=== PATIENT | female | born 1975 | race Caucasian/White ===

== ENCOUNTER 2020-11-06 07:59 | Outpatient (REF) | payer OTHER, SELFPAY ==
[2020-11-06 11:24] LABS: MANUAL DIFF FLAG NO
[2020-11-06 11:37] LABS: Basophils Absolute Auto 0.1 X10*3/uL (0.0-0.2); Basophils Percent Auto 0.7 % (0-2); Eosinophils Absolute Auto 0.4 X10*3/uL (0.0-0.4); Eosinophils Percent Auto 4.8 % (0-4); Hematocrit 39.3 % (37-47); Imm Gran Abs Auto 0.03 X10*3/uL (0.00-0.03); Imm Gran Pct Auto 0.4 % (0.0-0.4); Lymphocytes Absolute Auto 1.8 X10*3/uL (1.2-4.9); Lymphocytes Percent Auto 24.4 % (20-40); Mean Corpuscular HGB Conc 33.1 g/dl (31.0-35.0); Mean Corpuscular Hemoglobin 29.7 pg (27.0-33.0); Mean Corpuscular Volume 89.9 fL (80-98); Mean Platelet Volume 10.2 fL (9.4-12.3); Monocytes Absolute Auto 0.6 X10*3/uL (0.1-1.2); Monocytes Percent Auto 7.6 % (2-11); Neutrophils Absolute Auto 4.7 X10*3/uL (2.0-8.3); Neutrophils Percent Auto 62.1 % (45-73); Platelet Count 315 X10*3/uL (160-400); Red Blood Count 4.37 X10*6/uL (4.20-5.50); Red Cell Distribution Width 12.4 % (11.0-16.0); White Blood Count 7.5 X10*3/uL (4.8-10.8)
[2020-11-06 12:25] LABS: Alanine Aminotransferase 17 U/L (0-31); Anion Gap 11 (12-20); Aspartate Amino Transferase 16 U/L (5-31); Blood Urea Nitrogen 13 mg/dL (9-16); Calcium 9.2 mg/dL (8.4-10.2); Carbon Dioxide 29 mmol/L (22-29); Chloride 103 mmol/L (96-108); Cholesterol 235 mg/dL; Estimated Glomerular Filt Rate > 60; Glucose Fasting 87 mg/dL (60-99); HDL Cholesterol 57 mg/dL; LDL Cholesterol Calculated 144 mg/dl; Potassium 3.9 mmol/L (3.3-5.1); Sodium 139 mmol/L (135-145); Triglycerides 172 mg/dL
[2020-11-06 12:48] LABS: Vitamin D 25-OH Total 15.4 ng/mL (>30)
== END 2020-11-06 08:00 | disposition home or self-care (01) ==
LOC: HO.HMGCLDS 07:59
PROVIDERS: PCP Internal Medicine; Visit Provider Internal Medicine
DX: K58.9 Irritable bowel syndrome, unspecified (principal); L30.9 Dermatitis, unspecified; I10 Essential (primary) hypertension; Z80.41 Family history of malignant neoplasm of ovary
CPT/HCPCS: 36415; 80048; 80061; 82306; 84443; 84450; 84460; 85025

== ENCOUNTER 2020-11-25 08:02 | Outpatient (REF) | payer OTHER, SELFPAY ==
[2020-11-28 04:27] LABS: HPV mRNA E6/E7 rflx Not Detected (Not Detected)
== END 2020-11-25 08:03 | disposition home or self-care (01) ==
LOC: HO.LAB 08:02
PROVIDERS: PCP Internal Medicine; Visit Provider Obstetrics & Gynecology
DX: Z01.419 Encounter for gynecological examination (general) (routine) without abnormal findings (principal); Z11.51 Encounter for screening for human papillomavirus (HPV); Z80.41 Family history of malignant neoplasm of ovary
CPT/HCPCS: 87624; 88142

== ENCOUNTER 2020-12-08 13:58 | Outpatient (REF) | payer OTHER, SELFPAY ==
--- NOTE | ~2020-12-08 | US_ITS ---
EXAMINATION: PELVIC ULTRASOUND CLINICAL INFORMATION: Family history of malignant neoplasms of ovary. COMPARISON: None TECHNIQUE: Both transabdominal and endovaginal scanning was performed. FINDINGS: An anteverted anteflexed uterus measuring 8.2 x 3.5 x 5.0 cm is present. The endometrium appears normal at 1 cm. Right ovary measures 4.5 x 4.0 x 3.3 cm for a volume of 31 mL which includes a 3.5 x 1.8 x 2.6 cm cyst along with a 1.8 x 1.8 x 1.8 cm cyst. The left ovary measures 2.1 x 1.1 x 2.0 cm for a volume of 2.4 mL and appears normal. No free fluid is present in the cul-de-sac. Incidental note made of nabothian cysts. US/US pelvic and transvaginal IMPRESSION: Right-sided ovarian cysts present, the largest 3.5 cm. In most cases, such cysts do not require follow-up.
== END 2020-12-08 13:59 | disposition home or self-care (01) ==
LOC: HO.US 13:58
PROVIDERS: Visit Provider Obstetrics & Gynecology
DX: Z80.41 Family history of malignant neoplasm of ovary (principal)
CPT/HCPCS: 76830; 76856

== ENCOUNTER 2020-12-18 13:03 | Outpatient (REF) | payer OTHER, SELFPAY ==
[2020-12-24 16:08] LABS: Transglutaminase Ab IgG 5 U/mL; Transglutaminase IgA 1 U/mL
== END 2020-12-18 13:04 | disposition home or self-care (01) ==
LOC: HO.LAB 13:03
PROVIDERS: PCP Internal Medicine; Referring Provider Internal Medicine; Visit Provider Nurse Practitioner Family
DX: R10.11 Right upper quadrant pain (principal); R14.0 Abdominal distension (gaseous); K21.9 Gastro-esophageal reflux disease without esophagitis; K58.9 Irritable bowel syndrome, unspecified; R10.9 Unspecified abdominal pain; K59.00 Constipation, unspecified
CPT/HCPCS: 36415; 83516

== ENCOUNTER → 2020-12-22 11:37 | Outpatient (BNVA) | payer OTHER, SELFPAY | PROVIDERS: PCP Internal Medicine; Visit Provider Obstetrics & Gynecology ==

== ENCOUNTER 2020-12-29 17:56 | Outpatient (REF) | payer OTHER, SELFPAY | END 2020-12-29 17:57 | disposition home or self-care (01) | LOC: HO.LNP 17:56 | PROVIDERS: Visit Provider Nurse Practitioner Family | DX: K21.9 Gastro-esophageal reflux disease without esophagitis (principal) | CPT/HCPCS: 87338 ==

== ENCOUNTER 2021-02-16 08:04 | Day surgery (SDC) | payer OTHER, SELFPAY ==
[2021-02-11 09:53] VITALS: BMI 31.1
--- NOTE | 2021-02-16 08:08 | P.CONAN_ITS ---
[facility] Active Problems Active Problems: All Active Problems (Updated 11/24/20 @ 09:36 by Jesica ya MD) IBS (irritable bowel syndrome) (Acute) Acute eczema (Acute) Cellulitis of buttock, right (Acute) History of repair of anterior cruciate ligament of right knee (Acute) Depression (Acute) Chronic GERD (Acute) Family history of ovarian cancer (Acute) Past Medical History Medical History Chronic GERD Depression Family history of ovarian cancer Gastric ulcer Functional capacity: independent ambulation Patient : No Family History Family History Mother Ovarian cancer Father Bladder cancer Alzheimer disease HTN (hypertension) Maternal Aunt Endometrium cancer Diabetes HTN (hypertension) Family/Other Breast cancer Paternal Uncle Heart attack Paternal Uncle Lung cancer Paternal Grandfather Stroke Maternal Grandfather Parkinsons disease Paternal Grandmother Diabetes Family history of problems with anesthesia: No Surgical History Surgical History History of esophagogastroduodenoscopy (EGD) History of repair of anterior cruciate ligament of right knee History of Problems with Anesthesia: No Social History Social History Are you a primary career services manager to a significant other at home: No Alcohol intake: current Alcohol intake frequency: 0-2 drinks per day Alcohol type: wine Patient Tobacco Use Status: Never used Tobacco Use of substances other than those prescribed or required for medical reasons: No Are you DNR?: No Advance Directives: No Advance Directives Information Provided: No Advance Directives on File: No Patient : No FDLMP: 01/08/2021 Gender identity: Female Meds Allergies Allergy/AdvReac Type Severity Reaction Status Date / Time No Known Allergies Allergy Verified 02/11/21 09:52 Active Medications: Current Medications Generic Name Dose Route Start Last Admin Trade Name Freq PRN Reason Stop Dose Admin Lactated Ringer's 1,000 mls @ 50 mls/hr 02/16/21 08:15 Lr IVCONT .Q20H ESTELLA Home Medications Medication Instructions Recorded Confirmed Last Taken Type cetirizine 10 mg tablet (Zyrtec) 10 mg PO DAILY 11/03/20 02/11/21 Unknown History triamcinolone acetonide 0.025 % appl TOPICAL BID 11/24/20 12/18/20 Unknown History topical cream triamcinolone acetonide 0.1 % 1 applic TOPICAL BID-TID 11/24/20 12/18/20 Unknown History topical cream esomeprazole magnesium 20 mg 20 mg PO DAILY 12/18/20 02/11/21 Unknown History capsule,delayed release pimecrolimus 1 % topical cream appl TOPICAL BEDTIME 12/18/20 12/18/20 Unknown History Exam Exam Date and Time: February 16, 2021 0808 Height,Weight and Vital Signs: Height 5 ft 8 in Weight 92.986 kg Airway Mallampati Class: II TM Dist: >3cm Neck ROM: Full Heart: RRR Lungs: TA Assessment and Plan Final Anesthetic Review Family History of Problems with Anesthesia: No History of Problems with Anesthesia: No
--- NOTE | 2021-02-16 08:10 | MHC.SHP ---
Pre-Procedural Eval Section A Date of Service: 02/16/21 The patient is an INPATIENT: No The History & Physical has been completed within 30 days and I have reviewed it.: No Section B Chief Complaint: GERD Details of Present Illness: GERD, abdominal bloating Relevant Family History (Specify if Yes): Yes Relevant Social History: None Present Medications: see Short Stay Collaborative assessment Medical History: Significant History (Chronic GERD Depression Family history of ovarian cancer Gastric ulcer) History of Previous Operations: Relevant previous surgery/procedure and date(s) (History of repair of anterior cruciate ligament of right knee) Allergies: Allergies Allergy/AdvReac Type Severity Reaction Status Date / Time No Known Allergies Allergy Verified 02/11/21 09:52 Review of Systems Sugical H&P ROS: Negative: Constitution, Cardiovascular and Respiratory and Yes, Specify: Gastrointestinal (gas and bloating) Exam Surgical H&P Exam: Normal: Heart, Normal: Lungs, Normal: Extremities and Normal: Abdomen Plan Diagnosis/Plan: Unchanged I have reviewed the history and physical and performed a pertinent physical examination on my patient. No changes have occurred unless specified.
[2021-02-16 08:25] LABS: UPreg QC Valid YES; Urine Pregnancy NEGATIVE (NEGATIVE)
[2021-02-16] MEDS: Lactated Ringers 1,000 ML 50 ML IVCONT (08:30)
[2021-02-16 08:34] VITALS: BP 118/72; PULSE 75; RESP 16; TEMP 36.4; O2SAT 97
--- NOTE | 2021-02-16 09:08 | P.BOP_ITS ---
Brief Operative Note Date of Service: 02/16/21 Pre-op diagnosis: GERD, gas and bloating Post-op diagnosis: other (GERD, hiatal hernia, gastric ulcer, gastritis, gastric polyps, gastric nodule) Procedure: FLEXIBLE TRANSORAL UPPER GASTROINTESTINAL ENDOSCOPY WITH BIOPSIES Consent: Indications for the procedure and potential complications of bleeding, perforation, reaction to medications and missed diagnosis were discussed with the patient and informed consent was obtained. Instrument: Olympus GIF H 190 mid size upper endoscope Monitoring: Vital signs and clinical assessment, continuous EKG monitoring, Pulse oximetry, Carbon Dioxide monitoring and blood pressure monitoring were done throughout the procedure. Procedure: The patient was placed in the left lateral decubitis position and pre-procedure medications were administered and a bite block was placed. The endoscope was inserted into the mouth and advanced under direct vision to the third part of duodenum. A careful inspection was made as the upper endoscope was withdrawn including a retroflexed examination of the proximal stomach; Findings and interventions are described below. Findings: Larynx: Normal Esophagus: GE junction at 35 cms, hiatal hernia 35 to 39 cms. No esophagitis or Mccormick Stomach: A few 5 to 10 mm benign appearing gastric polyps in the body of the stomach - biopsied. A 7-8 mm chronic appearing ulcer in the pre-pyloric area - biopsied. A 12-15 mm benign appearing nodule in the gastric antrum - biopsied. Antral biopsies were obtained to check for H pylori. Grade 3 flap valve on retroflexed examination of the cardia. Duodenum: Normal bulb and descending duodenum. Biopsies were obtained from 3rd part of the duodenum to check for celiac sprue. Intervention: Biopsies as noted above Impression and Post Procedure Diagnosis: Endoscopy Findings: ESOPHAGUS: medium sized hiatal hernia STOMACH: Small gastric ulcer - likely due to NSAIDS, gastric polyps, antral no dule DUODENUM: Normal - biopsied to check for celiac sprue Plan: Await pathology results Patient has an appointment on 03/02/21 in the GI Clinic with Luiza Leonardo NP . Above findings were reviewed with the patient and GERD, hiatal hernia, PUD and Gastric polyps handouts were given in the discharge area Surgeon: Xochilt Schneider MD Anesthesia: MAC (Dr Roman) Was an Log Pond Worker used for this Procedure?: Yes Log Pond Worker: Casey Go Estimated blood loss (mL): 0 Pathology: other (A- SMALL BOWEL BXS R/O CELIAC B- GASTRIC ANTRUM BXS R/O H. PYLORI C- GASTRIC ULCER BXS D- GASTRIC ANTRAL NODULE E- GASTRIC POLYP) Condition: stable Disposition: PACU
--- NOTE | 2021-02-16 09:10 | W.PM.OPN ---
Operative Note Operative Note Date of Service: 02/16/21 Narrative: Pre-op diagnosis:?GERD, gas and bloating Post-op diagnosis:?other (GERD, hiatal hernia, gastric ulcer, gastritis, gastric polyps, gastric nodule) Procedure:? FLEXIBLE TRANSORAL UPPER GASTROINTESTINAL ENDOSCOPY WITH BIOPSIES Consent:?Indications for the procedure and potential complications of bleeding, perforation, reaction to medications and missed diagnosis were discussed with the patient and informed consent was obtained. Instrument:?Olympus GIF H 190 mid size upper endoscope Monitoring: Vital signs and clinical assessment, continuous EKG monitoring, Pulse oximetry, Carbon Dioxide monitoring and blood pressure monitoring were done throughout the procedure. Procedure:?The patient was placed in the left lateral decubitis position and pre-procedure medications were administered and a bite block was placed. The endoscope was inserted into the mouth and advanced under direct vision to the third part of duodenum. A careful inspection was made as the upper endoscope was withdrawn including a retroflexed examination of the proximal stomach; Findings and interventions are described below. Findings: Larynx:??Normal Esophagus:?GE junction at 35 cms, hiatal hernia 35 to 39 cms.? No esophagitis or Mccormick Stomach:?A few 5 to 10 mm benign appearing gastric polyps in the body of the stomach - biopsied.? A 7-8 mm chronic appearing ulcer in the pre-pyloric area - biopsied. A 12-15 mm benign appearing nodule in the gastric antrum - biopsied.? Antral biopsies were obtained to check for H pylori. Grade 3 flap valve on retroflexed examination of the cardia. Duodenum:?Normal bulb and descending duodenum.? Biopsies were obtained from 3rd part of the duodenum to check for celiac sprue. Intervention:?Biopsies as noted above Impression and Post Procedure Diagnosis: Endoscopy Findings: ESOPHAGUS: medium sized hiatal hernia STOMACH: Small gastric ulcer - likely due to NSAIDS, gastric polyps, antral nodule DUODENUM: Normal - biopsied to check for celiac sprue Plan: Await pathology results Patient has an appointment on 03/02/21 in the GI Clinic with Luiza Leonardo NP . Above findings were reviewed with the patient and GERD, hiatal hernia, PUD and Gastric polyps handouts were given in the discharge area Surgeon:?Xochilt Schneider MD Anesthesia:?MAC (Dr Roman) Was an Mutuel Department Manager used for this Procedure?:?Yes Mutuel Department Manager:?Casey Abbi Estimated blood loss (mL):?0 Pathology:?other (A- SMALL BOWEL BXS? R/O CELIAC? B- GASTRIC ANTRUM BXS? R/O H. PYLORI? C- GASTRIC ULCER BXS? D- GASTRIC ANTRAL NODULE? E- GASTRIC POLYP) Condition:?stable Disposition:?PACU
[2021-02-16 09:42] VITALS: BP 107/72; PULSE 78; RESP 16; TEMP 36.3; O2SAT 97
[2021-02-16 09:57] VITALS: BP 109/74; PULSE 73; RESP 16; O2SAT 97
--- NOTE | 2021-02-16 13:18 | HO.POSTANES ---
Post Anesthesia Evaluation Post Anesthesia Evaluation Vital Signs: Vital Signs Temp Pulse Resp BP Pulse Ox 02/16/21 09:57 73 16 109/74 97 02/16/21 09:42 97.4 F 78 16 107/72 97 02/16/21 08:34 97.6 F 75 16 118/72 97 Anesthesia: Monitored Mental Status: Awake Pain Control: Satisfactory Nausea/Vomiting: None Hydration: Adequate Anesthesia-Related Issues: No Anes. Related Issues Comments: aziza
== END 2021-02-16 10:55 | disposition home or self-care (01) ==
PROVIDERS: Anesthesiology; PCP Internal Medicine; Visit Provider Internal Medicine Gastroenterology
PROC: 0DJ08ZZ Inspection of Upper Intestinal Tract, Via Natural or Artificial Opening Endoscopic (ICD-10-PCS; CPT 43235; principal; 2021-02-16 09:10)
DX: K21.9 Gastro-esophageal reflux disease without esophagitis (principal); K29.70 Gastritis, unspecified, without bleeding; K31.7 Polyp of stomach and duodenum; K25.9 Gastric ulcer, unspecified as acute or chronic, without hemorrhage or perforation; K31.89 Other diseases of stomach and duodenum; K44.9 Diaphragmatic hernia without obstruction or gangrene
CPT/HCPCS: 43239; 81025; 88305; 88342

== ENCOUNTER → 2021-03-03 08:34 | Outpatient (BNVA) | payer OTHER, SELFPAY | PROVIDERS: PCP Internal Medicine; Visit Provider Nurse Practitioner Family ==

== ENCOUNTER → 2021-04-12 08:11 | Outpatient (BNVA) | payer OTHER, SELFPAY | PROVIDERS: PCP Internal Medicine; Visit Provider Nurse Practitioner Family ==

== ENCOUNTER 2021-05-10 08:11 | Outpatient (REF) | payer OTHER, SELFPAY ==
--- NOTE | ~2021-05-10 | MM_ITS ---
EXAMINATION: MM SCREENING DIGITAL BREAST TOMOSYNTHESIS, BILATERAL CLINICAL INFORMATION: Screening. Asymptomatic. Prior [id number] mammography currently unavailable. Family history premenopausal breast cancer, mother age 43 The lifetime risk of breast cancer based on the Tyrer-Cuzick Model is 15%. COMPARISON: None. TECHNIQUE: Digital breast tomosynthesis is performed in both the craniocaudal and mediolateral oblique views along with computer-aided detection (CAD). Synthesized 2D images are generated from the tomosynthesis. Additional bilateral exaggerated CC views are provided. FINDINGS: The breasts are heterogeneously dense, which may obscure small masses (ACR BI-RADS breast composition Category c). There is fine fibronodular parenchymal pattern. No significant mass or architectural abnormality or abnormal calcifications are demonstrated. The axilla and skin contours are unremarkable. Radiology staff will attempt to retrieve prior [id number]-[id number] mammography to allow for comparison in an addendum report. MM/MM tomosynthesis screening BI IMPRESSION: No mammographic evidence of malignancy. ASSESSMENT: BI-RADS 2: Benign RECOMMENDATION: 1. Routine annual mammography screening. 2. Radiology department staff will attempt to retrieve prior hni-cq-[id number] mammography to allow for comparison in an addendum report. This patient's information was entered into a reminder system with a target due date for their next mammogram.
== END 2021-05-10 08:12 | disposition home or self-care (01) ==
LOC: HO.MAMMO 08:11
PROVIDERS: PCP Internal Medicine; Visit Provider Internal Medicine
DX: Z12.31 Encounter for screening mammogram for malignant neoplasm of breast (principal)
CPT/HCPCS: 77063; 77067

== ENCOUNTER → 2021-05-25 10:22 | Outpatient (BNVA) | payer OTHER, SELFPAY | PROVIDERS: PCP Internal Medicine; Referring Provider Internal Medicine; Visit Provider Nurse Practitioner Family ==

== ENCOUNTER 2021-12-24 07:52 | Outpatient (REF) | payer OTHER, SELFPAY ==
[2021-12-24 12:00] LABS: MANUAL DIFF FLAG NO
[2021-12-24 12:06] LABS: Basophils Absolute Auto 0.1 X10*3/uL (0.0-0.2); Basophils Percent Auto 0.7 % (0-2); Eosinophils Absolute Auto 0.3 X10*3/uL (0.0-0.4); Eosinophils Percent Auto 4.3 % (0-4); Hematocrit 38.9 % (37.0-47.0); Hemoglobin 12.7 g/dl (12.0-16.0); Imm Gran Abs Auto 0.02 X10*3/uL (0.00-0.03); Imm Gran Pct Auto 0.3 % (0.0-0.4); Lymphocytes Absolute Auto 1.9 X10*3/uL (1.2-4.9); Lymphocytes Percent Auto 28.7 % (20-40); Mean Corpuscular HGB Conc 32.6 g/dl (31.0-35.0); Mean Corpuscular Volume 88.8 fL (80.0-98.0); Mean Platelet Volume 10.3 fL (9.4-12.3); Monocytes Absolute Auto 0.5 X10*3/uL (0.1-1.2); Monocytes Percent Auto 7.2 % (2-11); Neutrophils Percent Auto 58.8 % (45-73); Platelet Count 296 X10*3/uL (160-400); Red Blood Count 4.38 X10*6/uL (4.20-5.50); Red Cell Distribution Width 12.3 % (11.0-16.0); White Blood Count 6.8 X10*3/uL (4.8-10.8)
[2021-12-24 12:44] LABS: TSH reflex Free T4 3.05 uIU/mL (0.32-4.0); Vitamin D 25-OH Total 20.8 ng/mL (>30)
[2021-12-24 12:46] LABS: Alanine Aminotransferase 18 U/L (0-31); Albumin Level 4.2 g/dL (3.5-5.0); Alkaline Phosphatase 58 U/L (39-117); Anion Gap 12 (12-20); Aspartate Amino Transferase 16 U/L (5-31); Blood Urea Nitrogen 17 mg/dL (9-16); Calcium 9.1 mg/dL (8.4-10.2); Carbon Dioxide 26 mmol/L (22-29); Chloride 106 mmol/L (96-108); Cholesterol 229 mg/dL; Estimated Glomerular Filt Rate > 60; Glucose Fasting 102 mg/dL (60-99); HDL Cholesterol 59 mg/dL; LDL Cholesterol Calculated 147 mg/dl; Potassium 4.3 mmol/L (3.3-5.1); Sodium 140 mmol/L (135-145); Total Protein 7.1 g/dL (6.5-8.0); Triglycerides 115 mg/dL
[2021-12-24 13:56] LABS: Bilirubin Total 0.3 mg/dL (0.0-1.0)
== END 2021-12-24 07:53 | disposition home or self-care (01) ==
LOC: HO.HMGCLDS 07:52
PROVIDERS: PCP Internal Medicine; Visit Provider Internal Medicine
DX: Z00.01 Encounter for general adult medical examination with abnormal findings (principal); E78.5 Hyperlipidemia, unspecified; L30.9 Dermatitis, unspecified; F32.9 Major depressive disorder, single episode, unspecified; E55.9 Vitamin D deficiency, unspecified; K21.9 Gastro-esophageal reflux disease without esophagitis
CPT/HCPCS: 36415; 80053; 80061; 82306; 84443; 85025

== ENCOUNTER 2022-01-28 08:30 | Outpatient (REF) | payer OTHER, SELFPAY ==
--- NOTE | ~2022-01-28 | US_ITS ---
EXAMINATION: US PELVIS CLINICAL INFORMATION: Family history of malignant neoplasm of ovary. COMPARISON: Ultrasound pelvis 12/08/2020 TECHNIQUE: Ultrasound of the pelvis was performed using both transabdominal and transvaginal transducers along with Doppler. Transvaginal imaging was performed due to inadequate visualization transabdominally. FINDINGS: UTERUS: The uterus is anteverted, anteflexed and measures 9.17 cm in length, 4.21 mL in AP and 5.4 cm in transverse dimensions. The double wall endometrial thickness is 0.72 cm. The uterus is smooth in contour and has normal myometrial echogenicity. No visible fibroid. There is a small nabothian cyst in the cervix. ADNEXA: Both ovaries are visualized. There is normal color flow to the adnexa. There is no ovarian torsion. There is no pelvic ascites or fluid collection. Right ovary measures 4.57 cm 2.40 x 3.95 cm and volume 22.68 mL. There is a corpus luteal cyst measuring 2.3 x 1.8 x 1.5 cm and a paraovarian cyst measuring 2.2 x 2.5 x 2.1 cm, previously it measured 1.8 x 1.8 x 1.8 cm. Left ovary is best visualized on transabdominal viewing and measures 2.77 x 1.35 x 2.23 cm and volume 4.3 cm. No focal lesion is seen. There is no free fluid in the cul-de-sac. US/US pelvic and transvaginal IMPRESSION: Small nabothian cyst in the cervix. The uterus is unremarkable. Right ovarian corpus luteal cyst and a paraovarian cyst.. Previously right ovary cyst was present largest measuring 3.5 cm. The cyst seen now is is likely different cyst.. Unremarkable left ovary.
== END 2022-01-28 08:31 | disposition home or self-care (01) ==
LOC: HO.HMGCX 08:30
PROVIDERS: PCP Internal Medicine; Visit Provider Advanced Practice Midwife
DX: R10.2 Pelvic and perineal pain (principal); Z80.41 Family history of malignant neoplasm of ovary
CPT/HCPCS: 76830; 76856

== ENCOUNTER 2022-05-20 15:23 | Outpatient (REF) | payer OTHER, SELFPAY ==
--- NOTE | ~2022-05-20 | MM_ITS ---
EXAMINATION: MM SCREENING DIGITAL BREAST TOMOSYNTHESIS, BILATERAL CLINICAL INFORMATION: Screening. Asymptomatic. The lifetime risk of breast cancer based on the Tyrer-Cuzick Model is 11%. COMPARISON: Mammography: 05/10/2021; outside 2D synthesized images 05/04/2020 ([place], [place]). TECHNIQUE: Digital breast tomosynthesis is performed in both the craniocaudal and mediolateral oblique views along with computer-aided detection (CAD). Synthesized 2D images are generated from the tomosynthesis. FINDINGS: The breasts are heterogeneously dense, which may obscure small masses (ACR BI-RADS breast composition Category c). Breast tissue composition borders on average fibroglandular. There is fine fibronodular parenchymal pattern similar to prior studies. No developing density or interval mass or architectural abnormality. No abnormal calcifications. The axilla and skin contours are unremarkable. No significant changes. MM/MM tomosynthesis screening BI IMPRESSION: No mammographic evidence of malignancy. ASSESSMENT: BI-RADS 2: Benign RECOMMENDATION: Routine annual mammography screening. This patient's information was entered into a reminder system with a target due date for their next mammogram.
== END 2022-05-20 15:24 | disposition home or self-care (01) ==
LOC: HO.MAMMO 15:23
PROVIDERS: Visit Provider Internal Medicine
DX: Z12.31 Encounter for screening mammogram for malignant neoplasm of breast (principal)
CPT/HCPCS: 77063; 77067

== ENCOUNTER 2023-02-06 08:23 | Outpatient (AMB) | payer OTHER, SELFPAY ==
--- NOTE | 2023-02-06 08:34 | A.OFFVIS_ITS ---
Intake Vital Signs 02/06/23 08:36 Height 5 ft 8.5 in Weight 212 lb 1.355 oz BMI 31.8 BP 106/61 Blood Pressure Location Lt brachial Position Sitting Pulse 88 Intake Visit Reasons: Colonoscopy Screening Intake Note: Etelvina presents in office as a est.patient for a colonoscopy screening PT CC: pt reports having GERD pt denies any other GI Issues Member Of Congress Required: No Accompanied by: Self / Same As Patient Allergies muscle relaxer Adverse Reaction (Mild, Uncoded 02/06/23 08:34) hives HPI Colonoscopy Screening HPI Details LAST VISIT 05/25/2021 IBS (irritable bowel syndrome) Patient reports that she has been moving her bowels normally. Does report to have occasional bloating. Continue FODMAP diet as recommended on previous visits. Patient reports that she has been using MiraLax and that is helping her with bowel movements. Chronic GERD Acid reflux and sucralfate at bedtime. I will send patient a refill for both. Discussed with patient avoiding dietary triggers and NSAIDs. Discussed with her avoiding late night snacking. I will see her in 6 months, sooner on as needed basis. Patient is agreeable to this plan and verbalizes understanding of instructions. She was given the opportunity to ask questions and all questions answered. Plan Medications Refilled pantoprazole take one tablet half an hour before breakfast 40 mg PO DAILY 90 tabs 3RF K21.9 sucralfate 1 g PO BEDTIME 90 tabs 3RF K21.9 TODAY'S VISIT: Patient is here to as she continues to have epigastric discomfort and dyspepsia postprandially. Patient denies dysphagia or odynophagia. Patient was seen last in May of 2021. Patient states that she was feeling better and she did not follow-up with us. Patient was on pantoprazole and was doing well. Medication was stopped and patient was taking famotidine twice a day. However few weeks a go patient states that she began to have increase in her his symptoms of epigastric pain and discomfort postprandially. Patient does report that she is trying to avoid dietary triggers as much as possible. She realizes that some of her symptoms could be related to the food that she eats. Patient started [id number] Prilosec about couple weeks ago. This past week patient states that she has been doing better. Using Tums only once in a while for epigastric discomfort. Patient had upper endoscopy in January of 2021 that showed gastric ulcer. Patient is also due to go for colonoscopy. No family history of colorectal cancer. No issues with anesthesia in the past. Not on any anticoagulation medications. Patient denies any cardiac or respiratory symptoms. No history of infectious diseases in the past or present. [facility] Medical History Chronic GERD Colon cancer screening Depression Dyslipidemia Family history of ovarian cancer Gastric ulcer Impaired fasting glucose Vitamin D deficiency Surgical History History of esophagogastroduodenoscopy (EGD) History of repair of anterior cruciate ligament of right knee Family History Mother Ovarian cancer Father Bladder cancer Alzheimer disease HTN (hypertension) Maternal Aunt Endometrium cancer Diabetes HTN (hypertension) Family/Other Breast cancer Paternal Uncle Heart attack Paternal Uncle Lung cancer Paternal Grandfather Stroke Maternal Grandfather Parkinsons disease Paternal Grandmother Diabetes Social History Housing: House Are you a primary care transition manager to a significant other at home: No Alcohol intake: current Alcohol intake frequency: 0-2 drinks per day Alcohol type: wine Patient Tobacco Use Status: Never used Tobacco e-Cigarette/Vaping Use: Never Used service: No Current occupational status: employed Gender identity: Female Cognitive needs: No Hearing needs: No Vision needs: No Female Reproductive History Menstrual Age of Menarche: 15 Review of Systems Const Denies weight gain and Denies weight loss ENT Reports no additional complaints, Denies dysphagia and Denies odynophagia Card Reports no additional complaints Resp Reports no additional complaints GI Denies abdominal pain, Denies belching, Denies melena, Denies bloating, Reports constipation, Denies dysphagia, Denies excessive flatus, Reports dyspepsia, Reports heartburn, Denies diarrhea, Denies loose stools, Denies nausea, Denies odynophagia and Denies vomiting Reports no additional complaints Musc Reports no additional complaints Neuro Reports no additional complaints Psych Reports no additional complaints Endo Reports no additional complaints Physical Exam Vital Signs: Last Vital Signs Pulse 88 02/06/23 08:36 BP 106/61 02/06/23 08:36 BMI result Body Mass Index 31.8 Const General: healthy appearing, no acute distress and well developed Nutritional Appearance: obese Orientation/consciousness: patient oriented x3 HEENT Head: Yes normal to inspection, Yes normocephalic and Yes atraumatic Face and sinus: Yes normal facial exam Mouth: Normal oral and palatal mucosa present Throat: Yes posterior oropharynx normal, Yes tonsils normal and Yes uvula midline Eyes General: appearance normal, both eyes and all related structures Neck Neck: Yes normal visual inspection, Yes full ROM and Yes trachea midline Thyroid: Thyroid normal Resp Effort & Inspection: normal respiratory effort, able to speak in complete sentences, no tracheal deviation and symmetric chest movement Auscultation: clear to auscultation bilaterally Cardio Rate: regular rate Heart sounds: S1 normal heart sound present and S2 normal heart sound present GI Inspection: Yes normal to inspection, No distended and Yes obesity Palpation (GI): Soft to palpation, not firm, nontender and No hepatosplenomegaly present Auscultation: normal bowel sounds General: Yes no CVA tenderness Back/Spine/Pelvis Back: no CVA tenderness Skin General skin exam: elasticity normal, turgor normal and dry skin Neuro General: patient oriented x3 Psych Appearance: grossly normal Mental Status: mental status grossly normal Speech and movement: Normal speech and movement present Assessment & Plan Assessment & Plan (1) Colon cancer screening: Code(s): Z12.11 - Encounter for screening for malignant neoplasm of colon Plan: Patient denies any cardiac or respiratory symptoms.? However patient does report occasional epigastric discomfort postprandially, occasional dyspepsia without dysphagia or odynophagia. Denies any issues with anesthesia in the past.? Denies any history of sleep apnea.? No history infectious diseases in the past or present.? Not on any anticoagulation therapy.? No family or personal history of colon cancer or polyps.? Patient denies melena, hematochezia, unintentional weight loss or ribbon like stools.? Discussed at length the pre-procedure,? prep, diet & medications as well as what to expect prior, during and after the procedure.?? Stressed the importance of good bowel prep. ?Recommended the use of Vaseline or Calmoseptine OTC & baby wipes with bowel movements to promote comfort.? ?Patient verbalizes understanding and agrees to plan of care.? She was given the opportunity to ask questions and all questions answered.? We will see her after the procedure.? (2) Chronic GERD: Code(s): K21.9 - Gastro-esophageal reflux disease without esophagitis Plan: Patient will start taking pantoprazole in the morning half an hour before breakfast. Avoid dietary triggers and late night snacking. Importance of staying upright for minimal 3 hours after meals discussed with patient. Patient will go for upper endoscopy to re-evaluate. Patient has a history of ulcers in the past Medications: New pantoprazole take one tablet half an hour before breakfast 40 mg PO DAILY 30 tabs 2RF K21.9 - Gastro-esophageal reflux disease without esophagitis polyethylene glycol 3350 (Miralax) As directed by gastroenterology department at [facility] 238 grams PO ONCE 238 grams 0RF Z12.11 - Encounter for screening for malignant neoplasm of colon Coding Level of Care Code Est Pt Level 4 (99791) Diagnoses Colon cancer screening Z12.11 Chronic GERD K21.9 Time Spent (min) 35 Comment 20 minutes spent with patient and additional 15 minutes spent reviewing her records
[2023-02-06 08:36] VITALS: BP 106/61; PULSE 88; BMI 31.8
== END 2023-02-06 09:30 | disposition home or self-care (01) ==
PROVIDERS: PCP Internal Medicine; Visit Provider Nurse Practitioner Family
DX: Z01.818 Encounter for other preprocedural examination (principal); Z12.11 Encounter for screening for malignant neoplasm of colon; K21.9 Gastro-esophageal reflux disease without esophagitis; K30 Functional dyspepsia
CPT/HCPCS: 99213

== ENCOUNTER → 2023-02-06 08:23 | Outpatient (BNVA) | payer OTHER, SELFPAY | PROVIDERS: PCP Internal Medicine; Visit Provider Nurse Practitioner Family ==

== ENCOUNTER 2023-04-04 08:03 | Outpatient (AMB) | payer OTHER, SELFPAY ==
--- NOTE | 2023-04-04 08:09 | MHC.OFFVIS ---
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 Reports of regular menses until February but has had VB everyday since. She admits to eating healthy and tries to stay active with exercise. Currently sexually active, female only partner. Denies vaginal itching and irritation. She denies any hot flashes, but feels hot overall. History of random pelvic pain, sharp, intense a few times over the last year. Denies family hx of breast, or colon cancer. Has colonoscopy planned. Last pap smear 2020. Negative pap history. [facility] Medical History Impaired fasting glucose Colon cancer screening Vitamin D deficiency Dyslipidemia Depression Chronic GERD Gastric ulcer Family history of ovarian cancer Surgical History History of esophagogastroduodenoscopy (EGD) History of repair of anterior cruciate ligament of right knee Family History Mother Ovarian cancer Father Bladder cancer Alzheimer disease HTN (hypertension) Maternal Aunt Endometrium cancer Diabetes HTN (hypertension) Family/Other Breast cancer Paternal Uncle Heart attack Paternal Uncle Lung cancer Paternal Grandfather Stroke Maternal Grandfather Parkinsons disease Paternal Grandmother Diabetes Social History (Updated 04/04/23 @ 09:04 by Saniya Snow CNM) Housing: House Are you a primary career development coordinator/teacher to a significant other at home: No Alcohol intake: current Alcohol intake frequency: 0-2 drinks per day Alcohol type: wine Patient Tobacco Use Status: Never used Tobacco e-Cigarette/Vaping Use: Never Used service: No Current occupational status: employed Sexual orientation: Lesbian/Granados/Homosexual Gender identity: Female Cognitive needs: No Hearing needs: No Vision needs: No Female Reproductive History Menstrual Age of Menarche: 15 Duration of menses: 3-5 days Date of last menstrual period: 03/10/23 Total pregnancies: 0 Date of last pap smear: 11/25/20 (neg pap and hpv) Date of Mammogram: 05/20/22 ([facility] 2) Physical Exam Vital Signs: Last Vital Signs BP 122/64 04/04/23 08:10 BMI result Body Mass Index 32.1 Const General: cooperative, healthy appearing, no acute distress, well developed and alert Orientation/consciousness: patient oriented x3 HEENT Head: Yes normal to inspection Eyes General: appearance normal, both eyes and all related structures Neck Neck: Yes normal visual inspection Thyroid: Thyroid normal Chest Chest palpation & inspection: normal inspection of the chest Breast/axilla inspection: normal inspection of the breasts (no puckering, dimpling, peau de orange, retraction, discharge, masses) Breast/axilla palpation: normal palpation of the breasts Resp Effort & Inspection: normal respiratory effort GI Inspection: Yes normal to inspection Palpation (GI): Soft to palpation (to palpation) Rectal Exam - Female: deferred Other: Abnormal appearance, Unable to see OS due to to the downward deflection of the cervix fixed to vaginal posterior floor. General: Yes bladder normal to inspection External Female Exam: normal external appearance and normal appearance of the urethra Speculum Exam - Vagina: normal appearance of the vagina, normal palpation and abnormal vaginal discharge (brown discharge) Speculum Exam - Cervix: normal palpation Bimanual exam- vagina & uterus: normal palpation and normal palpation Bimanual Exam- Adnexa, other: normal adnexae and no masses Skin General skin exam: no rashes or lesions noted Neuro General: patient oriented x3 Cognition (Neuro): normal cognition Extrem General: Yes normal to inspection Psych Attitude: cooperative Thought process: Normal thought process present Assessment & Plan Assessment & Plan (1) Encounter for well woman exam: Code(s): Z01.419 - Encounter for gynecological examination (general) (routine) without abnormal findings Plan: Discussed: Current recommendations for pap smears per ASCCP guidelines. Breast awareness and periodic self breast exams. Maintaining a healthy lifestyle including a well balanced diet and routine exercise. Encouraged patient to sign up for patient portal. All of her questions and concerns were addressed to the best of my ability. RTO in one year for AG. (2) Abnormal uterine bleeding (AUB): Code(s): N93.9 - Abnormal uterine and vaginal bleeding, unspecified Plan: Counseled re: perimenopause vs menopause changes. Monitor periods, report any unscheduled bleeding. Warnings: heavy prolonged bleeding-go to the ED for immediate evaluation. Discussed work up including pelvic US, labs and consider future EMB: purpose was explained to rule out atypia, hyperplasia and uterine cancer. (3) Pelvic pain: Comment: random acute episodes Code(s): R10.2 - Pelvic and perineal pain Orders: Orders Complete Blood Count no Diff Today N93.9 - Abnormal uterine and vaginal bleeding, unspecified Pap Smear Today N93.9 - Abnormal uterine and vaginal bleeding, unspecified MM tomosynthesis screening BI Today Z12.31 - Encounter for screening mammogram for malignant neoplasm of breast Thyroid Stimulating Hormone Today N92.1 - Excessive and frequent menstruation with irregular cycle, N93.9 - Abnormal uterine and vaginal bleeding, unspecified US pelvic and transvaginal Today N93.9 - Abnormal uterine and vaginal bleeding, unspecified, R10.2 - Pelvic and perineal pain Bacterial Vaginosis Panel Today N93.9 - Abnormal uterine and vaginal bleeding, unspecified CT NG by PCR Today N93.9 - Abnormal uterine and vaginal bleeding, unspecified Coding Level of Care Code Est Pt Prev Care 40-64y(92481) Diagnoses Encounter for well woman exam Z01.419 Abnormal uterine bleeding (AUB) N93.9 Pelvic pain R10.2
[2023-04-04 08:10] VITALS: BP 122/64; BMI 32.1
== END 2023-04-04 08:59 | disposition home or self-care (01) ==
PROVIDERS: PCP Internal Medicine; Visit Provider Advanced Practice Midwife
DX: Z01.419 Encounter for gynecological examination (general) (routine) without abnormal findings (principal); N93.9 Abnormal uterine and vaginal bleeding, unspecified; R10.2 Pelvic and perineal pain
CPT/HCPCS: 99396

== ENCOUNTER 2023-04-04 08:03 | Outpatient (REF) | payer OTHER, SELFPAY ==
[2023-04-06 04:18] LABS: HPV mRNA E6/E7 rflx Not Detected (Not Detected)
== END 2023-04-04 08:04 | disposition home or self-care (01) ==
LOC: HO.LNP 08:03
PROVIDERS: PCP Internal Medicine; Visit Provider Advanced Practice Midwife
DX: Z01.419 Encounter for gynecological examination (general) (routine) without abnormal findings (principal); Z11.51 Encounter for screening for human papillomavirus (HPV); N93.9 Abnormal uterine and vaginal bleeding, unspecified
CPT/HCPCS: 87624; 88142

== ENCOUNTER 2023-04-04 08:39 | Outpatient (REF) | payer OTHER, SELFPAY ==
[2023-04-04 13:38] LABS: CT PCR NOT DETECTED (Not Detect.); NG PCR NOT DETECTED (Not Detect.)
[2023-04-05 12:57] LABS: BV Int Neg Control Negative (Negative); BV Int Pos Control Positive (Positive)
== END 2023-04-04 08:40 | disposition home or self-care (01) ==
LOC: HO.LAB 08:39
PROVIDERS: Visit Provider Advanced Practice Midwife
DX: N93.9 Abnormal uterine and vaginal bleeding, unspecified (principal); Z20.2 Contact with and (suspected) exposure to infections with a predominantly sexual mode of transmission
CPT/HCPCS: 0353U; 87480; 87510; 87660

== ENCOUNTER 2023-04-21 12:49 | Outpatient (REF) | payer OTHER, SELFPAY ==
--- NOTE | ~2023-04-21 | US_ITS ---
EXAMINATION: US PELVIS CLINICAL INFORMATION: Vaginal bleeding COMPARISON: 12/08/2020 TECHNIQUE: Ultrasound of the pelvis is performed using both transabdominal and transvaginal transducers along with Doppler. Transvaginal imaging is performed due to inadequate visualization transabdominally. FINDINGS: LMP 04/05/2023 Uterus: The uterus is anteverted and measures 8.8 x 3.8 x 4.8 cm. The double wall endometrial thickness is 1.3 mm. The uterus is smooth in contour and has normal myometrial echogenicity. There is single 1.5 x 1.0 x 1.3 cm uterine fibroid in the right side of myometrium. Adnexa: Both ovaries are visualized. There is normal color flow to the adnexa. There is no ovarian torsion. There is no pelvic ascites or fluid collection. Right ovary measures 5.7 x 3.7 x 2.56 cm. With a volume of 27.6 mL. There is simple 3.0 x 2.8 x 2.5 cm cyst, complex 2.9 x 2.3 x 2.4 cm. There is normal vascular flow in right ovary. Left ovary measures 2.9 x 1.8 x 1.4 cm. With a volume of 3.7 cm There are nabothian cysts present there is prominent cervical canal US/US pelvic and transvaginal IMPRESSION: Cysts in the right ovary. Left ovary unremarkable. Single uterine fibroid.
[2023-04-21 14:44] LABS: Hematocrit 39.4 % (37.0-47.0); Hemoglobin 13.2 g/dl (12.0-16.0); Mean Corpuscular HGB Conc 33.5 g/dl (31.0-35.0); Mean Corpuscular Hemoglobin 29.2 pg (27.0-33.0); Mean Corpuscular Volume 87.2 fL (80.0-98.0); Platelet Count 296 X10*3/uL (160-400); Red Blood Count 4.52 X10*6/uL (4.20-5.50); Red Cell Distribution Width 12.3 % (11.0-16.0); White Blood Count 8.8 X10*3/uL (4.8-10.8)
== END 2023-04-21 12:50 | disposition home or self-care (01) ==
LOC: HO.US 12:49
PROVIDERS: PCP Internal Medicine; Visit Provider Advanced Practice Midwife
DX: R10.2 Pelvic and perineal pain (principal); N92.1 Excessive and frequent menstruation with irregular cycle; N93.9 Abnormal uterine and vaginal bleeding, unspecified
CPT/HCPCS: 36415; 76830; 76856; 84443; 85027

== ENCOUNTER 2023-05-05 09:23 | Day surgery (SDC) | payer OTHER, SELFPAY ==
--- NOTE | 2023-05-04 11:48 | P.CONAN_ITS ---
Documented by User: Radha Gaffney NP 05/04/23 11:48 HPI - Anesthesia Eval Consult details Narrative: 47yo F for Upper Endoscopy and Colonoscopy PMF Active Problems Active Problems: All Active Problems (Updated 04/04/23 @ 09:05 by Saniya Snow CNM) Impaired fasting glucose (Acute) Colon cancer screening (Acute) Encounter to discuss test results (Acute) Family history of malignant neoplasm of ovary in first degree relative (Acute) Cervical cancer screening (Acute) Well woman exam with routine gynecological exam (Acute) Pelvic pain (Acute) Vitamin D deficiency (Acute) Dyslipidemia (Acute) IBS (irritable bowel syndrome) (Acute) Acute eczema (Acute) History of repair of anterior cruciate ligament of right knee (Acute) Depression (Acute) Chronic GERD (Acute) Family history of ovarian cancer (Acute) Past Medical History Medical History (Updated 04/04/23 @ 09:05 by Saniya Snow CNM) BRCA negative Impaired fasting glucose Colon cancer screening Vitamin D deficiency Dyslipidemia Depression Chronic GERD Gastric ulcer Family history of ovarian cancer Family History Family History Mother Ovarian cancer Father Bladder cancer Alzheimer disease HTN (hypertension) Maternal Aunt Endometrium cancer Diabetes HTN (hypertension) Family/Other Breast cancer Paternal Uncle Heart attack Paternal Uncle Lung cancer Paternal Grandfather Stroke Maternal Grandfather Parkinsons disease Paternal Grandmother Diabetes Family history of problems with anesthesia: No Surgical History Surgical History History of esophagogastroduodenoscopy (EGD) History of repair of anterior cruciate ligament of right knee History of Problems with Anesthesia: No Social History Social History (Updated 04/04/23 @ 09:04 by Saniya Snow CNM) Housing: House Are you a primary healthcare customer service to a significant other at home: No Alcohol intake: current Alcohol intake frequency: 0-2 drinks per day Alcohol type: wine Patient Tobacco Use Status: Never used Tobacco e-Cigarette/Vaping Use: Never Used Use of substances other than those prescribed or required for medical reasons: No Are you DNR?: No Advance Directives: No Advance Directives Information Provided: Yes service: No Current occupational status: employed Sexual orientation: Lesbian/Granados/Homosexual Gender identity: Female Cognitive needs: No Hearing needs: No Vision needs: No Meds Allergies Allergy/AdvReac Type Severity Reaction Status Date / Time muscle relaxer AdvReac Mild hives Uncoded 04/04/23 08:10 Home Medications Medication Instructions Recorded Confirmed Last Taken Type cetirizine 10 mg tablet (Zyrtec) 10 mg PO DAILY 11/03/20 02/10/22 02/16/21 07:00 History Assessment and Plan Assessment Anesthesia Assessment: Chart Reviewed Final Anesthetic Review Family History of Problems with Anesthesia: No History of Problems with Anesthesia: No Documented by User: Carolyn West MD 05/05/23 12:00 [facility] Past Medical History Medical History (Updated 04/04/23 @ 09:05 by Saniya Snow CNM) BRCA negative Impaired fasting glucose Colon cancer screening Vitamin D deficiency Dyslipidemia Depression Chronic GERD Gastric ulcer Family history of ovarian cancer Family History Family History Mother Ovarian cancer Father Bladder cancer Alzheimer disease HTN (hypertension) Maternal Aunt Endometrium cancer Diabetes HTN (hypertension) Family/Other Breast cancer Paternal Uncle Heart attack Paternal Uncle Lung cancer Paternal Grandfather Stroke Maternal Grandfather Parkinsons disease Paternal Grandmother Diabetes Surgical History Surgical History History of esophagogastroduodenoscopy (EGD) History of repair of anterior cruciate ligament of right knee History of Problems with Anesthesia: No Social History Social History (Updated 04/04/23 @ 09:04 by Saniya Snow CNM) Housing: House Are you a primary healthcare customer service to a significant other at home: No Alcohol intake: current Alcohol intake frequency: 0-2 drinks per day Alcohol type: wine Patient Tobacco Use Status: Never used Tobacco e-Cigarette/Vaping Use: Never Used Use of substances other than those prescribed or required for medical reasons: No Are you DNR?: No Advance Directives: No Advance Directives Information Provided: Yes service: No Current occupational status: employed Sexual orientation: Lesbian/Granados/Homosexual Gender identity: Female Cognitive needs: No Hearing needs: No Vision needs: No Meds Allergies Allergy/AdvReac Type Severity Reaction Status Date / Time muscle relaxer AdvReac Mild hives Uncoded 04/04/23 08:10 Home Medications Medication Instructions Recorded Confirmed Last Taken Type cetirizine 10 mg tablet (Zyrtec) 10 mg PO DAILY 11/03/20 02/10/22 02/16/21 07:00 History Exam Airway Mallampati Class: II TM Dist: >3cm Neck ROM: Full Heart: rrr Lungs: cta Assessment and Plan Assessment Anesthesia Assessment: Anesthesia Plan Discussed Final Anesthetic Review History of Problems with Anesthesia: No NPO: Yes ASA Class: II Final Preanesthetic Review: No Changes in Pt Med Stat, Meds/Allgs Chart Reviewed, Consent Obtained/Reviewed and Anes Risks/Benef Reviewed Patient Risk: Low Procedure Risk: Low Anesthetic Plan Anesthetic Plan: MAC: Disposition: Standard PACU
--- NOTE | 2023-05-05 10:53 | MHC.SHP ---
Pre-Procedural Eval Section A Date of Service: 05/05/23 The patient is an INPATIENT: No The History & Physical has been completed within 30 days and I have reviewed it.: No Section B Chief Complaint: Colon cancer screening, dyspepsia, epigastric pain Relevant Family History (Specify if Yes): No Relevant Social History: None Present Medications: see Short Stay Collaborative assessment Medical History: Significant History (Chronic GERD Colon cancer screening Depression Dyslipidemia Family history of ovarian cancer Gastric ulcer Impaired fasting glucose Vitamin D deficiency) History of Previous Operations: Relevant previous surgery/procedure and date(s) (History of esophagogastroduodenoscopy (EGD) History of repair of anterior cruciate ligament of right knee) Allergies: Allergies Allergy/AdvReac Type Severity Reaction Status Date / Time muscle relaxer AdvReac Mild hives Uncoded 04/04/23 08:10 Review of Systems Sugical H&P ROS: Negative: Constitution, Cardiovascular, Respiratory and Gastrointestinal Exam Surgical H&P Exam: Normal: Heart, Normal: Lungs, Normal: Extremities and Normal: Abdomen Plan Diagnosis/Plan: Unchanged I have reviewed the history and physical and performed a pertinent physical examination on my patient. No changes have occurred unless specified. Time Spent With Patient Time: Total time managing care of this patient today ____ minutes.
[2023-05-05 11:13] LABS: UPreg QC Valid YES; Urine Pregnancy NEGATIVE (NEGATIVE)
[2023-05-05 11:21] VITALS: BP 119/75; PULSE 76; RESP 20; TEMP 36.4; O2SAT 99; BMI 31.5
[2023-05-05] MEDS: Lactated Ringers 1,000 ML 100 ML IVCONT (11:25)
--- NOTE | 2023-05-05 11:51 | P.OP_ITS ---
Operative Note Operative Note Date of Service: 05/05/23 Narrative: FLEXIBLE TRANSORAL UPPER GASTROINTESTINAL ENDOSCOPY WITH BIOPSIES AND COLONOSCOPY TILL CECUM WITH Pre-op diagnosis: screening, epigastric pain, dyspepsia Post-op diagnosis: Hiatal hernia, gastritis, gastric polyps, gastric antral nodule, Diverticulosis Endoscopist:? Xochilt Schneider MD Anesthesia:?MAC UPPER ENDOSCOPY Consent: Indications for the procedure and potential complications of bleeding, perforation, reaction to medications and missed diagnosis were discussed with the patient and informed consent was obtained. Instrument: Olympus GIF H 190 mid size upper endoscope Monitoring: Vital signs and clinical assessment, continuous EKG monitoring, Pulse oximetry, Carbon Dioxide monitoring and blood pressure monitoring were done throughout the procedure. Procedure: The patient was placed in the left lateral decubitis position and pre-procedure medications were administered and a bite block was placed. The endoscope was inserted into the mouth and advanced under direct vision to the third part of duodenum. A careful inspection was made as the upper endoscope was withdrawn including a retroflexed examination of the proximal stomach; Findings and interventions are described below. Findings: Larynx: Normal Esophagus: GE junction at 35 cms, small hiatal hernia 35 to 37 cms. No esophagitis or Mccormick's. Stomach: Two 3-4 mm benign appearing polyps in the gastric body - biopsied. A 10 mm benign appearing nodule in the pre-pyloric area - biopsied. Mild gastric erythema. Biopsies were obtained. Grade 2 flap valve on retroflexed examination of the cardia. Duodenum: Normal bulb and descending duodenum Intervention: Biopsies as noted above COLONOSCOPY PROCEDURE NOTE Consent: Indications for the procedure and potential complications of bleeding, perforation, reaction to medications and missed diagnosis were discussed with the patient and informed consent was obtained. Instrument: Olympus PCF H 190 L variable stiffness pediatric colonoscope Monitoring: Vital signs and clinical assessment, intermittent blood pressure monitoring, continuous EKG monitoring, Pulse oximetry and Carbon Dioxide monitoring were done throughout the procedure. Colon withdrawl time was 12 minutes. Procedure: The patient was placed in the left lateral decubitis position and pre-procedure medications were administered. After a digital rectal examination of the ano-rectum, the video colonoscope was inserted into the rectum and advanced through the colon to the cecum. The colonoscope was slowly withdrawn in a retrograde panoramic fashion and the colon mucosa was carefully examined including a retroflexed view of the rectum. Findings and interventions are described below. Procedure Difficulty: Colon was long and tortuous and there was some loop formation. Patient was placed in the supine position and LLQ pressure was applied to intubate the ascending colon/cecum Findings: Terminal Ileum: Not evaluated Cecum: Normal Ascending Colon: Normal Transverse Colon: Normal Descending Colon: Normal Sigmoid Colon: Moderate diverticulosis Rectum: Normal Ano-rectum: Normal Colon preparation: Good after some irrigation Impression and Post Procedure Diagnosis: Endoscopy Findings: ESOPHAGUS: Small hiatal hernia 35 to 37 cms. No esophagitis or Mccormick's. STOMACH: Two 3-4 mm benign appearing polyps in the gastric body - biopsied. A 10 mm benign appearing nodule in the pre-pyloric area - biopsied. Mild gastric erythema. Biopsies were obtained. Colonoscopy Findings: No polyps were detected Moderate diverticulosis seen in the sigmoid colon Plan: Patient has an appointment on 05/22/23 in the GI Clinic with Deborah Leonardo FNP- [facility]. Repeat Colonoscopy in 10 years (adult colonoscope for future colonoscopies). Above findings were reviewed with the patient and hiatal hernia, gastric polyps and diverticulosis handouts were given in the discharge area BIOPSIES SHOWED: A. Gastric antrum, biopsy: Gastric antral mucosa with reactive changes and minimal chronic gastritis with rare neutrophils; negative for H pylori, intestinal metaplasia and dysplasia. B. Gastric antrum, nodule, biopsy: Gastric antral mucosa with reactive changes and minimal chronic inactive gastritis; negative for H pylori, intestinal metaplasia and dysplasia. C. Gastric polyp, biopsy: Fundic gland polyp with ectatic vessels and minimal chronic inactive inflammation; negative for H pylori, intestinal metaplasia and dysplasia
[2023-05-05 12:44] VITALS: BP 110/70; PULSE 77; RESP 16; TEMP 36.7; O2SAT 100
[2023-05-05 13:11] VITALS: BP 120/72; PULSE 68; RESP 17; TEMP 36.7; O2SAT 100
== END 2023-05-05 13:40 | disposition home or self-care (01) ==
PROVIDERS: Nurse Practitioner; Visit Provider Internal Medicine Gastroenterology
PROC: (CPT 43239; principal; 2023-05-05 11:20)
DX: K31.7 Polyp of stomach and duodenum (principal); K29.70 Gastritis, unspecified, without bleeding; K31.89 Other diseases of stomach and duodenum; K44.9 Diaphragmatic hernia without obstruction or gangrene; K21.00 Gastro-esophageal reflux disease with esophagitis, without bleeding; Z12.11 Encounter for screening for malignant neoplasm of colon; K57.30 Diverticulosis of large intestine without perforation or abscess without bleeding; K56.2 Volvulus; R10.13 Epigastric pain; K58.9 Irritable bowel syndrome, unspecified; E78.5 Hyperlipidemia, unspecified; E55.9 Vitamin D deficiency, unspecified
CPT/HCPCS: 43239; 45378; 81025; 88305; 88342; J2250; J2704

== ENCOUNTER → 2023-05-05 09:23 | Outpatient (BNV) | payer OTHER, SELFPAY | PROVIDERS: Visit Provider Internal Medicine Gastroenterology | DX: Z12.11 Encounter for screening for malignant neoplasm of colon (principal); K57.90 Diverticulosis of intestine, part unspecified, without perforation or abscess without bleeding; K44.9 Diaphragmatic hernia without obstruction or gangrene; K22.81 Esophageal polyp | CPT/HCPCS: 43239; 45378 ==

== ENCOUNTER 2023-05-17 15:20 | Outpatient (AMB) | payer OTHER, SELFPAY ==
[2023-05-17 15:21] VITALS: BP 120/76; BMI 31.5
--- NOTE | 2023-05-17 15:21 | MHC.OFFVIS ---
Intake Vital Signs 05/17/23 15:21 Height 5 ft 8 in Weight 207 lb BMI 31.5 BP 120/76 Intake Visit Reasons: Ultrasound Results/?EMB Application Security Specialist: Application Security Specialist Present (Karen) Allergies muscle relaxer Adverse Reaction (Mild, Uncoded 05/17/23 15:21) hives Is last menstrual period known: Yes Last menstrual period: 05/02/23 HPI HPI Comments History of Present Illness Details Patient is here today for her test results of her US, due to AUB and EMB is planned. Patient reports being sick with an upper respiratory infection since . She reports tested negative for COVID. She plans to see urgent care tomorrow or her primary care for further evaluation. Hgb. 04/2022, 13.2. [facility] Medical History (Updated 05/17/23 @ 16:31 by Saniya Snow CNM) BRCA negative Impaired fasting glucose Colon cancer screening Vitamin D deficiency Dyslipidemia Depression Chronic GERD Gastric ulcer Family history of ovarian cancer Surgical History History of esophagogastroduodenoscopy (EGD) History of repair of anterior cruciate ligament of right knee Family History Mother Ovarian cancer Father Bladder cancer Alzheimer disease HTN (hypertension) Maternal Aunt Endometrium cancer Diabetes HTN (hypertension) Family/Other Breast cancer Paternal Uncle Heart attack Paternal Uncle Lung cancer Paternal Grandfather Stroke Maternal Grandfather Parkinsons disease Paternal Grandmother Diabetes Social History (Updated 04/04/23 @ 09:04 by Saniya Snow CNM) Housing: House Are you a primary senior care provider to a significant other at home: No Alcohol intake: current Alcohol intake frequency: 0-2 drinks per day Alcohol type: wine Patient Tobacco Use Status: Never used Tobacco e-Cigarette/Vaping Use: Never Used service: No Current occupational status: employed Sexual orientation: Lesbian/Granados/Homosexual Gender identity: Female Cognitive needs: No Hearing needs: No Vision needs: No Female Reproductive History Menstrual Age of Menarche: 15 Date of last menstrual period: 05/02/23 Review of Systems Const All systems reviewed & are unremarkable except as noted in HPI and below Physical Exam Vital Signs: Last Vital Signs BP 120/76 05/17/23 15:21 BMI result Body Mass Index 31.5 Const General: cooperative, healthy appearing and no acute distress Orientation/consciousness: patient oriented x3 GI Inspection: Yes normal to inspection Palpation (GI): Soft to palpation and Other GI palpation findings present (Nontender) Rectal Exam - Female: visual inspection normal Other: Narrow vaginal opening General: Yes bladder normal to palpation External Female Exam: normal appearance of the urethra Speculum Exam - Vagina: normal appearance of the vagina (narrow), normal palpation and normal vaginal discharge Speculum Exam - Cervix: normal appearance of the cervix and normal palpation Bimanual exam- vagina & uterus: normal bimanual exam, normal palpation, uterine size normal, bladder normal to palpation, normal palpation, uterine shape normal and non-tender Bimanual Exam- Adnexa, other: normal adnexae Neuro General: patient oriented x3 Office Procedures Endometrial Biopsy Details: The patient is here today for an endometrial biopsy for AUB to rule out any pathology including atypical, hyperplasia or cancer cells of the uterus. She was counseled regarding anticipatory guidance for the procedure including the risks for pain, infection, bleeding, perforation, potential injury to the tissues may include the cervix, uterus, tubes, bladder and bowels. These injuries may include further treatment and evaluation including surgery, blood transfusions, antibiotics, hospitalizations and anesthesia. Permanent injury and scarring can occur. She was consented for the procedure, and the consent forms were signed. She is agreeable to have the procedure today. All questions were answered. Endometrial Biopsy Procedure: The patient was placed in the dorsal lithotomy position and a sterile speculum inserted. Using aseptic technique for the procedure. The cervix was cleansed with Betadine x 3 swabs. A single toothed tenaculum was placed on the cervix for stabilization, the pipele did not pass into the os, limitations with cervical positioning, visualization and patient could no longer tolerate procedure. Minimal bleeding was observed. The patient tolerate the procedure well and was in good condition when leaving the department. [id number] Biopsy Results AMB Test Urine AMB Test Urine Negative Last Edit by NAHUN Joy on 05/17/23 15:43 Results Reviewed Results Reviewed: [address] [address] Ultrasound Report Signed Patient: Etelvina Terry MR#: [id number] : 1975 Acct:[id number] Age/Sex: 47 / F ADM Date: 04/21/23 Loc: HO.US Attending Dr: Saniya Snow CNM Ordering Physician: Saniya Snow CNM Date of Service: 04/21/23 Procedure(s): US pelvic and transvaginal Accession Number(s): [id number] cc: Maria Del Rosario Bray MD; Saniya Snow CNM~ EXAMINATION: US PELVIS CLINICAL INFORMATION: Vaginal bleeding COMPARISON: 12/08/2020 TECHNIQUE: Ultrasound of the pelvis is performed using both transabdominal and transvaginal transducers along with Doppler. Transvaginal imaging is performed due to inadequate visualization transabdominally. FINDINGS: LMP 04/05/2023 Uterus: The uterus is anteverted and measures 8.8 x 3.8 x 4.8 cm. The double wall endometrial thickness is 1.3 mm. The uterus is smooth in contour and has normal myometrial echogenicity. There is single 1.5 x 1.0 x 1.3 cm uterine fibroid in the right side of myometrium. Adnexa: Both ovaries are visualized. There is normal color flow to the adnexa. There is no ovarian torsion. There is no pelvic ascites or fluid collection. Right ovary measures 5.7 x 3.7 x 2.56 cm. With a volume of 27.6 mL. There is simple 3.0 x 2.8 x 2.5 cm cyst, complex 2.9 x 2.3 x 2.4 cm. There is normal vascular flow in right ovary. Left ovary measures 2.9 x 1.8 x 1.4 cm. With a volume of 3.7 cm There are nabothian cysts present there is prominent cervical canal US/US pelvic and transvaginal IMPRESSION: Cysts in the right ovary. Left ovary unremarkable. Single uterine fibroid. Dictated By: David Mckenzie MD Assessment & Plan Assessment & Plan (1) Encounter to discuss test results: Code(s): Z71.2 - Person consulting for explanation of examination or test findings Plan: Ultrasound results reviewed regarding findings of complex ovarian cyst and fibroid. All of her questions and concerns were addressed to the best of my ability and shared decision making. She is agreeable to the plan of care. (2) Complex ovarian cyst: Code(s): N83.299 - Other ovarian cyst, unspecified side Plan: Counseled regarding findings of: Complex ovarian cyst, which often is benign, and resolves on their own overtime. Some develop into premalignant or malignant tumors. Further monitoring and evaluation is recommended with US, or possible CT, or MRI study. If persists, or is indicated (Ca-125, Carbohydrate Antigen 19-9, & Carcinoembryonic Antigen) labs will be ordered and referral to [facility] or general gynecology for MD care if indicated for possible surgical consult. Follow up in person for test results. (3) Abnormal uterine bleeding (AUB): Code(s): N93.9 - Abnormal uterine and vaginal bleeding, unspecified Plan: Attempted a endometrial biopsy unable to be completed today. Refer for MD care for further evaluation and treatment plan. Endometrial Biopsy Post Procedure Care: Nothing in the vagina including: tampons, douching or intimacy until all the bleeding has subsided. There may be some post procedure bleeding for several days, this bleeding is usually light and may turn to a light brown or pink color. Mild cramps may occurs. Nothing in the vaginal including: tampons, douching, or intimacy until all the bleeding has subsided. You may take an over the counter mild analgesic such as Tylenol or Advil (if no allergies) per the manufactures recommendation on dosing, frequency, and follow the directions completely. Call the office if any: fever (over 100.4), flu like symptoms, abdominal pain (worse than cramping), foul smelling, infected appearing vaginal discharge, or heavy bleeding. You will be scheduled for a follow up visit for results, either in person or on the phone when the results are completed in a few weeks. (4) Fibroid: Code(s): D21.9 - Benign neoplasm of connective and other soft tissue, unspecified Plan: Counseled re: Leiomyoma: common pelvic neoplasm. Differential diagnosis-may include leiomyosarcoma which is a rare uterine sarcoma 3-7/100,000, difficult to distinguish from fibroids on ultrasound from uterine sarcoma's. Unlikely any single test will have a highly positive predictive value. Hysterectomy is not recommended for sole purpose of excluding malignant neoplasm. Report any PMB/AUB. Pelvic pressure, bloating, or pain. Consult for surgical exploration verses expectant management offered. Expectant management follow up in 6-12 months, then yearly for stability. Referral to MD if indicated for level of care. Orders: Orders US pelvic and transvaginal 6 Weeks D21.9 - Benign neoplasm of connective and other soft tissue, unspecified, N83.299 - Other ovarian cyst, unspecified side AMB HCG Urine Test Today Z32.02 - Encounter for test, result negative Coding Level of Care Code Est Pt Level 3 (66846) Diagnoses Encounter to discuss test results Z71.2 Complex ovarian cyst N83.299 Abnormal uterine bleeding (AUB) N93.9 Fibroid D21.9 CPT Codes Endometrial Biopsy - CPT: 67440-[id number] Biopsy ([id number]) Comment Failed EMB, bill LOS only
== END 2023-05-17 16:09 ==
LOC: HO.HWS 15:20
PROVIDERS: PCP Internal Medicine; Visit Provider Advanced Practice Midwife
DX: N83.291 Other ovarian cyst, right side (principal); N93.9 Abnormal uterine and vaginal bleeding, unspecified; D25.9 Leiomyoma of uterus, unspecified; Z32.02 Encounter for pregnancy test, result negative
CPT/HCPCS: 58100; 99213

== ENCOUNTER → 2023-05-17 15:20 | Outpatient (BNVA) | payer OTHER, SELFPAY | PROVIDERS: PCP Internal Medicine; Visit Provider Advanced Practice Midwife | DX: N83.299 Other ovarian cyst, unspecified side (principal); N93.9 Abnormal uterine and vaginal bleeding, unspecified; D21.9 Benign neoplasm of connective and other soft tissue, unspecified | CPT/HCPCS: 58100; 81025 ==

== ENCOUNTER 2023-05-22 09:04 | Outpatient (AMB) | payer OTHER, SELFPAY ==
--- NOTE | 2023-05-22 09:10 | MHC.OFFVIS ---
Intake Vital Signs 05/22/23 09:11 Height 5 ft 8 in Weight 209 lb BMI 31.8 BP 111/67 Blood Pressure Location Rt brachial Position Sitting Pulse 83 Intake Visit Reasons: S/P double; Dr Schneider Intake Note: Patient presents to in office visit today in post op follow up s/p EGD and colonoscopy. CC: Patient underwent EGD and colonoscopy on 05/05/[address] Schneider. She reports doing well and denies having any concerns today. Allergies muscle relaxer Adverse Reaction (Mild, Uncoded 05/17/23 15:21) hives HPI S/P double; Dr Schneider HPI Details LAST VISIT Colon cancer screening Patient denies any cardiac or respiratory symptoms.? However patient does report occasional epigastric discomfort postprandially, occasional dyspepsia without dysphagia or odynophagia. Denies any issues with anesthesia in the past.? Denies any history of sleep apnea.? No history infectious diseases in the past or present.? Not on any anticoagulation therapy.? No family or personal history of colon cancer or polyps.? Patient denies melena, hematochezia, unintentional weight loss or ribbon like stools.? Discussed at length the pre-procedure,? prep, diet & medications as well as what to expect prior, during and after the procedure.?? Stressed the importance of good bowel prep. ?Recommended the use of Vaseline or Calmoseptine OTC & baby wipes with bowel movements to promote comfort.? ?Patient verbalizes understanding and agrees to plan of care.? She was given the opportunity to ask questions and all questions answered.? We will see her after the procedure.? Chronic GERD Patient will start taking pantoprazole in the morning half an hour before breakfast. Avoid dietary triggers and late night snacking. Importance of staying upright for minimal 3 hours after meals discussed with patient. Patient will go for upper endoscopy to re-evaluate. Patient has a history of ulcers in the past Plan Medications New pantoprazole take one tablet half an hour before breakfast 40 mg PO DAILY 30 tabs 2RF K21.9 - Gastro-esophageal reflux disease without esophagitis polyethylene glycol 3350 (Miralax) As directed by gastroenterology department at [facility] 238 grams PO ONCE 238 grams 0RF Z12.11 - Encounter for screening for malignant neoplasm of colon UPPER ENDOSCOPY AND COLONOSCOPY: Findings: Larynx: Normal Esophagus: GE junction at 35 cms, small hiatal hernia 35 to 37 cms. No esophagitis or Mccormick's. Stomach: Two 3-4 mm benign appearing polyps in the gastric body - biopsied. A 10 mm benign appearing nodule in the pre-pyloric area - biopsied. Mild gastric erythema. Biopsies were obtained. Grade 2 flap valve on retroflexed examination of the cardia. Duodenum: Normal bulb and descending duodenum Intervention: Biopsies as noted above Findings: Terminal Ileum: Not evaluated Cecum: Normal Ascending Colon: Normal Transverse Colon: Normal Descending Colon: Normal Sigmoid Colon: Moderate diverticulosis Rectum: Normal Ano-rectum: Normal Colon preparation: Good after some irrigation Impression and Post Procedure Diagnosis: Endoscopy Findings: ESOPHAGUS: Small hiatal hernia 35 to 37 cms. No esophagitis or Mccormick's. STOMACH: Two 3-4 mm benign appearing polyps in the gastric body - biopsied. A 10 mm benign appearing nodule in the pre-pyloric area - biopsied. Mild gastric erythema. Biopsies were obtained. Colonoscopy Findings: No polyps were detected Moderate diverticulosis seen in the sigmoid colon Plan: Repeat Colonoscopy in 10 years (adult colonoscope for future colonoscopies). Above findings were reviewed with the patient and hiatal hernia, gastric polyps and diverticulosis handouts were given in the discharge area BIOPSIES SHOWED: A. Gastric antrum, biopsy: Gastric antral mucosa with reactive changes and minimal chronic gastritis with rare neutrophils; negative for H pylori, intestinal metaplasia and dysplasia. B. Gastric antrum, nodule, biopsy: Gastric antral mucosa with reactive changes and minimal chronic inactive gastritis; negative for H pylori, intestinal metaplasia and dysplasia. C. Gastric polyp, biopsy: Fundic gland polyp with ectatic vessels and minimal chronic inactive inflammation; negative for H pylori, intestinal metaplasia and dysplasia TODAY'S VISIT Patient is here today for follow-up she discuss upper endoscopy and colonoscopy results. Patient denies any ill effects from the prep, anesthesia or procedure itself. Patient denies any GI concerning symptoms currently. Patient was found to have no polyps, moderate diverticulosis in sigmoid colon. Gastric polyps and nodule, inactive gastritis, no H pylori, esophagitis, Mccormick's. Patient reports that pantoprazole works well for her. Patient reports that she is taking it every morning. Denies any dyspepsia, dysphagia or odynophagia [facility] Medical History (Updated 05/22/23 @ 09:47 by Deborah Leonardo [facility]) Diverticulosis BRCA negative Impaired fasting glucose Colon cancer screening Vitamin D deficiency Dyslipidemia Depression Chronic GERD Gastric ulcer Family history of ovarian cancer Surgical History H/O colonoscopy History of esophagogastroduodenoscopy (EGD) History of repair of anterior cruciate ligament of right knee Family History Mother Ovarian cancer Father Bladder cancer Alzheimer disease HTN (hypertension) Maternal Aunt Endometrium cancer Diabetes HTN (hypertension) Family/Other Breast cancer Paternal Uncle Heart attack Paternal Uncle Lung cancer Paternal Grandfather Stroke Maternal Grandfather Parkinsons disease Paternal Grandmother Diabetes Social History Housing: House Are you a primary health care / medical job titles to a significant other at home: No Alcohol intake: current Alcohol intake frequency: 0-2 drinks per day Alcohol type: wine Patient Tobacco Use Status: Never used Tobacco e-Cigarette/Vaping Use: Never Used service: No Current occupational status: employed Sexual orientation: Lesbian/Granados/Homosexual Gender identity: Female Cognitive needs: No Hearing needs: No Vision needs: No Female Reproductive History Menstrual Age of Menarche: 15 Review of Systems Const Denies weight gain and Denies weight loss ENT Reports no additional complaints, Denies dysphagia and Denies odynophagia Card Reports no additional complaints Resp Reports no additional complaints GI Denies abdominal pain, Denies belching, Denies melena, Denies bloating, Denies change in bowel habits, Denies dysphagia, Denies excessive flatus, Denies dyspepsia, Denies heartburn, Denies diarrhea, Denies loose stools, Denies nausea, Denies odynophagia and Denies vomiting Reports no additional complaints Musc Reports no additional complaints Neuro Reports no additional complaints Psych Reports no additional complaints Endo Reports no additional complaints Physical Exam Vital Signs: Last Vital Signs Pulse 83 05/22/23 09:11 BP 111/67 05/22/23 09:11 BMI result Body Mass Index 31.8 Const General: healthy appearing, no acute distress and well developed Nutritional Appearance: obese Orientation/consciousness: patient oriented x3 HEENT Head: Yes normal to inspection, Yes normocephalic and Yes atraumatic Face and sinus: Yes normal facial exam Mouth: Normal oral and palatal mucosa present Throat: Yes posterior oropharynx normal, Yes tonsils normal and Yes uvula midline Eyes General: appearance normal, both eyes and all related structures Neck Neck: Yes normal visual inspection, Yes full ROM and Yes trachea midline Thyroid: Thyroid normal Resp Effort & Inspection: normal respiratory effort, able to speak in complete sentences, no tracheal deviation and symmetric chest movement Auscultation: clear to auscultation bilaterally Cardio Rate: regular rate Heart sounds: S1 normal heart sound present and S2 normal heart sound present GI Inspection: Yes normal to inspection, No distended and Yes obesity Palpation (GI): Soft to palpation, not firm, nontender and No hepatosplenomegaly present Auscultation: normal bowel sounds General: Yes no CVA tenderness Back/Spine/Pelvis Back: no CVA tenderness Skin General skin exam: elasticity normal, turgor normal and dry skin Neuro General: patient oriented x3 Psych Appearance: grossly normal Mental Status: mental status grossly normal Affect: normal affect Assessment & Plan Assessment & Plan (1) IBS (irritable bowel syndrome): Code(s): K58.9 - Irritable bowel syndrome without diarrhea Qualifiers: Irritable bowel syndrome type: with constipation Qualified Code(s): K58.1 - Irritable bowel syndrome with constipation (2) Chronic GERD: Code(s): K21.9 - Gastro-esophageal reflux disease without esophagitis (3) Diverticulosis: Code(s): K57.90 - Diverticulosis of intestine, part unspecified, without perforation or abscess without bleeding Plan Continue pantoprazole every morning half an hour before breakfast. Patient was encouraged to avoid dietary triggers and late night snacking. Staying upright for minimum 3 hours after meals discussed with patient. Colonoscopy showed no polyps. Moderate diverticulosis in sigmoid colon. Discussed with patient high-fiber diet. List of food high in fiber given to patient. Patient will continue MiraLax. I will see patient in 1 year, sooner on as needed basis. Patient is agreeable to this plan and verbalizes understanding of instructions. She was given the opportunity to ask questions and all questions answered. Thank you for allowing me to participate in her care Coding Level of Care Code Est Pt Level 3 (28388) Diagnoses Irritable bowel syndrome with constipation K58.1 Irritable bowel syndrome type: with constipation Chronic GERD K21.9 Diverticulosis K57.90 Time Spent (min) 25 Comment 15 minutes spent with patient and additional 10 minutes spent reviewing her records
[2023-05-22 09:11] VITALS: BP 111/67; PULSE 83; BMI 31.8
== END 2023-05-22 10:04 | disposition home or self-care (01) ==
PROVIDERS: PCP Internal Medicine; Visit Provider Nurse Practitioner Family
DX: K58.1 Irritable bowel syndrome with constipation (principal); K21.9 Gastro-esophageal reflux disease without esophagitis; K57.90 Diverticulosis of intestine, part unspecified, without perforation or abscess without bleeding
CPT/HCPCS: 99213

== ENCOUNTER 2023-05-22 09:41 | Outpatient (REF) | payer OTHER, SELFPAY | END 2023-05-22 09:42 | disposition home or self-care (01) | LOC: HO.MAMMO 09:41 | PROVIDERS: PCP Internal Medicine; Visit Provider Advanced Practice Midwife | DX: Z12.31 Encounter for screening mammogram for malignant neoplasm of breast (principal) | CPT/HCPCS: 77063; 77067 ==

== ENCOUNTER → 2023-05-22 09:45 | Outpatient (BNV) | payer OTHER, SELFPAY | PROVIDERS: PCP Internal Medicine; Visit Provider Radiology Diagnostic Radiology | DX: Z12.31 Encounter for screening mammogram for malignant neoplasm of breast (principal) | CPT/HCPCS: 77063; 77067 ==

== ENCOUNTER 2023-06-28 13:01 | Outpatient (REF) | payer OTHER, SELFPAY ==
--- NOTE | ~2023-06-28 | US_ITS ---
EXAMINATION: US PELVIS CLINICAL INFORMATION: Other ovarian cysts, unspecified side LMP: One month ago COMPARISON: Pelvic ultrasound 04/21/2023, 01/28/2022 TECHNIQUE: Ultrasound of the pelvis is performed using both transabdominal and transvaginal transducers along with Doppler. Transvaginal imaging is performed due to inadequate visualization transabdominally. FINDINGS: Uterus: The uterus is anteverted and measures 9.7 x 3.7 x 3.9 cm. 1.2 x 1.0 x 1.1 cm fibroid is seen in the right side of the myometrium. The endometrial thickness is 1.2 cm. Echogenic areas seen within the endometrium, measures 0.9 x 0.5 x 1.1 cm,? Endometrial polyp. Adnexa: Right ovary measures 3.7 x 3.3 x 3.5 cm. Volume 22.4 mL. There is a complex 2.9 x 2.2 x 2.8 cm right ovarian cyst with multiple internal echoes, similar to the prior study of 04/24/2023. There is a 2.4 x 2.8 x 2.6 cm simple right paraovarian cyst, previously measured 3.0 x 2.8 x 2.5 cm. Difference in size is likely technical in origin. Left ovary is normal in appearance and measures 1.8 x 1.4 x 1.8 cm. Volume 2.4 mL. US/US pelvic and transvaginal IMPRESSION: 1. 1.2 cm fibroid in the right side of the myometrium. 2. Question of endometrial polyp. 3. 2.9 cm complex right ovarian cyst. 4. 2.8 cm simple right paraovarian cyst. 5. Normal left ovary.
== END 2023-06-28 13:02 | disposition home or self-care (01) ==
LOC: HO.US 13:01
PROVIDERS: PCP Internal Medicine; Visit Provider Advanced Practice Midwife
DX: N83.299 Other ovarian cyst, unspecified side (principal); D21.9 Benign neoplasm of connective and other soft tissue, unspecified
CPT/HCPCS: 76830; 76856

== ENCOUNTER 2023-07-10 13:59 | Outpatient (AMB) | payer OTHER, SELFPAY ==
[2023-07-10 14:03] VITALS: BP 122/70; BMI 31.8
--- NOTE | 2023-07-10 14:03 | MHC.OFFVIS ---
Intake Vital Signs 07/10/23 14:03 Height 5 ft 8 in Weight 209 lb BMI 31.8 BP 122/70 Intake Visit Reasons: EMB per Saniya Wallpaper Inspector And Shipper: Wallpaper Inspector And Shipper Present (Nikki) Allergies muscle relaxer Adverse Reaction (Mild, Uncoded 07/10/23 14:06) hives Is last menstrual period known: Yes Last menstrual period: 07/04/23 Post menopausal: No Patient : No Do you need a note to return to daycare/school/sports/work: Yes (for surgery on monday) HPI HPI Comments History of Present Illness Details Presenting for referred from Saniya Snow for ultrasound follow-up possible endometrial biopsy. Pelvic ultrasound showed the following: Uterus: The uterus is anteverted and measures 9.7 x 3.7 x 3.9 cm. 1.2 x 1.0 x 1.1 cm fibroid is seen in the right side of the myometrium. The endometrial thickness is 1.2 cm. Echogenic areas seen within the endometrium, measures 0.9 x 0.5 x 1.1 cm,? Endometrial polyp. Adnexa: Right ovary measures 3.7 x 3.3 x 3.5 cm. Volume 22.4 mL. There is a complex 2.9 x 2.2 x 2.8 cm right ovarian cyst with multiple internal echoes, similar to the prior study of 04/24/2023. There is a 2.4 x 2.8 x 2.6 cm simple right paraovarian cyst, previously measured 3.0 x 2.8 x 2.5 cm. Difference in size is likely technical in origin. Left ovary is normal in appearance and measures 1.8 x 1.4 x 1.8 cm. Volume 2.4 mL. [facility] Medical History Diverticulosis BRCA negative Impaired fasting glucose Colon cancer screening Vitamin D deficiency Dyslipidemia Depression Chronic GERD Gastric ulcer Family history of ovarian cancer Surgical History H/O colonoscopy History of esophagogastroduodenoscopy (EGD) History of repair of anterior cruciate ligament of right knee Family History Mother Ovarian cancer Father Bladder cancer Alzheimer disease HTN (hypertension) Maternal Aunt Endometrium cancer Diabetes HTN (hypertension) Family/Other Breast cancer Paternal Uncle Heart attack Paternal Uncle Lung cancer Paternal Grandfather Stroke Maternal Grandfather Parkinsons disease Paternal Grandmother Diabetes Social History Housing: House Are you a primary career professional to a significant other at home: No Alcohol intake: current Alcohol intake frequency: 0-2 drinks per day Alcohol type: wine Patient Tobacco Use Status: Never used Tobacco e-Cigarette/Vaping Use: Never Used service: No Current occupational status: employed Sexual orientation: Lesbian/Granados/Homosexual Gender identity: Female Cognitive needs: No Hearing needs: No Vision needs: No Female Reproductive History Menstrual Age of Menarche: 15 Date of last menstrual period: 07/04/23 Total pregnancies: 2 Full term: 2 Review of Systems Card Reports as per HPI and Reports no additional complaints Resp Reports as per HPI and Reports no additional complaints GI Reports as per HPI and Reports no additional complaints Reports as per HPI Physical Exam Vital Signs: Last Vital Signs BP 122/70 07/10/23 14:03 BMI result Body Mass Index 31.8 Const General: cooperative, healthy appearing and comfortable Resp Effort & Inspection: normal respiratory effort Auscultation: clear to auscultation bilaterally Percussion: percussion normal Cardio Palpation: normal PMI Rate: regular rate Rhythm: regular rhythm Heart sounds: no murmurs and no rubs Peripheral pulses: Peripheral pulses 2+ throughout GI Inspection: Yes normal to inspection Palpation (GI): Soft to palpation, nontender, no guarding, not rigid and No hepatosplenomegaly present Percussion: Yes normal to percussion Auscultation: normal bowel sounds Rectal Exam - Female: deferred Results AMB Test Urine AMB Test Urine Negative Last Edit by NAHUN Joy on 07/10/23 14:09 Results Reviewed Results Reviewed: Laboratory Last Values Tst Clinic Negative 07/10/23 14:09 Assessment & Plan Assessment & Plan (1) Abnormal uterine bleeding: Comment: Endometrial polyp on ultrasound Code(s): N93.9 - Abnormal uterine and vaginal bleeding, unspecified Plan: Discussed with the patient the results of ultrasound showing endometrial polyp, recommended hysteroscopy D&C possible polypectomy/myomectomy. Discussed with the patient the procedure , all benefits and risks including but not limited to inability to complete the procedure , insufficient endometrial tissue for a complete evaluation of the endometrial cavity , bleeding, infection, possible need for blood transfusion with all its risk ( HIV,syphilis, Hepatitis, anaphylaxis shock, others..), injury to bladder, rectum, possible need for laparoscopy/laparotomy or hysterectomy. The patient verbalized understanding and signed the consent. Instructions given the patient to schedule a 2 week postoperative appointment (2) Uterine myoma: Code(s): D25.9 - Leiomyoma of uterus, unspecified Plan: Discussed with the patient the findings on pelvic ultrasound & the risk of myosarcoma; discussed with the patient the options of treatment including expectant management versus hysterectomy; the pros and cons, risks benefits of each approach were discussed with the patient including the fact that in cases of myosarcoma, surgical treatment can lead to early diagnosis and positively affects the prognosis; after further discussion, the patient decided to proceed with expectant management. Will repeat pelvic ultrasound periodically. Instructions given to patient to call in case any of the following occurs: pressure symptoms, abnormal uterine bleeding, pelvic pain; and to schedule a future office follow-up appointment for reassessment and to order a repeat ultrasound . All questions answered, the patient verbalized understanding and agreed with the plan . (3) Complex ovarian cyst: Comment: Maternal history of ovarian cancer at 46 Code(s): N83.299 - Other ovarian cyst, unspecified side Plan: Discussed with the patient the complex ovarian cyst by ultrasound. Discussed with the patient the Ultrasound findings, the main limitation of transvaginal ultrasonography alone as a diagnostic tool to distinguish benign from malignant masses relates to its lack of specificity and low positive predictive value for cancer. The differential diagnosis discussed with the patient includes the following but not limited to: benign and malignant gynecological and non-gynecological causes. Laboratory evaluation include UPT and GC/CT , serum tumor marker CA 125, CEA and CA 19-9 . Will order pelvic MRI, and follow-up in 2 weeks for further management Orders: Orders AMB HCG Urine Test Today Z32.02 - Encounter for test, result negative Coding Level of Care Code Est Pt Level 3 (48866) Diagnoses Abnormal uterine bleeding N93.9 Uterine myoma D25.9 Complex ovarian cyst N83.299
== END 2023-07-10 14:56 | disposition home or self-care (01) ==
LOC: HO.HWS 13:59
PROVIDERS: PCP Internal Medicine; Visit Provider Obstetrics & Gynecology
DX: N93.9 Abnormal uterine and vaginal bleeding, unspecified (principal); D25.9 Leiomyoma of uterus, unspecified; N83.299 Other ovarian cyst, unspecified side; Z32.02 Encounter for pregnancy test, result negative
CPT/HCPCS: 99213

== ENCOUNTER → 2023-07-10 13:59 | Outpatient (BNVA) | payer OTHER, SELFPAY | PROVIDERS: PCP Internal Medicine; Visit Provider Obstetrics & Gynecology | DX: N93.9 Abnormal uterine and vaginal bleeding, unspecified (principal); D25.9 Leiomyoma of uterus, unspecified; N83.299 Other ovarian cyst, unspecified side | CPT/HCPCS: 81025 ==

== ENCOUNTER 2023-07-11 13:30 | Outpatient (REF) | payer OTHER, SELFPAY ==
[2023-07-11 15:24] LABS: Carcinoembryonic Antigen < 1.73 ng/mL
[2023-07-14 10:03] LABS: CA-125 19 U/mL (<35)
[2023-07-18 08:49] LABS: Carbohydrate Antigen 19-9 46 U/mL (<34)
== END 2023-07-11 13:31 | disposition home or self-care (01) ==
LOC: HO.LAB 13:30
PROVIDERS: PCP Internal Medicine; Visit Provider Obstetrics & Gynecology
DX: N83.299 Other ovarian cyst, unspecified side (principal)
CPT/HCPCS: 36415; 82378; 86301; 86304

== ENCOUNTER 2023-07-21 09:32 | Day surgery (SDC) | payer OTHER, SELFPAY ==
[2023-07-19 09:01] VITALS: BMI 31.8
--- NOTE | 2023-07-20 10:36 | HO.ANESPROP2 ---
Documented by User: Radha Gaffney NP 07/20/23 10:38 HPI - Anesthesia Eval Consult details Narrative: 47yo F for Dilation and Curettage Hysteroscopy possible myometomy/polypectomy s/p EGD and Dovray 04/2023 with TIVA PMFSH Active Problems Active Problems: All Active Problems (Updated 07/10/23 @ 14:47 by Rosalio Muñoz MD) Complex ovarian cyst (Acute) Uterine myoma (Acute) Abnormal uterine bleeding (Acute) Diverticulosis (Acute) Impaired fasting glucose (Acute) Colon cancer screening (Acute) Encounter to discuss test results (Acute) Family history of malignant neoplasm of ovary in first degree relative (Acute) Cervical cancer screening (Acute) Well woman exam with routine gynecological exam (Acute) Pelvic pain (Acute) Vitamin D deficiency (Acute) Dyslipidemia (Acute) IBS (irritable bowel syndrome) (Acute) Acute eczema (Acute) History of repair of anterior cruciate ligament of right knee (Acute) Depression (Acute) Chronic GERD (Acute) Family history of ovarian cancer (Acute) Past Medical History Medical History Diverticulosis BRCA negative Impaired fasting glucose Colon cancer screening Vitamin D deficiency Dyslipidemia Depression Chronic GERD Gastric ulcer Family history of ovarian cancer Family History Family History Mother Ovarian cancer Father Bladder cancer Alzheimer disease HTN (hypertension) Maternal Aunt Endometrium cancer Diabetes HTN (hypertension) Family/Other Breast cancer Paternal Uncle Heart attack Paternal Uncle Lung cancer Paternal Grandfather Stroke Maternal Grandfather Parkinsons disease Paternal Grandmother Diabetes Family history of problems with anesthesia: No Surgical History Surgical History H/O colonoscopy History of esophagogastroduodenoscopy (EGD) History of repair of anterior cruciate ligament of right knee History of Problems with Anesthesia: No Social History Social History Housing: House Are you a primary care management associate to a significant other at home: No Alcohol intake: current Alcohol intake frequency: holidays/special occasions only Alcohol type: wine Patient Tobacco Use Status: Never used Tobacco e-Cigarette/Vaping Use: Never Used Are you DNR?: No Advance Directives: No Advance Directives Information Provided: Yes Nutrition Risks: No Nutritional Risk service: No Current occupational status: employed Sexual orientation: Lesbian/Granados/Homosexual Gender identity: Female Cognitive needs: No Hearing needs: No Vision needs: No Meds Allergies Allergy/AdvReac Type Severity Reaction Status Date / Time muscle relaxer AdvReac Mild hives Uncoded 07/10/23 14:06 Home Medications Medication Instructions Recorded Confirmed Last Taken Type cetirizine 10 mg tablet (Zyrtec) 10 mg PO DAILY 11/03/20 02/10/22 02/16/21 07:00 History Exam Height,Weight and Vital Signs: Height 5 ft 8 in Weight 94.801 kg Assessment and Plan Assessment Anesthesia Assessment: Chart Reviewed Final Anesthetic Review Family History of Problems with Anesthesia: No History of Problems with Anesthesia: No Documented by User: Warner King MD 07/21/23 11:16 PMFSH Past Medical History Medical History Diverticulosis BRCA negative Impaired fasting glucose Colon cancer screening Vitamin D deficiency Dyslipidemia Depression Chronic GERD Gastric ulcer Family history of ovarian cancer Patient : No Family History Family History Mother Ovarian cancer Father Bladder cancer Alzheimer disease HTN (hypertension) Maternal Aunt Endometrium cancer Diabetes HTN (hypertension) Family/Other Breast cancer Paternal Uncle Heart attack Paternal Uncle Lung cancer Paternal Grandfather Stroke Maternal Grandfather Parkinsons disease Paternal Grandmother Diabetes Surgical History Surgical History H/O colonoscopy History of esophagogastroduodenoscopy (EGD) History of repair of anterior cruciate ligament of right knee Social History Social History Housing: House Are you a primary care management associate to a significant other at home: No Alcohol intake: current Alcohol intake frequency: holidays/special occasions only Alcohol type: wine Patient Tobacco Use Status: Never used Tobacco e-Cigarette/Vaping Use: Never Used Are you DNR?: No Advance Directives: No Advance Directives Information Provided: Yes Nutrition Risks: No Nutritional Risk service: No Current occupational status: employed Sexual orientation: Lesbian/Granados/Homosexual Gender identity: Female Cognitive needs: No Hearing needs: No Vision needs: No Meds Allergies Allergy/AdvReac Type Severity Reaction Status Date / Time muscle relaxer AdvReac Mild hives Uncoded 07/10/23 14:06 Home Medications Medication Instructions Recorded Confirmed Last Taken Type cetirizine 10 mg tablet (Zyrtec) 10 mg PO DAILY 11/03/20 02/10/22 02/16/21 07:00 History Exam Airway Mallampati Class: II TM Dist: <=3cm Neck ROM: Full Loose/Missing/Broken Teeth: No Heart: ok Lungs: ok Assessment and Plan Assessment Anesthesia Assessment: Anesthesia Plan Discussed Final Anesthetic Review NPO: Yes ASA Class: II Final Preanesthetic Review: No Changes in Pt Med Stat, Meds/Allgs Chart Reviewed, Consent Obtained/Reviewed and Anes Risks/Benef Reviewed Patient Risk: Low Procedure Risk: Low Anesthetic Plan Anesthetic Plan: GA and Agree w/ Assess. and Plan Disposition: Standard PACU
[2023-07-21 09:38] VITALS: BMI 32.1
[2023-07-21 09:52] VITALS: BP 129/69; PULSE 84; RESP 20; TEMP 36.4; O2SAT 98
[2023-07-21 09:54] LABS: UPreg QC Valid YES; Urine Pregnancy NEGATIVE (NEGATIVE)
[2023-07-21] MEDS: Lactated Ringers 1,000 ML 100 ML IVCONT (09:57)
--- NOTE | 2023-07-21 10:56 | MHC.SHP ---
Pre-Procedural Eval Section A - 24 Hr Update-Section A only Date of Service: 07/21/23 The patient is an INPATIENT: No Changes since office visit: No Cold of Flu in the past 2 weeks, No New Medical Problems, No Changes in Medication and No Patient answered all questions The patient has been examined within 24 hours of the surgical procedure. The History & Physical has been completed within 30 days and I have reviewed it.: Yes Section B - Complete if H&P > 30 days Chief Complaint: Abnormal uterine and vaginal bleeding, unspecified Allergies: Allergies Allergy/AdvReac Type Severity Reaction Status Date / Time muscle relaxer AdvReac Mild hives Uncoded 07/10/23 14:06 Plan Diagnosis/Plan: Unchanged I have reviewed the history and physical and performed a pertinent physical examination on my patient. No changes have occurred unless specified. Time Spent With Patient Time: Total time managing care of this patient today ____ minutes.
--- NOTE | 2023-07-21 12:09 | PM.OP ---
Brief Operative Note Date of Service: 07/21/23 Pre-op diagnosis: AUB, endometrial polyp Post-op diagnosis: same (Endometrial polyp) Procedure: Hysteroscopy D&C, Polypectomy Surgeon: Rosalio Muñoz MD Anesthesia: GLMA Was an [employer] Skills used for this Procedure?: No Estimated blood loss (mL): 0 Pathology: other (Endometrial Scrapping. Polyp) Condition: stable Disposition: PACU
--- NOTE | 2023-07-21 12:10 | P.OP_ITS ---
Operative Note Operative Note Date of Service: 07/21/23 Narrative: Preop Diagnosis: Abnormal uterine bleeding, Endometrial polyp by US Operation: Diagnostic Hysteroscopy, Dilataion & Curettage and polypectomy Post Op Diagnosis: Endometrial Polyp QBL: Minimal Anesthesia: GLMA Surgeon: Rosalio Muñoz MD District Plant Superintendent: None Complication: None Pathology: Endometrial Scrapings, Endometrial polyp Procedure: The patient was put in the dorsal lithotomy position, scrubbed, and draped in the usual manner. A sterile speculum was inserted in the patient's vagina. The anterior lip of the cervix was grasped with a single tooth tenaculum. The cervix was dilated up to 5 mm, then the scope was inserted in the patient's uterus. Inspection revealed endometrial polyp. The Myosure Reach device was used; it was introduced through the operative channel and polypectomy done with no complications. The scope was then taken out from the uterine cavity, sharp curettings was carried on with minimal to moderate amount of tissues retrieved. At the end of the procedure, all instruments were taken out of the patient uterine and vaginal cavity. The single tooth tenaculum was removed and homeostasis was assured using pressure,. The patient tolerated the procedure well and was transferred to the PACU in a stable condition.
[2023-07-21 12:15] VITALS: BP 123/87; PULSE 80; RESP 16; TEMP 36.3; O2SAT 96
[2023-07-21 12:20] VITALS: BP 115/68; PULSE 69; RESP 16; O2SAT 98
[2023-07-21 12:25] VITALS: BP 119/73; PULSE 64; RESP 16; O2SAT 98
[2023-07-21 12:30] VITALS: BP 123/73; PULSE 64; RESP 16; O2SAT 99
[2023-07-21] MEDS: Acetaminophen 325 MG TABLET 650 MG PO (12:34)
[2023-07-21 12:45] VITALS: BP 115/56; PULSE 63; RESP 18; TEMP 36.1; O2SAT 98
== END 2023-07-21 13:20 | disposition home or self-care (01) ==
PROVIDERS: Nurse Practitioner; PCP Internal Medicine; Visit Provider Obstetrics & Gynecology
PROC: 0UDB8ZZ Extraction of Endometrium, Via Natural or Artificial Opening Endoscopic (ICD-10-PCS; CPT 58558; principal; 2023-07-21 11:30)
DX: N93.9 Abnormal uterine and vaginal bleeding, unspecified (principal); N84.0 Polyp of corpus uteri; D25.9 Leiomyoma of uterus, unspecified; N83.291 Other ovarian cyst, right side; R73.01 Impaired fasting glucose; Z88.8 Allergy status to other drugs, medicaments and biological substances; Z80.41 Family history of malignant neoplasm of ovary; Z79.899 Other long term (current) drug therapy
CPT/HCPCS: 58558; 81025; 88305; J2704; J3010

== ENCOUNTER → 2023-07-21 09:32 | Outpatient (BNV) | payer OTHER, SELFPAY | PROVIDERS: PCP Internal Medicine; Visit Provider Obstetrics & Gynecology | DX: N84.0 Polyp of corpus uteri (principal); N93.9 Abnormal uterine and vaginal bleeding, unspecified | CPT/HCPCS: 58558 ==

== ENCOUNTER 2023-08-03 08:14 | Outpatient (AMB) | payer OTHER, SELFPAY ==
--- NOTE | 2023-08-03 08:16 | A.OFFVIS_ITS ---
Intake Vital Signs 08/03/23 08:18 Height 5 ft 8 in Weight 209 lb BMI 31.8 BP 120/72 Intake Visit Reasons: post op Allergies muscle relaxer Adverse Reaction (Mild, Uncoded 07/10/23 14:06) hives HPI HPI Comments History of Present Illness Details The patient is presenting post hysteroscopy D&C no complaints minimal vaginal bleeding no feverishness chills or abdominal pain. The pathology showed the following: A. Endometrium, curettage: Benign dyssynchronous endometrium with focal proliferative glands, focal stromal collapse, and fragments of benign endometrial polyp; no atypia or carci noma. B. Endometrial polyp, resection: Fragments of benign endometrial polyp, mixed benign endometrial/ endocervical polyp, and benign endocervical glandular polyp, and fragments of benign dyssynchronous secretory endometrium with focal stromal collapse; no atypia or carcinoma. The following workup was done.: H&H=13.2/39.4 TSH, GC and chlamydia were negative. Co testing was done was negative. Mammogram was BI-RADS 1 Pelvic ultrasound showed the following: Uterus: The uterus is anteverted and measures 9.7 x 3.7 x 3.9 cm. 1.2 x 1.0 x 1.1 cm fibroid is seen in the right side of the myometrium. The endometrial thickness is 1.2 cm. Echogenic areas seen within the endometrium, measures 0.9 x 0.5 x 1.1 cm,? Endometrial polyp. Adnexa: Right ovary measures 3.7 x 3.3 x 3.5 cm. Volume 22.4 mL. There is a complex 2.9 x 2.2 x 2.8 cm right ovarian cyst with multiple internal echoes, similar to the prior study of 04/24/2023. There is a 2.4 x 2.8 x 2.6 cm simple right paraovarian cyst, previously measured 3.0 x 2.8 x 2.5 cm. Difference in size is likely yoon hnical in origin. Left ovary is normal in appearance and measures 1.8 x 1.4 x 1.8 cm. Volume 2.4 mL. CA 19 -9 is elevated, CEA and CA 125 within normal [facility] Medical History Diverticulosis BRCA negative Impaired fasting glucose Colon cancer screening Vitamin D deficiency Dyslipidemia Depression Chronic GERD Gastric ulcer Family history of ovarian cancer Surgical History H/O colonoscopy History of esophagogastroduodenoscopy (EGD) History of repair of anterior cruciate ligament of right knee Family History Mother Ovarian cancer Father Bladder cancer Alzheimer disease HTN (hypertension) Maternal Aunt Endometrium cancer Diabetes HTN (hypertension) Family/Other Breast cancer Paternal Uncle Heart attack Paternal Uncle Lung cancer Paternal Grandfather Stroke Maternal Grandfather Parkinsons disease Paternal Grandmother Diabetes Social History Housing: House Are you a primary manager care management to a significant other at home: No Alcohol intake: current Alcohol intake frequency: holidays/special occasions only Alcohol type: wine Patient Tobacco Use Status: Never used Tobacco e-Cigarette/Vaping Use: Never Used service: No Current occupational status: employed Sexual orientation: Lesbian/Granados/Homosexual Gender identity: Female Cognitive needs: No Hearing needs: No Vision needs: No Female Reproductive History Menstrual Age of Menarche: 15 Review of Systems Const All systems reviewed & are unremarkable except as noted in HPI and below Reports as per HPI and Reports no additional complaints GI Reports no additional complaints Reports no additional complaints Physical Exam Vital Signs: Last Vital Signs BP 120/72 08/03/23 08:18 BMI result Body Mass Index 31.8 Assessment & Plan Assessment & Plan (1) Complex ovarian cyst: Comment: Maternal history of ovarian cancer at 46 elevated ca 19-9 Code(s): N83.299 - Other ovarian cyst, unspecified side Plan: Will Cancel pelvic MRI, will order LDH, inhibin, alpha fetoprotein and CT scan of abdomen/ pelvis with contrast and refer to metal furniture assembly supervisor Oncology, Dr. Saavedra (2) Abnormal uterine bleeding: Comment: Endometrial polyp status post polypectomy Code(s): N93.9 - Abnormal uterine and vaginal bleeding, unspecified Plan: Discussed with the patient the results of the work up done. All questions answered the patient verbalized understanding. Orders: Orders Inhibin B Today N83.299 - Other ovarian cyst, unspecified side CT abdomen pelvis w IV con Today N83.299 - Other ovarian cyst, unspecified side Lactate Dehydrogenase Today N83.299 - Other ovarian cyst, unspecified side Inhibin A Today N83.299 - Other ovarian cyst, unspecified side Alpha Fetoprotein Today N83.299 - Other ovarian cyst, unspecified side Referrals Gynecologic Oncology Referral N83.299 - Other ovarian cyst, unspecified side Coding Level of Care Code Est Pt Level 3 (78992) Diagnoses Complex ovarian cyst N83.299 Abnormal uterine bleeding N93.9
[2023-08-03 08:18] VITALS: BP 120/72; BMI 31.8
== END 2023-08-03 12:32 | disposition home or self-care (01) ==
LOC: HO.HWS 08:14
PROVIDERS: PCP Internal Medicine; Visit Provider Obstetrics & Gynecology
DX: N83.299 Other ovarian cyst, unspecified side (principal); N93.9 Abnormal uterine and vaginal bleeding, unspecified
CPT/HCPCS: 99213

== ENCOUNTER 2023-08-03 08:14 | Outpatient (REF) | payer OTHER, SELFPAY | END 2023-08-03 08:15 | disposition home or self-care (01) | LOC: HO.LNP 08:14 | PROVIDERS: PCP Internal Medicine; Visit Provider Obstetrics & Gynecology | DX: Z13.89 Encounter for screening for other disorder (principal) ==

== ENCOUNTER 2023-08-04 07:56 | Outpatient (REF) | payer OTHER, SELFPAY ==
[2023-08-04 09:26] LABS: Blood Urea Nitrogen 15 mg/dL (9-16); Estimated Glomerular Filt Rate > 60; Lactate Dehydrogenase 160 U/L (122-220)
[2023-08-09 16:53] LABS: Inhibin B 37 pg/mL
== END 2023-08-04 07:57 | disposition home or self-care (01) ==
LOC: HO.LAB 07:56
PROVIDERS: PCP Internal Medicine; Visit Provider Obstetrics & Gynecology
DX: N83.299 Other ovarian cyst, unspecified side (principal)
CPT/HCPCS: 36415; 82105; 82565; 83520; 83615; 84520; 86336

== ENCOUNTER 2023-08-08 11:42 | Outpatient (AMB) | payer OTHER, SELFPAY ==
--- NOTE | 2023-08-08 11:42 | MHC.OFFVIS ---
Intake Intake Visit Reasons: per Elementary Esl Teacher Required: No Information Interpreted: non-clinical & clinical Allergies muscle relaxer Adverse Reaction (Mild, Uncoded 07/10/23 14:06) hives HPI HPI Comments History of Present Illness Details The patient is scheduled tele health visit to discuss the results of her serology. Alpha fetoprotein and CA 19-9 were elevated. CA 125, LDH and CEA within normal, inhibin a and B are still pending. The patient was referred to chinese medicine practitioner Oncology is scheduled to see Dr. Saavedra on 08/23/2023 at 10:20, CT scan is scheduled for 08/10 [facility] Medical History Diverticulosis BRCA negative Impaired fasting glucose Colon cancer screening Vitamin D deficiency Dyslipidemia Depression Chronic GERD Gastric ulcer Family history of ovarian cancer Surgical History H/O colonoscopy History of esophagogastroduodenoscopy (EGD) History of repair of anterior cruciate ligament of right knee Family History Mother Ovarian cancer Father Bladder cancer Alzheimer disease HTN (hypertension) Maternal Aunt Endometrium cancer Diabetes HTN (hypertension) Family/Other Breast cancer Paternal Uncle Heart attack Paternal Uncle Lung cancer Paternal Grandfather Stroke Maternal Grandfather Parkinsons disease Paternal Grandmother Diabetes Social History Housing: House Are you a primary animal care technician to a significant other at home: No Alcohol intake: current Alcohol intake frequency: holidays/special occasions only Alcohol type: wine Patient Tobacco Use Status: Never used Tobacco e-Cigarette/Vaping Use: Never Used service: No Current occupational status: employed Sexual orientation: Lesbian/Granados/Homosexual Gender identity: Female Cognitive needs: No Hearing needs: No Vision needs: No Female Reproductive History Menstrual Age of Menarche: 15 Review of Systems Const All systems reviewed & are unremarkable except as noted in HPI and below Reports as per HPI and Reports no additional complaints GI Reports no additional complaints Reports no additional complaints Assessment & Plan Assessment & Plan (1) Complex ovarian cyst: Comment: Maternal history of ovarian cancer at 46 Elevated ca 19-9 and alpha-fetoprotein Code(s): N83.299 - Other ovarian cyst, unspecified side Plan: Discussed with the patient the elevated CA 19-9 and alpha fetoprotein, their sensitivity specificity, false-positive and false-negative rate in detecting ovarian tumors. The patient is aware of her appointment with Dr. Saavedra on 08/23/2023 at 10:20, CT scan with oral and IV contrast scheduled on 08/10. All questions answered, the patient verbalized understanding. I spent a total of 20 minutes reviewing the chart, talking to the patient via phone and documenting in the medical record. Telehealth Telehealth Location of provider rendering services: practice address Location of patient: address on file Patient Identification confirmed using: Name, : Yes Telehealth method: voice only Patient verbally consented to treatment: Yes Patient verbally consented to billing insurance company: Yes Patient informed of any privacy concerns related to visit: Yes Coding Level of Care Code Tele Est Pt Level 1 (67785) Diagnoses Complex ovarian cyst N83.299
== END 2023-08-08 13:56 | disposition home or self-care (01) ==
LOC: HO.HWS 11:42
PROVIDERS: PCP Internal Medicine; Visit Provider Obstetrics & Gynecology
DX: N83.299 Other ovarian cyst, unspecified side (principal)
CPT/HCPCS: 99211

== ENCOUNTER → 2023-08-08 11:42 | Outpatient (BNVA) | payer OTHER, SELFPAY | PROVIDERS: PCP Internal Medicine; Visit Provider Obstetrics & Gynecology ==

== ENCOUNTER 2023-08-10 09:30 | Outpatient (REF) | payer OTHER, SELFPAY ==
--- NOTE | ~2023-08-10 | CT_ITS ---
EXAMINATION: CT ABDOMEN AND PELVIS WITH CONTRAST CLINICAL INFORMATION: Cyst COMPARISON: Ultrasound pelvis from 06/28/2023 TECHNIQUE: Multidetector volumetric images were obtained from the superior aspect of the liver through the pubic symphysis following administration 85 mL of Omnipaque 350 intravenous contrast. Sagittal and coronal reformatted images were obtained on the technologist's workstation. Oral contrast: No This CT examination was performed using dose optimization techniques as appropriate, variously including the following: *Automated exposure control *Adjustment of mA and/or kV according to patient size (this includes techniques or standardized protocols for targeted exams where dose is matched to indication/reason for exam; i.e. extremities or head) *Use of iterative reconstruction technique DLP: 784 mGy-cm FINDINGS: LUNG BASES: Bibasilar atelectasis. No pneumothorax. No large pleural effusion. LIVER, GALLBLADDER, AND BILIARY TREE: The liver is normal in size, shape, and attenuation. No focal hepatic lesion or biliary ductal dilatation is present. Layering intraluminal gallbladder calculi without wall thickening or pericholecystic fluid. PANCREAS: Unremarkable. SPLEEN: Unremarkable. ADRENAL GLANDS: Unremarkable. KIDNEYS AND URETERS: The kidneys are normal in size, shape, and attenuation. No hydronephrosis, hydroureter, or calculi seen. No perinephric stranding. BLADDER: Unremarkable. GASTROINTESTINAL TRACT: Small hiatal hernia. A few mildly prominent though nonenlarged loops of small bowel in the left mid abdomen with questionable wall thickening, correlation for symptomatology of enteritis. The small and large bowel are unremarkable. The appendix is unremarkable. ABDOMINAL WALL: Small fat filled umbilical hernia. LYMPH NODES: No enlarged lymph nodes per size criteria. A few mildly prominent though nonenlarged lymph nodes are noted in the left mid abdomen nonspecific though may reflect an element of mesenteric adenitis in the appropriate clinical setting. VASCULAR: Abdominal aorta is nonaneurysmal. Pelvic phleboliths are noted. PELVIC VISCERA: Anteverted uterus with slightly lobular contour suggesting leiomyomatous configuration. Bilateral adnexal/ovarian hypodense foci the largest on the right side measuring 3.9 cm. Findings likely represent a probable benign cyst. Recommend follow-up ultrasonography in 3-6 months. OSSEOUS STRUCTURES: Unremarkable. CT/CT abdomen pelvis w IV con IMPRESSION: 1. A few mildly prominent though nonenlarged loops of small bowel in the left mid abdomen with questionable wall thickening, correlation for symptomatology of enteritis. 2. A few mildly prominent though nonenlarged lymph nodes are noted in the left mid abdomen nonspecific though may reflect an element of mesenteric adenitis in the appropriate clinical setting. 3. Anteverted uterus with slightly lobular contour suggesting leiomyomatous configuration. Bilateral adnexal/ovarian hypodense foci the largest on the right side measuring 3.9 cm. Findings likely represent a probable benign cyst. Recommend follow-up ultrasonography in 3-6 months. 4. Cholelithiasis without acute cholecystitis.
[2023-08-10] MEDS: Barium Sulfate Oral (Mocha) 450 ML ORAL.SUSP 900 ML PO (12:11)
[2023-08-10] MEDS: iohexoL 350 MG/ML 100 ML INFUS..BTL IV (12:12)
== END 2023-08-10 09:31 | disposition home or self-care (01) ==
LOC: HO.CT 09:30
PROVIDERS: PCP Internal Medicine; Visit Provider Obstetrics & Gynecology
DX: N83.299 Other ovarian cyst, unspecified side (principal)
CPT/HCPCS: 74177; Q9967

== ENCOUNTER 2023-10-11 08:26 | Outpatient (AMB) | payer OTHER, SELFPAY ==
[2023-10-11 08:32] VITALS: BP 110/64; PULSE 87; O2SAT 97; BMI 31.2
--- NOTE | 2023-10-11 08:32 | A.OFFPC_ITS ---
Vital Signs 10/11/23 08:32 Height 5 ft 8 in Weight 205 lb BMI 31.2 BP 110/64 Blood Pressure Location Lt brachial Position Sitting Pulse 87 Pulse Source Pulse Oximeter Pulse Oximetry (%) 97 Oxygen Delivery Method Room Air Intake Visit Reasons: Annual PE Intake Note: Pt is here today for her PE:C Is last menstrual period known: Yes Last menstrual period: 09/18/23 Allergies muscle relaxer Adverse Reaction (Mild, Uncoded 10/11/23 08:49) hives Medication List - Last Reconciled 10/11/23 by Maria Del Rosario Bray MD cetirizine (Zyrtec) 10 mg PO DAILY pantoprazole 40 mg PO QAM Tobacco use date assessed: 10/11/23 Dental Screening Dental Screen Date: 10/11/23 Did you have a dental visit in the last 12 months?: Yes Did you have a dental problem in the last 6 months where you did not have access to dental care?: No Was dental information given to patient?: Patient has dentist HPI Annual PE HPI Details 47-year-old lady with history gallstones currently asymptomatic, chronic GERD with small hiatal hernia, uterine leiomyoma and complex ovarian cyst, followed by Dr. Muñoz and at [facility] oncology, allergic rhinitis, impaired fasting glucose, here today for her physical exam. She is up-to-date with her screening mammogram and cervical cancer screening has had her COVID vaccinations and gets yearly flu shot, states that she had her a tetanus shot in [place] approximately 3 years ago. She had an upper endoscopy and screening colonoscopy done by Dr. Schneider 05/08/2023 with removal of a gastric polyp, negative for H pylori, presence of diverticulosis with no colonic polyp seen. [facility] Medical History (Updated 10/16/23 @ 00:10 by Maria Del Rosario Bray MD) History of depression Diverticulosis BRCA negative Impaired fasting glucose Colon cancer screening Vitamin D deficiency Dyslipidemia Chronic GERD Gastric ulcer Family history of ovarian cancer Surgical History H/O colonoscopy History of esophagogastroduodenoscopy (EGD) History of repair of anterior cruciate ligament of right knee Family History Mother Ovarian cancer Father Bladder cancer Alzheimer disease HTN (hypertension) Maternal Aunt Endometrium cancer Diabetes HTN (hypertension) Family/Other Breast cancer Paternal Uncle Heart attack Paternal Uncle Lung cancer Paternal Grandfather Stroke Maternal Grandfather Parkinsons disease Paternal Grandmother Diabetes Social History Housing: House Are you a primary home care aide to a significant other at home: No Alcohol intake: current Alcohol intake frequency: holidays/special occasions only Alcohol type: wine Patient Tobacco Use Status: Never used Tobacco e-Cigarette/Vaping Use: Never Used service: No Current occupational status: employed Sexual orientation: Lesbian/Granados/Homosexual Gender identity: Female Cognitive needs: No Hearing needs: No Vision needs: No Female Reproductive History Menstrual Age of Menarche: 15 Date of last menstrual period: 09/18/23 Questionnaire PHQ-9 Over the last 2 weeks, how often have you been bothered by any of the following problems? 1. Little interest or pleasure in doing things: not at all 2. Feeling down, depressed, or hopeless: not at all 3. Trouble falling or staying asleep, or sleeping too much: not at all 4. Feeling tired or having little energy: not at all 5. Poor appetite or overeating: not at all 6. Feeling bad about yourself - or that you are a failure or have let yourself or your family down: not at all 7. Trouble concentrating on things, such as reading the newspaper or watching television: not at all 8. Moving or speaking so slowly that other people could have noticed. Or the opposite - being so fidgety or restless that you have been moving around a lot more than usual: not at all 9. Thoughts that you would be better off or of hurting yourself in some way: not at all Total score: 0 Depression Screening Interpretation: Negative Depression Screening Done: Yes 86433 - PHQ-9 Billing: Yes Source: Developed by Drs. Abhinav Nunes, Amalia Yuan, Romel Gandhi and colleagues, with an educational keshav from [employer]. Thrive Questionnaire Date Thrive assessed: 10/11/23 I am a: Patient What is your living situation today?: I have a steady place to live Within the past 12 months, did the food you bought not last and you didn't have the money to get more?: Never true Within the past 12 months, did you worry whether your food would run out before you got money to buy more?: Never true Do you have trouble paying for medicines?: No Do you have trouble getting transportation to medical appointments?: No Do you have trouble paying your heating and electricity bill?: No Do you have trouble taking care of your child, family member or friend?: No Do you have trouble with day-to-day activities such as bathing, preparing meals, shopping, managing finances, etc.?: No Are you currently unemployed and looking for a job?: No Are you interested in more education?: No THRIVE Score: 0 AUDIT C Alcohol Use Questionnaire (AUDIT-C) 1. How often do you have a drink containing alcohol?: Monthly or less 2. How many drinks containing alcohol do you have on a typical day when you are drinking?: 1 or 2 3. How often do you have six or more drinks on one occasion?: Never Total Score: 1 LAUREN-7 AMB Questionnaire LAUREN-7 Date LAUREN - 7 assessed: 10/11/23 Feeling nervous, anxious, or on edge: 0 = Not at all Not being able to stop or control worryin = Not at all Worrying too much about different things: 0 = Not at all Trouble relaxin = Not at all Being so restless that it is hard to sit still: 0 = Not at all Becoming easily annoyed or irritable: 0 = Not at all Feeling afraid as if something awful might happen: 0 = Not at all Total LAUREN-7 score (0-4 normal; 5-9 mild; 10-14 moderate; 15-21 severe): 0 Source: Developed by Drs. Abhinav Nunes, Amalia Yuan, Romel Gandhi and colleagues, with an educational keshav from [employer]. LAUREN-7 Assessment Billing LAUREN-7 Assessment Tool: LAUREN-7 Assessment 08429 Review of Systems Const Details: Fatigue, intermittent Eyes Denies change in vision ENT Details: Gets dental prophylaxis every 6 months Skin/Breast Details: Goes to [facility] dermatology for her routine skin cancer screening Physical exam (Primary Care) Vital Signs: Last Vital Signs Pulse 87 10/11/23 08:32 BP 110/64 10/11/23 08:32 Pulse Ox 97 10/11/23 08:32 Oxygen Delivery Method Room Air 10/11/23 08:32 BMI result Body Mass Index 31.2 Tobacco/Smoking Status: Tobacco use Status Tobacco use date assessed 10/11/23 10/11/23 08:35 Patient Tobacco Use Status Never used Tobacco 10/11/23 08:35 e-Cigarette/Vaping Use Never Used 10/11/23 08:35 PHQ-9: PHQ-9 Score PHQ-9: Total score 0 10/11/23 08:49 Depression Screening Interpretation: Negative Thrive Assessment: Date of Thrive Assessment Date Thrive assessed 10/11/23 10/11/23 08:40 Const General: no acute distress and alert Orientation/consciousness: patient oriented x3 HENMT Ears: external ears normal, TM's normal bilaterally and EAC's normal General nose exam: Normal external nose present and No nasal discharge present Mouth: oropharynx normal and moist mucous membranes Eyes General: appearance normal, both eyes and all related structures Neck Other: Nonpalpable thyroid gland Neck: Yes full ROM, Yes no lymphadenopathy and Yes supple Chest Breast/axilla palpation: normal palpation of the breasts Resp Effort & Inspection: normal respiratory effort and able to speak in complete sentences Auscultation: clear to auscultation bilaterally Cardio Rate: regular rate Rhythm: regular rhythm Heart sounds: S1 normal heart sound present and S2 normal heart sound present GI Palpation (GI): Soft to palpation, nontender and no masses Auscultation: normal bowel sounds General: Yes no CVA tenderness and Yes deferred (Currently followed by Dr. Muñoz) Back/Spine/Pelvis Back: no CVA tenderness and No back tenderness Skin General skin exam: no rashes or lesions noted Neuro General: patient oriented x3, gait normal, tone normal, moves all extremities, Normal light touch and pain sensation and no focal motor deficits Cranial nerves: Yes CN's II-XII intact bilaterally Cognition (Neuro): normal cognition Extrem General: Yes full ROM, Yes no joint enlargement and Yes no clubbing, cyanosis or edema Psych Appearance: grossly normal and well kempt Mental Status: mental status grossly normal Speech and movement: Normal speech and movement present Affect: normal affect Attitude: cooperative Thought process: Normal thought process present Assessment and Plan Assessment & Plan (1) Annual visit for general adult medical examination with abnormal findings: Code(s): Z00.01 - Encounter for general adult medical examination with abnormal findings Plan: Will check appropriate labs. Recommended dental visit every 6 months and regular eye exams, at least every 2 years. Take adequate calcium in diet and vitamin-D 3 at 2000 IU per cap once a day, in addition to weight-bearing exercises to help maintain good muscle tone and weight control. Instructed to do self-breast exam, and continue yearly mammogram. Currently sees Dr. Muñoz for her routine Pap and pelvic exam. Up-to-date with her colonoscopy, last done April 2023 with presence of diverticulosis seen, repeat in 2032 (2) Impaired fasting glucose: Code(s): R73.01 - Impaired fasting glucose Plan: Your previous fasting blood sugars were elevated above 100 mg/dL. Impaired glucose metabolism O2 at risk for developing diabetes mellitus type 2, as well as heart attack and stroke later on. Lifestyle changes at just weight loss, healthy eating habits, and regular exercise are important, and can prevent the progression to diabetes (3) Uterine myoma: Code(s): D25.9 - Leiomyoma of uterus, unspecified Qualifiers: Uterine leiomyoma location: unspecified location Qualified Code(s): D25.9 - Leiomyoma of uterus, unspecified Plan: Followed by Dr. Muñoz in [facility] oncology (4) Complex ovarian cyst: Comment: Maternal history of ovarian cancer at 46 Elevated ca 19-9 and alpha-fetoprotein Code(s): N83.299 - Other ovarian cyst, unspecified side Plan: Currently sees Dr. Muñoz and [facility] oncology (5) Dyslipidemia: Code(s): E78.5 - Hyperlipidemia, unspecified Plan: Fasting lipid panel ordered Continue low-cholesterol diet and regular exercise, at least 30 minutes 3 to 4 times a week. Advised patient to make healthy food choices, eat more fruits, vegetables, whole grains, wild caught fish and low-fat dairy. Limit amount of meat and fried or fatty food products, as well as processed foods and fast foods. (6) Chronic GERD: Code(s): K21.9 - Gastro-esophageal reflux disease without esophagitis Plan: , up-to-date with her upper endoscopy done April 2023 which showed presence of gastritis in the gastric polyps as well as a small hiatal hernia. Continue pantoprazole Orders: Orders TSH reflex Free T4 10/11/23 R53.83 - Other fatigue Coding Level of Care Code Est Pt Prev Care 40-64y(65908) Diagnoses Annual visit for general adult medical examination with abnormal findings Z00.01 Impaired fasting glucose R73.01 Uterine leiomyoma, unspecified location D25.9 Uterine leiomyoma location: unspecified location Complex ovarian cyst N83.299 Dyslipidemia E78.5 Chronic GERD K21.9 Additional Codes LAUREN-7 Assessment Billing - LAUREN-7 Assessment Tool: LAUREN-7 Assessment [id number] ([id number])
== END 2023-10-11 09:15 | disposition home or self-care (01) ==
PROVIDERS: PCP Internal Medicine; Visit Provider Internal Medicine
DX: Z00.00 Encounter for general adult medical examination without abnormal findings (principal); R73.01 Impaired fasting glucose; D25.9 Leiomyoma of uterus, unspecified; N83.299 Other ovarian cyst, unspecified side; E78.5 Hyperlipidemia, unspecified; K21.9 Gastro-esophageal reflux disease without esophagitis
CPT/HCPCS: 99396

== ENCOUNTER 2023-11-21 08:12 | Outpatient (REF) | payer OTHER, SELFPAY ==
[2023-11-21 10:28] LABS: MANUAL DIFF FLAG NO
[2023-11-21 10:48] LABS: Basophils Absolute Auto 0.1 X10*3/uL (0.0-0.2); Basophils Percent Auto 0.9 % (0-2); Eosinophils Absolute Auto 0.2 X10*3/uL (0.0-0.4); Eosinophils Percent Auto 3.3 % (0-4); Hematocrit 38.7 % (37.0-47.0); Hemoglobin 12.9 g/dl (12.0-16.0); Imm Gran Abs Auto 0.02 X10*3/uL (0.00-0.03); Imm Gran Pct Auto 0.3 % (0.0-0.4); Lymphocytes Absolute Auto 1.6 X10*3/uL (1.2-4.9); Lymphocytes Percent Auto 24.5 % (20-40); Mean Corpuscular HGB Conc 33.3 g/dl (31.0-35.0); Mean Corpuscular Hemoglobin 29.8 pg (27.0-33.0); Mean Corpuscular Volume 89.4 fL (80.0-98.0); Mean Platelet Volume 10.6 fL (9.4-12.3); Monocytes Absolute Auto 0.4 X10*3/uL (0.1-1.2); Monocytes Percent Auto 6.3 % (2-11); Neutrophils Absolute Auto 4.3 x10*3/uL (2.0-8.3); Neutrophils Percent Auto 64.7 % (45-73); Platelet Count 288 X10*3/uL (160-400); Red Blood Count 4.33 X10*6/uL (4.20-5.50); Red Cell Distribution Width 12.6 % (11.0-16.0); White Blood Count 6.6 X10*3/uL (4.8-10.8)
[2023-11-21 11:14] LABS: Alanine Aminotransferase 11 U/L (0-31); Aspartate Amino Transferase 15 U/L (5-31); Cholesterol 231 mg/dL (<200); Glucose Fasting 100 mg/dL (60-99); HDL Cholesterol 57 mg/dL (>40); LDL Cholesterol Calculated 144 mg/dL (<100); Triglycerides 150 mg/dL (<150)
[2023-11-21 11:16] LABS: Estimated Average Glucose 114 mg/dL; Hemoglobin A1c % 5.6 % (<6.0)
[2023-11-21 11:33] LABS: Vitamin D 25-OH Total 21.4 ng/mL (>30)
== END 2023-11-21 08:13 | disposition home or self-care (01) ==
LOC: HO.HMGCLDS 08:12
PROVIDERS: PCP Internal Medicine; Visit Provider Internal Medicine
DX: Z00.01 Encounter for general adult medical examination with abnormal findings (principal); Z13.6 Encounter for screening for cardiovascular disorders; R73.01 Impaired fasting glucose; R53.83 Other fatigue
CPT/HCPCS: 36415; 80061; 82306; 82947; 83036; 84443; 84450; 84460; 85025

== ENCOUNTER 2024-01-05 10:23 | Outpatient (AMB) | payer OTHER, SELFPAY ==
--- NOTE | 2024-01-05 10:21 | MHC.PC.OV ---
Intake Visit Reasons: discuss depression med [phone] Allergies muscle relaxer Adverse Reaction (Mild, Uncoded 01/05/24 10:37) hives Medication List - Last Reconciled 01/05/24 by Maria Del Rosario Bray MD cetirizine (Zyrtec) 10 mg PO DAILY escitalopram oxalate 10 mg PO DAILY pantoprazole 40 mg PO QAM Tobacco use date assessed: 01/05/24 Dental Screening Dental Screen Date: 01/05/24 Did you have a dental visit in the last 12 months?: Yes Did you have a dental problem in the last 6 months where you did not have access to dental care?: No Was dental information given to patient?: Patient has dentist HPI discuss depression med [phone] HPI Details 48-year-old lady with history of depression, previously on escitalopram but weaned herself off it earlier this year as she was starting to feel better. However over the last several months she started having lot of stress at home and at work, and started taking escitalopram 10 mg once a day approximately 6 weeks ago, and has been feeling better on it, would like to continue, needs refills. At present she does not feel that she needs to see a therapist [facility] Medical History (Updated 01/06/24 @ 01:36 by Maria Del Rosario Bray MD) Depression History of depression Diverticulosis BRCA negative Impaired fasting glucose Colon cancer screening Vitamin D deficiency Dyslipidemia Chronic GERD Gastric ulcer Family history of ovarian cancer Surgical History H/O colonoscopy History of esophagogastroduodenoscopy (EGD) History of repair of anterior cruciate ligament of right knee Family History Mother Ovarian cancer Father Bladder cancer Alzheimer disease HTN (hypertension) Maternal Aunt Endometrium cancer Diabetes HTN (hypertension) Family/Other Breast cancer Paternal Uncle Heart attack Paternal Uncle Lung cancer Paternal Grandfather Stroke Maternal Grandfather Parkinsons disease Paternal Grandmother Diabetes Social History Housing: House Are you a primary career developer to a significant other at home: No Alcohol intake: current Alcohol intake frequency: holidays/special occasions only Alcohol type: wine Patient Tobacco Use Status: Never used Tobacco e-Cigarette/Vaping Use: Never Used service: No Current occupational status: employed Sexual orientation: Lesbian/Granados/Homosexual Gender identity: Female Cognitive needs: No Hearing needs: No Vision needs: No Female Reproductive History Menstrual Age of Menarche: 15 Questionnaire Thrive Questionnaire Date Thrive assessed: 10/11/23 LAUREN-7 AMB Questionnaire LAUREN-7 Date LAUREN - 7 assessed: 10/11/23 Source: Developed by Drs. Abhinav Nunes, Amalia Yuan, Romel Gandhi and colleagues, with an educational keshav from [employer]. Review of Systems Const Denies body aches, Denies chills, Denies difficulty sleeping, Reports fatigue, Denies headache(s), Denies lethargy, Denies malaise and Denies poor appetite ENT Denies headache(s) Card Denies chest pain, Denies irregular heart rhythm, Denies lightheadedness and Denies dyspnea Resp Denies cough and Denies dyspnea GI Denies abdominal pain, Denies change in bowel habits and Denies heartburn Reports no additional complaints Musc Reports no additional complaints Neuro Denies headache(s) Psych Reports as per HPI Endo Reports fatigue Physical exam (Primary Care) Tobacco/Smoking Status: Tobacco use Status Tobacco use date assessed 01/05/24 01/05/24 10:22 Patient Tobacco Use Status Never used Tobacco 01/05/24 10:22 e-Cigarette/Vaping Use Never Used 01/05/24 10:22 Thrive Assessment: Date of Thrive Assessment Date Thrive assessed 10/11/23 01/05/24 10:22 Telehealth Telehealth Telehealth Platform: [facility] Location of provider rendering services: practice address Location of patient: address on file Patient Identification confirmed using: Name, : Yes Telehealth method: video Patient verbally consented to treatment: Yes Patient verbally consented to billing insurance company: Yes Patient informed of any privacy concerns related to visit: Yes Minutes spent on Phone/Video with Pt.: 15 Assessment and Plan Assessment & Plan (1) Depression: Code(s): F32.A - Depression, unspecified Plan: She has restarted back on escitalopram 10 mg once a day and has started to feel better, but they are still days that she feels like depression still not completely controlled on current dose of escitalopram. Advised that she can try increasing to 20 mg after another 2 weeks, declines referral for therapist at present time. Will see her back for follow-up in 02/2024 Medications: New escitalopram oxalate 10 mg PO DAILY 90 tabs 3RF Coding Level of Care Code Tele Est Pt Level 4 (08981) Diagnoses Depression F32.A
== END 2024-01-05 11:18 | disposition home or self-care (01) ==
LOC: HO.HMGC 10:23
PROVIDERS: PCP Internal Medicine; Visit Provider Internal Medicine
DX: F32.A Depression, unspecified (principal)
CPT/HCPCS: 99214

== ENCOUNTER → 2024-02-22 14:17 | Outpatient (RCR) | payer OTHER, SELFPAY ==
[2020-11-24 08:16] VITALS: BP 116/71; PULSE 88; RESP 14; TEMP 36.6; O2SAT 95; BMI 31.7
--- NOTE | 2020-11-24 09:12 | PM.HEMONCCN ---
Subjective - Subjective Chief complaint: Consult for family history of ovarian carcinoma. Patient: new to practice Consult date: 11/24/20 Requesting Physician: Katarina. Primary Care Provider: Maria Del Rosario Bray MD Medical Summary: DIAGNOSIS: FAMILY HISTORY OF OVARIAN CANCER. HPI - Consult Narrative Reason for consult: Consult for family history of ovarian cancer. Narrative: Etelvina Crooks is a pleasant 45 year old lady here for genetic counseling and testing. Family history: She tells me her mom was diagnosed with advanced ovarian cancer at the age of 45. He had surgery chemotherapy and radiation. Subsequently she was on a clinical trial. Unfortunately she after 8 months, at the age of 46. Her maternal aunt was diagnosed with endometrial carcinoma in her 60s. She later on developed peritoneal carcinoma and from it. Maternal great aunt had breast cancer. Her father had bladder cancer. ROS: She denies easy fatigability. No fever nor chills. She enjoys a good appetite. She has gained weight over the years. She gained 55 lb in the last 4 years. She denies headaches. She gets vertigo off and on. She had seen ENT. She was prescribed meclizine but that did not really work. She has not had physical therapy for it. No chest pain or trouble breathing. She denies abdominal pain nausea vomiting heartburn indigestion. No diarrhea. She has IBS with constipation. She has managed it with her diet. She was on MiraLax for 19 years however now she takes it p.r.n.. No urinary complaints. 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 She still gets her periods regularly. She had felt hot all the time. She had thyroid testing done which was negative. She has a group director exam scheduled for tomorrow. She had a mammogram last April along with ultrasound because of dense breasts. Musculoskeletal: she has aches and pains. She was prescribed antidepressants in May. She recently developed eczema. It was all over her body. Now it is sporadic. Social history: She recently moved from [place]. 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 She is . She has no children. She denies smoking. She drinks socially. Review of Systems - Constitutional Reports system reviewed and no additional complaints, except as documented - Eyes Reports system reviewed and no additional complaints, except as documented - ENT Reports system reviewed and no additional complaints, except as documented - Cardiovascular Reports system reviewed and no additional complaints, except as documented - Respiratory Reports no additional respiratory complaints - Gastrointestinal Reports system reviewed and no additional complaints, except as documented, Reports constipation - Genitourinary Reports no additional female genitourinary complaints - Musculoskeletal Reports system reviewed and no additional complaints, except as documented, Reports joint pain - Integumentary/Breasts Skin/Breast: Reports no additional skin complaints - Neurologic Reports system reviewed and no additional complaints, except as documented - Psychiatric Reports system reviewed and no additional complaints, except as documented - Endocrine Reports no additional endocrine complaints - Hematologic/Lymphatic Reports system reviewed and no additional complaints, except as documented - Allergic/Immunologic Reports system reviewed and no additional complaints, except as documented Oncology Screenings - ECOG Performance Status ECOG Performance Status: 0 PMFSH Medical History: Medical History (Last Reviewed 11/25/20 @ 08:08 by NAHUN Bach) Chronic GERD Depression Family history of ovarian cancer Gastric ulcer Functional capacity: independent ambulation Patient : No Family History: Family History (Last Reviewed 11/25/20 @ 08:08 by NAHUN Bach) Mother Ovarian cancer Father Bladder cancer Alzheimer disease HTN (hypertension) Maternal Aunt Endometrium cancer Diabetes HTN (hypertension) Family/Other Breast cancer Paternal Uncle Heart attack Paternal Uncle Lung cancer Paternal Grandfather Stroke Maternal Grandfather Parkinsons disease Paternal Grandmother Diabetes Surgical History: Surgical History (Last Reviewed 11/25/20 @ 08:08 by NAHUN Bach) History of repair of anterior cruciate ligament of right knee Social History: Social History (Last Updated 11/25/20 @ 08:08 by NAHUN Bach) Living Situation History: Are you a primary field care advocate to a significant other at home: No Alcohol History: Alcohol intake: current Alcohol History Details: Alcohol intake frequency: 0-2 drinks per day Alcohol type: wine Tobacco History: Patient Tobacco Use Status: Never used Tobacco Substance Use History: Use of substances other than those prescribed or required for medical reasons: No Domestic Abuse History: Have you been hit, kicked, punched, or otherwise hurt by someone within the past year? If so, by whom?: No Do you feel safe in your current relationship?: Yes Healthcare Practices: Spiritual Healthcare Practices: n/a Oriental Orthodox Healthcare Practices: n/a Cultural Healthcare Practices: n/a Nutrition Assessment: Recently lost weight without trying: No Nutrition Risks: No Nutritional Risk Patient : No : No Poor oral hygiene: No Sex/Gender Assessment: Gender identity: female Home Medications and Allergies Home Medications Medication Instructions Recorded Confirmed Type cetirizine 10 mg tablet 10 mg PO DAILY 11/03/20 11/24/20 History triamcinolone acetonide 1 applic TOPICAL BID-TID 11/24/20 11/24/20 History triamcinolone acetonide appl TOPICAL BID 11/24/20 History Allergies Allergy/AdvReac Type Severity Reaction Status Date / Time No Known Allergies Allergy Verified 11/25/20 08:07 Physical Exam Vital signs: Vital Signs Temp 97.8 F 11/24/20 08:16 Pulse 88 11/24/20 08:16 Resp 14 11/24/20 08:16 BP 116/71 11/24/20 08:16 Pulse Ox 95 11/24/20 08:16 Intake & Output 11/23/20 11/24/20 11/24/20 18:59 06:59 18:59 Other: Weight 94.8 kg Weight in Grams 22474 Weight 94.8 kg Assessment and Plan (1) Family history of ovarian cancer Status: Acute This is a pleasant 45-year-old lady with a family history of ovarian carcinoma. Her mom had ovarian cancer at the age of 45. Maternal aunt had peritoneal carcinoma in her 60s. Maternal great aunt had breast cancer. Ovarian cancer the 5th most common cancer in women and the most common cause of gynecological cancer deaths. Approximately 1 in 70 women will develop ovarian cancer in her lifetime. The most common recognized risk factor associated with the disease is advancing age. Other factors contributing to an increased risk of the disease include infertility, endometriosis, and post menopausal hormone replacement therapy. Use of assisted reproductive technologies such is IVF may increase a woman's risk of developing ovarian cancer. Women with increased risk, (3 to 6 times greater than that of the general population): 1. A 1st degree relative, (mother, sister or daughter) with ovarian cancer. 2. A personal history of breast cancer prior to age 40. 3. A personal history of breast cancer diagnosed prior to 50 and 1 on more close relatives diagnosed breast or ovarian cancer at any age. 4. Two or more close relatives diagnosis breast cancer prior to age 50 or with ovarian cancer diagnosed at any age. 5. Ashkenazi Jehovah'S Witness heritage and a personal history of breast cancer prior to age 50. 6. Ashkenazi Jehovah'S Witness heritage and a 1st or second-degree relative diagnosed with breast cancer prior to age 50 or with ovarian cancer at any age. For individuals who meet the family history criteria but have tested negative for a genetic mutation known to increased susceptibility to the disease, the risk of developing ovarian cancer may be substantially lower. In general, the USPSTF does not recommend routine screening for ovarian cancer in asymptomatic women, using any method. Transvaginal ultrasound and serum CA 125 testing are available procedure that a commonly used to evaluate women with signs or symptoms of ovarian cancer. Women with mutations in ovarian cancer susceptibility genes should undergo ovarian cancer screening using a combination of transvaginal ultrasound and CA 125 testing. For women with mutations in BRCA 1 or mismatch repair genes: MLH1, MSH2 and MSH6, this screening should generally begin between ages of 30 and 35. For women with mutations in BRCA 2 ovarian cancer screening should be initiated between ages 35 and 40. Given the limitation of ovarian cancer screening, including the substantial risk of both false positive and false negative results, risk reducing salpingo-oophorectomy should be considered upon conclusion of childbearing by women with documented inherited predispositions. CBC: WBC 7.5, HGB 13, HCT 39.3, PLT 315. Lytes: WNL, BUN 13, BRAZER RESISTANCE 0.8, AAST/ALT: 16. I did employee counselor her about genetic testing. She had to get back to work today. PLAN: She will return next Monday for the actual testing. She will be following up with MEDICAL PHYSIOLOGIST tomorrow. Will make screening recommendations based upon her genetic testing results. She will return in 6 weeks for a follow-up visit. Thank you, CC: Dr. Bray. Dr. Briscoe.
--- NOTE | 2020-11-24 13:40 | MHC.HEMONCMA ---
Patient came in for a consult today for genetic testing. Clinical summary was reviewed and updated. Patient did not have labs, she will return on Monday for the genetic testing.
--- NOTE | 2020-12-01 08:22 | MHC.HEMONCMA ---
Patient came in for genetic testing. Patient watched the video, called and spoke with the genetic counselors. I obtained a copy of both her license and insurance cards, and had her sign both consents. Patient was brought to the lab so that she could give her blood sample, sticker with her name and placed on the tube, patient verified that her name and date of are correct. Patient understands that the will not run the sample if her insurance does not cover the testing. She will be contacted.
== END | disposition home or self-care (01) ==
LOC: HO.ONC 11-24 08:03
PROVIDERS: PCP Internal Medicine; Referring Provider Internal Medicine; Visit Provider Internal Medicine Medical Oncology
DX: Z80.41 Family history of malignant neoplasm of ovary (principal)
CPT/HCPCS: 99204

== ENCOUNTER 2024-03-15 11:48 | Outpatient (AMB) | payer OTHER, SELFPAY ==
--- NOTE | 2024-03-15 11:46 | A.OFFPC_ITS ---
Intake Visit Reasons[phone] Allergies muscle relaxer Adverse Reaction (Mild, Uncoded 03/15/24 12:16) hives Medication List - Last Reconciled 03/15/24 by Maria Del Rosario Bray MD cetirizine (Zyrtec) 10 mg PO DAILY escitalopram oxalate 10 mg PO DAILY pantoprazole 40 mg PO QAM Tobacco use date assessed: 03/15/24 Dental Screening Dental Screen Date: 03/15/24 Did you have a dental visit in the last 12 months?: Yes Did you have a dental problem in the last 6 months where you did not have access to dental care?: No Was dental information given to patient?: Patient has dentist [phone] HPI Details Telehealth visit made with 48-year-old lady with history of hyperlipidemia, here today for follow-up on her depression. She was started on escitalopram 10 mg daily 2 months ago , tolerating medication well, and states that mood swings her infrequent, denies any anxiety attacks, overall feels well on current dose. [facility] Medical History Depression History of depression Diverticulosis BRCA negative Impaired fasting glucose Colon cancer screening Vitamin D deficiency Dyslipidemia Chronic GERD Gastric ulcer Family history of ovarian cancer Surgical History H/O colonoscopy History of esophagogastroduodenoscopy (EGD) History of repair of anterior cruciate ligament of right knee Family History Mother Ovarian cancer Father Bladder cancer Alzheimer disease HTN (hypertension) Maternal Aunt Endometrium cancer Diabetes HTN (hypertension) Family/Other Breast cancer Paternal Uncle Heart attack Paternal Uncle Lung cancer Paternal Grandfather Stroke Maternal Grandfather Parkinsons disease Paternal Grandmother Diabetes Social History Housing: House Are you a primary director of career services to a significant other at home: No Alcohol intake: current Alcohol intake frequency: holidays/special occasions only Alcohol type: wine Patient Tobacco Use Status: Never used Tobacco e-Cigarette/Vaping Use: Never Used service: No Current occupational status: employed Sexual orientation: Lesbian/Granados/Homosexual Gender identity: Female Cognitive needs: No Hearing needs: No Vision needs: No Female Reproductive History Menstrual Age of Menarche: 15 Questionnaire PHQ-9 Over the last 2 weeks, how often have you been bothered by any of the following problems? 1. Little interest or pleasure in doing things: not at all 2. Feeling down, depressed, or hopeless: not at all 3. Trouble falling or staying asleep, or sleeping too much: several days (Frequently wakes up in the middle of the night but able to go back to sleep without any problem) 4. Feeling tired or having little energy: not at all 5. Poor appetite or overeating: not at all 6. Feeling bad about yourself - or that you are a failure or have let yourself or your family down: not at all 7. Trouble concentrating on things, such as reading the newspaper or watching television: not at all 8. Moving or speaking so slowly that other people could have noticed. Or the opposite - being so fidgety or restless that you have been moving around a lot more than usual: not at all 9. Thoughts that you would be better off or of hurting yourself in some way: not at all Total score: 1 Depression Screening Interpretation: Negative (Depression controlled on escitalopram 10 mg daily) Depression Screening Done: Yes 07696 - PHQ-9 Billing: Yes Source: Developed by Drs. Abhinav Nunes, Amalia Yuan, Romel Gandhi and colleagues, with an educational keshav from [employer]. Thrive Questionnaire Date Thrive assessed: 03/12/24 I am a: Patient What is your living situation today?: I have a steady place to live Within the past 12 months, did the food you bought not last and you didn't have the money to get more?: Never true Within the past 12 months, did you worry whether your food would run out before you got money to buy more?: Never true Do you have trouble paying for medicines?: No Do you have trouble getting transportation to medical appointments?: No Do you have trouble paying your heating and electricity bill?: No Do you have trouble taking care of your child, family member or friend?: No Do you have trouble with day-to-day activities such as bathing, preparing meals, shopping, managing finances, etc.?: No Are you interested in more education?: No Please select the resources that you would like help with: None Currently or been in a relationship where the following occur: No concerns reported THRIVE Score: 0 AUDIT C Alcohol Use Questionnaire (AUDIT-C) 1. How often do you have a drink containing alcohol?: 2-3 times a week 2. How many drinks containing alcohol do you have on a typical day when you are drinking?: 1 or 2 3. How often do you have six or more drinks on one occasion?: Never Total Score: 3 LAUREN-7 AMB Questionnaire LAUREN-7 Date LAUREN - 7 assessed: 10/11/23 Feeling nervous, anxious, or on edge: 0 = Not at all Not being able to stop or control worryin = Not at all Worrying too much about different things: 0 = Not at all Trouble relaxin = Not at all Being so restless that it is hard to sit still: 0 = Not at all Becoming easily annoyed or irritable: 0 = Not at all Feeling afraid as if something awful might happen: 0 = Not at all Total LAUREN-7 score (0-4 normal; 5-9 mild; 10-14 moderate; 15-21 severe): 0 Source: Developed by Drs. Abhinav Nunes, Amalia Yuan, Romel Gandhi and colleagues, with an educational keshav from [employer]. Review of Systems Const Denies body aches, Denies headache(s), Denies lethargy, Denies malaise and Denies poor appetite ENT Denies headache(s) Card Denies chest pain, Denies irregular heart rhythm, Denies lightheadedness and Denies dyspnea Resp Denies cough and Denies dyspnea GI Denies abdominal pain, Denies change in bowel habits and Denies heartburn Reports no additional complaints Musc Reports no additional complaints Neuro Denies headache(s) Psych Reports as per HPI Physical exam (Primary Care) Tobacco/Smoking Status: Tobacco use Status Tobacco use date assessed 03/15/24 03/15/24 11:47 Patient Tobacco Use Status Never used Tobacco 03/15/24 11:47 e-Cigarette/Vaping Use Never Used 03/15/24 11:47 Depression Screening Interpretation: Negative (Depression controlled on escitalopram 10 mg daily) Thrive Assessment: Date of Thrive Assessment Date Thrive assessed 03/12/24 03/15/24 11:47 Currently or been in a relationship where the following occur: No concerns reported Telehealth Telehealth Telehealth Platform: [employer] Location of provider rendering services: practice address Location of patient: address on file Patient Identification confirmed using: Name, : Yes Telehealth method: video Patient verbally consented to treatment: Yes Patient verbally consented to billing insurance company: Yes Patient informed of any privacy concerns related to visit: Yes Minutes spent on Phone/Video with Pt.: 15 Assessment and Plan Assessment & Plan (1) Depression: Code(s): F32.A - Depression, unspecified Qualifiers: Depression Type: major depressive disorder Active/Remission status: in full remission Major depression recurrence: unspecified whether recurrent Qualified Code(s): F32.5 - Major depressive disorder, single episode, in full remission Plan: Patient has depression controlled on escitalopram 10 mg once a day, will continue on current dose. Declines referral for any counseling, does not feel that she needs it Coding Level of Care Code Tele Est Pt Level 3 (49517) Diagnoses Major depressive disorder in full remission, unspecified whether recurrent F32.5 Depression Type: major depressive disorder Active/Remission status: in full remission Major depression recurrence: unspecified whether recurrent
== END 2024-03-15 14:04 | disposition home or self-care (01) ==
LOC: HO.HMCC 11:48
PROVIDERS: PCP Internal Medicine; Visit Provider Internal Medicine
DX: F32.5 Major depressive disorder, single episode, in full remission (principal)

== ENCOUNTER → 2024-03-15 11:48 | Outpatient (BNVA) | payer OTHER, SELFPAY | PROVIDERS: PCP Internal Medicine; Visit Provider Internal Medicine | DX: F32.5 Major depressive disorder, single episode, in full remission (principal); Z79.899 Other long term (current) drug therapy ==

== ENCOUNTER 2024-05-22 08:09 | Outpatient (AMB) | payer OTHER, SELFPAY ==
[2024-05-22 08:12] VITALS: BP 120/74; PULSE 76; O2SAT 96; BMI 30.4
--- NOTE | 2024-05-22 08:12 | MHC.OFFVIS ---
Vital Signs 05/22/24 08:12 Height 5 ft 8 in Weight 200 lb 2.876 oz BMI 30.4 BP 120/74 Blood Pressure Location Rt brachial Position Sitting Pulse 76 Pulse Source Pulse Oximeter Pulse Oximetry (%) 96 Oxygen Delivery Method Room Air Intake Visit Reasons: One year follow up Intake Note: Etelvina presents in office today for a scheduled 1 YR FUV. CC; Any changes or new sx since last visit? Pt denies any significant changes. Pt would like to discuss MRI (November 2023) that was for OBGYN but also had some GI implications. Pt has questions regarding this. 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 Patient was encouraged to avoid dietary triggers and late night snacking. Staying upright for minimum 3 hours after meals discussed with patient. Colonoscopy showed no polyps. Moderate diverticulosis in sigmoid colon. Discussed with patient high-fiber diet. List of food high in fiber given to patient. Patient will continue MiraLax. I will see patient in 1 year, sooner on as needed basis. Patient is agreeable to this plan and verbalizes understanding of instructions. She was given the opportunity to ask questions and all questions answered TODAY'S VISIT Patient had is here today for follow-up. Patient reports that for the most part she has not feeling well, takes pantoprazole in the morning and her are suppressed for the most part. Occasionally at night time patient will have acid reflux. Patient reports that she does not eat late at night. Patient wanted to review MRI, however when looking over her records she did not have MRI done in November. Dr. Muñoz ordered CT scan and it was done back in July. Patient denies any nausea or vomiting. Denies any melena, hematochezia, unintentional weight loss or ribbon like stools. Patient reports her left upper quadrant lipoma is getting larger and she is having hard time bending over. Unable to wear a bra [facility] Medical History Depression History of depression Diverticulosis BRCA negative Impaired fasting glucose Colon cancer screening Vitamin D deficiency Dyslipidemia Chronic GERD Gastric ulcer Family history of ovarian cancer Surgical History H/O colonoscopy History of esophagogastroduodenoscopy (EGD) History of repair of anterior cruciate ligament of right knee Family History Mother Ovarian cancer Father Bladder cancer Alzheimer disease HTN (hypertension) Maternal Aunt Endometrium cancer Diabetes HTN (hypertension) Family/Other Breast cancer Paternal Uncle Heart attack Paternal Uncle Lung cancer Paternal Grandfather Stroke Maternal Grandfather Parkinsons disease Paternal Grandmother Diabetes Social History Housing: House Are you a primary patient care associate to a significant other at home: No Alcohol intake: current Alcohol intake frequency: holidays/special occasions only Alcohol type: wine Patient Tobacco Use Status: Never used Tobacco e-Cigarette/Vaping Use: Never Used service: No Current occupational status: employed Sexual orientation: Lesbian/Granados/Homosexual Gender identity: Female Cognitive needs: No Hearing needs: No Vision needs: No Female Reproductive History Menstrual Age of Menarche: 15 Review of Systems Const Denies weight gain and Denies weight loss ENT Reports no additional complaints, Denies dysphagia and Denies odynophagia Card Reports no additional complaints Resp Reports no additional complaints GI Denies abdominal pain, Denies belching, Denies melena, Reports bloating, Denies change in bowel habits, Denies dysphagia, Denies excessive flatus, Denies dyspepsia, Reports heartburn, Denies diarrhea, Denies loose stools, Denies nausea, Denies odynophagia and Denies vomiting Reports no additional complaints Musc Reports no additional complaints Neuro Reports no additional complaints Psych Reports no additional complaints Endo Reports no additional complaints Physical Exam Vital Signs: Last Vital Signs Pulse 76 05/22/24 08:12 BP 120/74 05/22/24 08:12 Pulse Ox 96 05/22/24 08:12 Oxygen Delivery Method Room Air 05/22/24 08:12 BMI result Body Mass Index 30.4 Const General: healthy appearing, no acute distress and well developed Nutritional Appearance: well nourished Orientation/consciousness: patient oriented x3 Resp Effort & Inspection: normal respiratory effort, able to speak in complete sentences, no tracheal deviation and symmetric chest movement Auscultation: clear to auscultation bilaterally Cardio Rate: regular rate GI Other: Large lipoma in left upper quadrant Inspection: Yes normal to inspection and No distended Palpation (GI): Soft to palpation, not firm, nontender and No hepatosplenomegaly present Auscultation: normal bowel sounds General: Yes no CVA tenderness Back/Spine/Pelvis Back: no CVA tenderness Skin General skin exam: elasticity normal, turgor normal and dry skin Neuro General: patient oriented x3 Psych Appearance: grossly normal Mental Status: mental status grossly normal Assessment & Plan Assessment & Plan (1) IBS (irritable bowel syndrome): Code(s): K58.9 - Irritable bowel syndrome, unspecified Category: Medical Qualifiers: Irritable bowel syndrome type: with constipation Qualified Code(s): K58.1 - Irritable bowel syndrome with constipation (2) Chronic GERD: Code(s): K21.9 - Gastro-esophageal reflux disease without esophagitis Category: Medical (3) Lipoma of abdominal wall: Code(s): D17.1 - Benign lipomatous neoplasm of skin and subcutaneous tissue of trunk Plan Continue pantoprazole daily. Avoid dietary triggers and late night snacking. Staying upright for minimal 3 hours after meals discussed with patient. Patient famotidine at bedtime. Referral to General surgery for large lipoma of her left upper quadrant. Patient will follow-up in our office on as needed basis. She is agreeable to this plan and verbalizes understanding of instructions. She was given the opportunity to ask questions and all questions answered. Thank you for allowing me to participate in her care Orders: Referrals General Surgery Referral D17.1 - Benign lipomatous neoplasm of skin and subcutaneous tissue of trunk Medications: New famotidine (Pepcid) 20 mg PO BEDTIME 90 tabs 3RF K21.9 - Gastro-esophageal reflux disease without esophagitis Coding Level of Care Code Est Pt Level 3 (36443) Diagnoses Irritable bowel syndrome with constipation K58.1 Irritable bowel syndrome type: with constipation Chronic GERD K21.9 Lipoma of abdominal wall D17.1 Time Spent (min) 30 Comment 20 minutes spent with patient and additional 10 minutes spent reviewing her records
== END 2024-05-22 08:48 | disposition home or self-care (01) ==
PROVIDERS: PCP Internal Medicine; Visit Provider Nurse Practitioner Family
DX: K58.1 Irritable bowel syndrome with constipation (principal); K21.9 Gastro-esophageal reflux disease without esophagitis; D17.1 Benign lipomatous neoplasm of skin and subcutaneous tissue of trunk
CPT/HCPCS: 99213

== ENCOUNTER → 2024-05-22 08:09 | Outpatient (BNVA) | payer OTHER, SELFPAY | PROVIDERS: PCP Internal Medicine; Visit Provider Nurse Practitioner Family ==

== ENCOUNTER 2024-05-23 09:03 | Outpatient (REF) | payer OTHER, SELFPAY ==
--- NOTE | ~2024-05-23 | MM_ITS ---
EXAMINATION: MM SCREENING DIGITAL BREAST TOMOSYNTHESIS, BILATERAL CLINICAL INFORMATION: Screening. Asymptomatic. COMPARISON: Mammography: Comparison is made with available priors TECHNIQUE: Digital breast mammography with tomosynthesis is performed in both the craniocaudal and mediolateral oblique views along with computer-aided detection (CAD). FINDINGS: The breasts are heterogeneously dense, which may obscure small masses (ACR BI-RADS breast composition Category c). Bilateral circumscribed oval masses which wax and wane consistent with benign cysts and fibrocystic changes. There are no significant masses, abnormal calcifications, or other abnormalities. MM/MM tomosynthesis screening BI IMPRESSION: No mammographic evidence of malignancy. ASSESSMENT: BI-RADS BI-RADS 2 - Benign Findings RECOMMENDATION: Routine annual mammography screening. 1 year F/U This examination should not preclude the clinical evaluation of a suspicious palpable abnormality. This patient's information was entered into a reminder system with a target due date for their next mammogram. Electronically signed by: Karla Jenkins DO 05/29/2024 10:54 AM [facility]
== END 2024-05-23 09:04 | disposition home or self-care (01) ==
LOC: HO.MAMMO 09:03
PROVIDERS: PCP Internal Medicine; Visit Provider Internal Medicine
DX: Z12.31 Encounter for screening mammogram for malignant neoplasm of breast (principal)
CPT/HCPCS: 77063; 77067

== ENCOUNTER → 2024-05-23 09:15 | Outpatient (BNV) | payer OTHER, SELFPAY | PROVIDERS: PCP Internal Medicine; Visit Provider Internal Medicine | DX: Z12.31 Encounter for screening mammogram for malignant neoplasm of breast (principal) | CPT/HCPCS: 77063; 77067 ==

== ENCOUNTER 2024-06-05 09:59 | Outpatient (AMB) | payer OTHER, SELFPAY ==
--- NOTE | 2024-06-05 10:11 | A.OFFVIS_ITS ---
Vital Signs 06/05/24 10:20 Height 5 ft 8 in Weight 204 lb BMI 31.0 BP 117/60 Blood Pressure Location Rt brachial Position Sitting Pulse 84 Intake Visit Reasons: Lipoma Intake Note: This patient presents for lipoma assessment. 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 She had noticed this lump on her abdominal wall just below the chest for about 7 years now. She says that this has been increasing in size. She describes discomfort when she is wearing a bra. She denies any skin changes or discharge. She wants this mass removed. [facility] Medical History (Updated 06/05/24 @ 10:40 by Tawanda Wilkes MD) Lipoma of abdominal wall Depression History of depression Diverticulosis BRCA negative Impaired fasting glucose Colon cancer screening Vitamin D deficiency Dyslipidemia Chronic GERD Gastric ulcer Family history of ovarian cancer Surgical History H/O colonoscopy History of esophagogastroduodenoscopy (EGD) History of repair of anterior cruciate ligament of right knee Family History Mother Ovarian cancer Father Bladder cancer Alzheimer disease HTN (hypertension) Maternal Aunt Endometrium cancer Diabetes HTN (hypertension) Family/Other Breast cancer Paternal Uncle Heart attack Paternal Uncle Lung cancer Paternal Grandfather Stroke Maternal Grandfather Parkinsons disease Paternal Grandmother Diabetes Social History Housing: House Are you a primary resident care provider to a significant other at home: No Alcohol intake: current Alcohol intake frequency: holidays/special occasions o nly Alcohol type: wine Patient Tobacco Use Status: Never used Tobacco e-Cigarette/Vaping Use: Never Used service: No Current occupational status: employed Sexual orientation: Lesbian/Granados/Homosexual Gender identity: Female Cognitive needs: No Hearing needs: No Vision needs: No Female Reproductive History Menstrual Age of Menarche: 15 Review of Systems Const Denies chills and Denies fever(s) Card Denies chest pain, Denies dyspnea and Denies dyspnea on exertion Resp Denies cough, Denies dyspnea and Denies dyspnea on exertion GI Denies hematochezia and Denies change in bowel habits Denies hematuria Musc Denies back pain and Denies limited range of motion Neuro Denies focal weakness and Denies convulsions Psych Denies depression and Denies mood swings Physical Exam Vital Signs: Last Vital Signs Pulse 84 06/05/24 10:20 BP 117/60 06/05/24 10:20 BMI result Body Mass Index 31.0 GI Other: Large lipomatous mass, about 8 cm in diameter, on the upper abdominal wall to the left side near the chest as well, mobile, well-defined Assessment & Plan Assessment & Plan (1) Lipoma of abdominal wall: Code(s): D17.1 - Benign lipomatous neoplasm of skin and subcutaneous tissue of trunk Category: Medical Plan: She wants this removed. I explained the technique of excision which would be done under anesthesia in the OR in view of the large size of the lipoma. I reviewed the risks including but not limited to bleeding, infections, poor healing, postop pain, as well as the benefits alternatives. I also explained to her what to expect postoperatively. She understands and wants to proceed. Coding Level of Care Code New Pt Level 3 (48021) Diagnoses Lipoma of abdominal wall D17.1
[2024-06-05 10:20] VITALS: BP 117/60; PULSE 84; BMI 31.0
== END 2024-06-05 10:43 | disposition home or self-care (01) ==
PROVIDERS: PCP Internal Medicine; Referring Provider Nurse Practitioner Family; Visit Provider Surgery
DX: D17.1 Benign lipomatous neoplasm of skin and subcutaneous tissue of trunk (principal)
CPT/HCPCS: 99203

== ENCOUNTER → 2024-06-05 09:59 | Outpatient (BNVA) | payer OTHER, SELFPAY | PROVIDERS: PCP Internal Medicine; Referring Provider Nurse Practitioner Family; Visit Provider Surgery ==

== ENCOUNTER 2024-06-28 10:01 | Day surgery (SDC) | payer OTHER, SELFPAY ==
[2024-06-26 11:51] VITALS: BMI 31.0
--- NOTE | 2024-06-26 13:39 | HO.ANESPROP2 ---
Documented by User: Radha Gaffney NP 06/26/24 13:39 HPI - Anesthesia Eval Consult details Narrative: 48yo F for Excision Lipoma of Large Lipoma Abdominal Wall Under Anesthesia PMFSH Active Problems Active Problems: All Active Problems Complex ovarian cyst (Acute) Uterine myoma (Acute) Abnormal uterine bleeding (Acute) Encounter to discuss test results (Acute) Family history of malignant neoplasm of ovary in first degree relative (Acute) Cervical cancer screening (Acute) Well woman exam with routine gynecological exam (Acute) Pelvic pain (Acute) History of repair of anterior cruciate ligament of right knee (Acute) Acute eczema (Acute) IBS (irritable bowel syndrome) (Acute) Lipoma of abdominal wall (Acute) Depression (Acute) Diverticulosis (Acute) Impaired fasting glucose (Acute) Colon cancer screening (Acute) Vitamin D deficiency (Acute) Dyslipidemia (Acute) Chronic GERD (Acute) Family history of ovarian cancer (Acute) Past Medical History Medical History Lipoma of abdominal wall Depression History of depression Diverticulosis BRCA negative Impaired fasting glucose Colon cancer screening Vitamin D deficiency Dyslipidemia Chronic GERD Gastric ulcer Family history of ovarian cancer Family History Family History Mother Ovarian cancer Father Bladder cancer Alzheimer disease HTN (hypertension) Maternal Aunt Endometrium cancer Diabetes HTN (hypertension) Family/Other Breast cancer Paternal Uncle Heart attack Paternal Uncle Lung cancer Paternal Grandfather Stroke Maternal Grandfather Parkinsons disease Paternal Grandmother Diabetes Family history of problems with anesthesia: No Surgical History Surgical History Hx of dilation and curettage H/O colonoscopy History of esophagogastroduodenoscopy (EGD) History of repair of anterior cruciate ligament of right knee History of Problems with Anesthesia: No Social History Social History Housing: House Are you a primary critical care unit nurse to a significant other at home: No Do you presently have visiting nurse or other home services: No Alcohol intake: current Alcohol intake frequency: holidays/special occasions only Alcohol type: wine Patient Tobacco Use Status: Never used Tobacco e-Cigarette/Vaping Use: Never Used Have you been hit, kicked, punched, or otherwise hurt by someone within the past year? If so, by whom?: No Are you DNR?: No Advance Directives: No Advance Directives Information Provided: Yes Recently lost weight without trying: No Nutrition Risks: No Nutritional Risk FDLMP: 2 weeks ago service: No Current occupational status: employed Sexual orientation: Lesbian/Granados/Homosexual Gender identity: Female Cognitive needs: No Hearing needs: No Vision needs: No Meds Allergies Allergy/AdvReac Type Severity Reaction Status Date / Time muscle relaxer AdvReac Mild hives Uncoded 06/28/24 10:40 Home Medications ?Medication ?Instructions ?Recorded ?Confirmed ?Last Taken ?Type cetirizine 10 mg tablet (Zyrtec) 10 mg PO DAILY 11/03/20 06/26/24 02/16/21 07:00 History Exam Height,Weight and Vital Signs: Height 5 ft 8 in Weight 92.533 kg Assessment and Plan Assessment Anesthesia Assessment: Chart Reviewed Final Anesthetic Review Family History of Problems with Anesthesia: No History of Problems with Anesthesia: No Documented by User: Warner King MD 06/28/24 11:14 PMFSH Past Medical History Medical History Lipoma of abdominal wall Depression History of depression Diverticulosis BRCA negative Impaired fasting glucose Colon cancer screening Vitamin D deficiency Dyslipidemia Chronic GERD Gastric ulcer Family history of ovarian cancer Patient : No Family History Family History Mother Ovarian cancer Father Bladder cancer Alzheimer disease HTN (hypertension) Maternal Aunt Endometrium cancer Diabetes HTN (hypertension) Family/Other Breast cancer Paternal Uncle Heart attack Paternal Uncle Lung cancer Paternal Grandfather Stroke Maternal Grandfather Parkinsons disease Paternal Grandmother Diabetes Surgical History Surgical History Hx of dilation and curettage H/O colonoscopy History of esophagogastroduodenoscopy (EGD) History of repair of anterior cruciate ligament of right knee Social History Social History Housing: House Are you a primary critical care unit nurse to a significant other at home: No Do you presently have visiting nurse or other home services: No Alcohol intake: current Alcohol intake frequency: holidays/special occasions only Alcohol type: wine Patient Tobacco Use Status: Never used Tobacco e-Cigarette/Vaping Use: Never Used Have you been hit, kicked, punched, or otherwise hurt by someone within the past year? If so, by whom?: No Are you DNR?: No Advance Directives: No Advance Directives Information Provided: Yes Recently lost weight without trying: No Nutrition Risks: No Nutritional Risk FDLMP: 2 weeks ago service: No Current occupational status: employed Sexual orientation: Lesbian/Granados/Homosexual Gender identity: Female Cognitive needs: No Hearing needs: No Vision needs: No Meds Allergies Allergy/AdvReac Type Severity Reaction Status Date / Time muscle relaxer AdvReac Mild hives Uncoded 06/28/24 10:40 Home Medications ?Medication ?Instructions ?Recorded ?Confirmed ?Last Taken ?Type cetirizine 10 mg tablet (Zyrtec) 10 mg PO DAILY 11/03/20 06/26/24 02/16/21 07:00 History Exam Airway Mallampati Class: I TM Dist: <=3cm Neck ROM: Full Loose/Missing/Broken Teeth: No Heart: ok Lungs: ok Assessment and Plan Assessment Anesthesia Assessment: Anesthesia Plan Discussed Final Anesthetic Review NPO: Yes ASA Class: II Final Preanesthetic Review: No Changes in Pt Med Stat, Meds/Allgs Chart Reviewed, Consent Obtained/Reviewed and Anes Risks/Benef Reviewed Patient Risk: Low Procedure Risk: Low Anesthetic Plan Anesthetic Plan: GA and Agree w/ Assess. and Plan Disposition: Standard PACU
[2024-06-28 10:30] LABS: UPreg QC Valid YES; Urine Pregnancy NEGATIVE (NEGATIVE)
[2024-06-28] MEDS: Lactated Ringers 1,000 ML 100 ML IVCONT (10:32)
[2024-06-28 10:39] VITALS: BP 121/80; PULSE 81; RESP 18; TEMP 36.8; O2SAT 96
--- NOTE | 2024-06-28 11:14 | MHC.SHP ---
Pre-Procedural Eval Section A - 24 Hr Update-Section A only Date of Service: 06/28/24 The patient is an INPATIENT: No Changes since office visit: No Cold of Flu in the past 2 weeks, No New Medical Problems, No Changes in Medication and No Patient answered all questions The patient has been examined within 24 hours of the surgical procedure. The History & Physical has been completed within 30 days and I have reviewed it.: Yes Section B - Complete if H&P > 30 days Chief Complaint: Benign lipomatous neoplasm of skin and subcut Allergies: Allergies Allergy/AdvReac Type Severity Reaction Status Date / Time muscle relaxer AdvReac Mild hives Uncoded 06/28/24 10:40 Plan I have reviewed the history and physical and performed a pertinent physical examination on my patient. No changes have occurred unless specified. Time Spent With Patient Time: Total time managing care of this patient today ____ minutes.
--- NOTE | 2024-06-28 11:56 | P.OP_ITS ---
Operative Note Operative Note Date of Service: 06/28/24 Narrative: Preop diagnosis: Large lipoma, abdominal wall on the left upper quadrant Postop diagnosis: The same Procedure: Excision of a large lipoma from the abdominal wall under general anesthesia Surgeon: Tawanda Wilkes MD Global Sales Executive: Martin Herrmann MS 3 The patient is a 48-year-old female with a large lipoma on the abdominal wall in the left upper quadrant just below the ribcage. She understood the technique of excision under anesthesia. She was aware of the risks, benefits, and alternatives She was brought to the operating room. She was placed supine under general anesthesia via laryngeal mask airway. The left upper quadrant was prepped and draped in the usual sterile fashion. A surgical time-out was done. The patient received cefazolin 2 g IV preoperatively I infiltrated the planned line of incision with lidocaine 1%. I made a transverse incision on the skin overlying the lipoma with a blade 15. This was carried down with electrocautery through the full-thickness of the skin and subcutaneous fat until the lipomatous mass was visualized. I sharply dissected the lipoma off the rest of the subcutaneous layer and from the underlying fascia using Metzenbaum scissors. This was carried down circumferentially until the entire lipoma was completely . The lipoma measured 12 cm x 10 cm. This was sent as a specimen. I irrigated the area of the excision. I reapposed the deep subcutaneous layer with Polysorb 3-0 simple interrupted sutures. Skin closure was achieved with Polysorb 4-0 subcuticular running sutures. The area was infiltrated with Marcaine 0.5% for postop analgesia. Dressings were applied. The procedure was completed The patient tolerated the procedure well. There were no immediate complications. Initial and final counts of sponges and instruments were correct. Estimated blood loss was less than 25 cc The patient was extubated without difficulty and transferred to the recovery room with stable vital signs.
[2024-06-28 11:59] VITALS: BP 97/58; PULSE 58; RESP 16; TEMP 36.1; O2SAT 96
[2024-06-28 12:04] VITALS: BP 108/67; PULSE 54; RESP 16; O2SAT 96
[2024-06-28 12:10] VITALS: BP 104/74; PULSE 53; RESP 16; O2SAT 100
[2024-06-28 12:15] VITALS: BP 116/73; PULSE 50; RESP 16; O2SAT 99
[2024-06-28 12:30] VITALS: BP 106/45; BP 106/75; PULSE 51; PULSE 55; RESP 16; TEMP 36.2; O2SAT 98
== END 2024-06-28 13:49 | disposition home or self-care (01) ==
PROVIDERS: Nurse Practitioner; PCP Internal Medicine; Visit Provider Surgery
PROC: (CPT 22903; principal; 2024-06-28 11:50)
DX: D17.1 Benign lipomatous neoplasm of skin and subcutaneous tissue of trunk (principal); R73.01 Impaired fasting glucose; E55.9 Vitamin D deficiency, unspecified; E78.5 Hyperlipidemia, unspecified; K21.9 Gastro-esophageal reflux disease without esophagitis; K25.9 Gastric ulcer, unspecified as acute or chronic, without hemorrhage or perforation; K57.30 Diverticulosis of large intestine without perforation or abscess without bleeding; F32.A Depression, unspecified; Z80.41 Family history of malignant neoplasm of ovary; Z79.899 Other long term (current) drug therapy; Z88.8 Allergy status to other drugs, medicaments and biological substances; Z98.890 Other specified postprocedural states
CPT/HCPCS: 22903; 81025; 88304; J0690; J2003; J2704; J2795; J3010

== ENCOUNTER → 2024-06-28 10:01 | Outpatient (BNV) | payer OTHER, SELFPAY | PROVIDERS: PCP Internal Medicine; Visit Provider Surgery | DX: D17.1 Benign lipomatous neoplasm of skin and subcutaneous tissue of trunk (principal) | CPT/HCPCS: 22903 ==

== ENCOUNTER 2024-07-11 10:45 | Outpatient (AMB) | payer OTHER, SELFPAY ==
--- NOTE | 2024-07-11 10:58 | MHC.OFFVIS ---
Intake Visit Reasons: S/P exc. Lg lipoma abd. wall under anestheisa Intake Note: This patient presents for post-op assessment status post excision large lipoma abdominal wall. Pt c/o; no concerns. Surgery date: 06/28/24 Department Of Mathematics Chair Required: No Accompanied by: Self / Same As Patient Allergies muscle relaxer Adverse Reaction (Mild, Uncoded 07/11/24 10:59) hives HPI HPI S/P exc. Lg lipoma abd. wall under anestheisa: Details: She underwent excision of a large lipoma on the abdominal wall under anesthesia last 06/28/2024. She tolerated procedure well and currently denies significant complaints. [facility] Medical History Lipoma of abdominal wall Depression History of depression Diverticulosis BRCA negative Impaired fasting glucose Colon cancer screening Vitamin D deficiency Dyslipidemia Chronic GERD Gastric ulcer Family history of ovarian cancer Surgical History Hx of dilation and curettage H/O colonoscopy History of esophagogastroduodenoscopy (EGD) History of repair of anterior cruciate ligament of right knee Family History Mother Ovarian cancer Father Bladder cancer Alzheimer disease HTN (hypertension) Maternal Aunt Endometrium cancer Diabetes HTN (hypertension) Family/Other Breast cancer Paternal Uncle Heart attack Paternal Uncle Lung cancer Paternal Grandfather Stroke Maternal Grandfather Parkinsons disease Paternal Grandmother Diabetes Social History Housing: House Are you a primary med care manager to a significant other at home: No Do you presently have visiting nurse or other home services: No Alcohol intake: current Alcohol intake frequency: holidays/special occasions only Alcohol type: wine Patient Tobacco Use Status: Never used Tobacco e-Cigarette/Vaping Use: Never Used service: No Current occupational status: employed Sexual orientation: Lesbian/Granados/Homosexual Gender identity: Female Cognitive needs: No Hearing needs: No Vision needs: No Female Reproductive History Menstrual Age of Menarche: 15 Review of Systems Const Denies chills and Denies fever(s) Physical Exam Const General: comfortable and no acute distress Resp Effort & Inspection: normal respiratory effort GI Other: Incision on the upper abdominal wall is well healed, not infected Palpation (GI): Soft to palpation, not firm, nontender and no guarding Assessment & Plan Assessment & Plan (1) Lipoma of abdominal wall: Code(s): D17.1 - Benign lipomatous neoplasm of skin and subcutaneous tissue of trunk Category: Medical Plan: Status post excision. The incision is well healed. There was no evidence of any infection. Her path report confirms a lipoma. She can therefore follow up on a p.r.n. basis. Coding Level of Care Code Global (95914) Diagnoses Lipoma of abdominal wall D17.1
== END 2024-07-11 11:21 | disposition home or self-care (01) ==
PROVIDERS: PCP Internal Medicine; Visit Provider Surgery
DX: D17.1 Benign lipomatous neoplasm of skin and subcutaneous tissue of trunk (principal)
CPT/HCPCS: 99024

== ENCOUNTER → 2024-07-11 10:45 | Outpatient (BNVA) | payer OTHER, SELFPAY | PROVIDERS: PCP Internal Medicine; Visit Provider Surgery ==

== ENCOUNTER 2024-10-18 07:50 | Outpatient (REF) | payer OTHER, SELFPAY ==
[2024-10-18 10:12] LABS: Hematocrit 38.4 % (37.0-47.0); Hemoglobin 12.7 g/dl (12.0-16.0)
[2024-10-18 10:42] LABS: Alanine Aminotransferase 18 U/L (0-31); Aspartate Amino Transferase 27 U/L (5-31); Cholesterol 230 mg/dL (<200); Glucose Fasting 97 mg/dL (60-99); HDL Cholesterol 60 mg/dL (>40); LDL Cholesterol Calculated 144 mg/dL (<100); Triglycerides 132 mg/dL (<150)
[2024-10-18 10:50] LABS: Vitamin D 25-OH Total 33.7 ng/mL (>30)
== END 2024-10-18 07:51 | disposition home or self-care (01) ==
LOC: HO.HMGCLDS 07:50
PROVIDERS: PCP Internal Medicine; Visit Provider Internal Medicine
DX: D25.9 Leiomyoma of uterus, unspecified (principal); R73.01 Impaired fasting glucose; E78.5 Hyperlipidemia, unspecified; K21.9 Gastro-esophageal reflux disease without esophagitis; E55.9 Vitamin D deficiency, unspecified
CPT/HCPCS: 36415; 80061; 82306; 82947; 84450; 84460; 85014; 85018

== ENCOUNTER 2024-10-21 08:30 | Outpatient (AMB) | payer OTHER, SELFPAY ==
--- NOTE | 2024-10-21 08:42 | MHC.PC.OV ---
Vital Signs 10/21/24 08:50 Height 5 ft 8 in Weight 201 lb BMI 30.6 BP 100/68 Blood Pressure Location Rt brachial Position Sitting Respiration 16 Pulse 82 Pulse Source Pulse Oximeter Temp 98.0 F Temp Source Oral Pulse Oximetry (%) 96 Oxygen Delivery Method Room Air Intake Visit Reasons: Annual PE Intake Note: Pt is here today for her PE: Last mammogram 05/23/24, papsmear 04/04/23, colonoscopy 05/05/23 Allergies muscle relaxer Adverse Reaction (Mild, Uncoded 10/21/24 09:07) hives Medication List - Last Reconciled 10/21/24 by Maria Del Rosario Bray MD cetirizine (Zyrtec) 10 mg PO DAILY escitalopram oxalate 10 mg PO DAILY famotidine (Pepcid) 20 mg PO BEDTIME pantoprazole 40 mg PO QAM Tobacco use date assessed: 10/21/24 Dental Screening Dental Screen Date: 10/21/24 Did you have a dental visit in the last 12 months?: Yes Did you have a dental problem in the last 6 months where you did not have access to dental care?: Yes Was dental information given to patient?: Patient has dentist HPI Annual PE HPI Details 48-year-old lady with history dyslipidemia, abnormal uterine bleeding complex ovarian cyst, IBS, hiatal hernia, history of gastritis, chronic GERD , here today for physical exam. She is up-to-date with her screening mammogram, last done 05/23/2024 with benign findings, had her cervical cancer screening done 04/04/2023, sees Dr. Muñoz. She has positive family history for ovarian cancer had genetic testing done by rn shift mgr Oncology, came back negative. She had an upper endoscopy done by Dr. Schneider as well as a screening colonoscopy in 2022, which showed presence of via hernia, gastritis, and diverticulosis currently taking pantoprazole 12 40 mg in the morning and famotidine 20 mg at bedtime, which has been helping control her heartburn symptoms. Currently takes escitalopram 10 mg once a day which has been helping control her depression symptoms [facility] Medical History (Updated 10/21/24 @ 09:27 by Maria Del Rosario Bray MD) Lipoma of abdominal wall Depression History of depression Diverticulosis BRCA negative Impaired fasting glucose Colon cancer screening Vitamin D deficiency Dyslipidemia Chronic GERD Gastric ulcer Family history of ovarian cancer Surgical History Hx of dilation and curettage H/O colonoscopy History of esophagogastroduodenoscopy (EGD) History of repair of anterior cruciate ligament of right knee Family History Mother Ovarian cancer Father Bladder cancer Alzheimer disease HTN (hypertension) Maternal Aunt Endometrium cancer Diabetes HTN (hypertension) Family/Other Breast cancer Paternal Uncle Heart attack Paternal Uncle Lung cancer Paternal Grandfather Stroke Maternal Grandfather Parkinsons disease Paternal Grandmother Diabetes Social History Housing: House Are you a primary field care coordinator to a significant other at home: No Do you presently have visiting nurse or other home services: No Alcohol intake: current Alcohol intake frequency: holidays/special occasions only Alcohol type: wine Patient Tobacco Use Status: Never used Tobacco e-Cigarette/Vaping Use: Never Used service: No Current occupational status: employed Sexual orientation: Lesbian/Granados/Homosexual Gender identity: Female Cognitive needs: No Hearing needs: No Vision needs: No Female Reproductive History Menstrual Age of Menarche: 15 Questionnaire PHQ-9 Over the last 2 weeks, how often have you been bothered by any of the following problems? 1. Little interest or pleasure in doing things: not at all 2. Feeling down, depressed, or hopeless: not at all 3. Trouble falling or staying asleep, or sleeping too much: not at all 4. Feeling tired or having little energy: not at all 5. Poor appetite or overeating: not at all 6. Feeling bad about yourself - or that you are a failure or have let yourself or your family down: not at all 7. Trouble concentrating on things, such as reading the newspaper or watching television: not at all 8. Moving or speaking so slowly that other people could have noticed. Or the opposite - being so fidgety or restless that you have been moving around a lot more than usual: not at all 9. Thoughts that you would be better off or of hurting yourself in some way: not at all Total score: 0 Depression Screening Interpretation: Negative (Depression controlled with escitalopram 10 mg daily) Depression Screening Done: Yes 60357 - PHQ-9 Billing: Yes Source: Developed by Drs. Abhinav Nunes, Amalia Yuan, Romel Gandhi and colleagues, with an educational keshav from [employer]. Thrive Questionnaire Date Thrive assessed: 10/18/24 I am a: Patient What is your living situation today?: I have a steady place to live Within the past 12 months, did the food you bought not last and you didn't have the money to get more?: Never true Within the past 12 months, did you worry whether your food would run out before you got money to buy more?: Never true Do you have trouble paying for medicines?: No Do you have trouble getting transportation to medical appointments?: No Do you have trouble paying your heating and electricity bill?: No Do you have trouble taking care of your child, family member or friend?: No Do you have trouble with day-to-day activities such as bathing, preparing meals, shopping, managing finances, etc.?: No Are you currently unemployed and looking for a job?: No Are you interested in more education?: No Please select the resources that you would like help with: None Currently or been in a relationship where the following occur: No concerns reported THRIVE Score: 0 AUDIT C Alcohol Use Questionnaire (AUDIT-C) 1. How often do you have a drink containing alcohol?: 2-3 times a week 2. How many drinks containing alcohol do you have on a typical day when you are drinking?: 1 or 2 3. How often do you have six or more drinks on one occasion?: Never Total Score: 3 LAUREN-7 AMB Questionnaire LAUREN-7 Date LAUREN - 7 assessed: 10/21/24 Feeling nervous, anxious, or on edge: 0 = Not at all Not being able to stop or control worryin = Not at all Worrying too much about different things: 0 = Not at all Trouble relaxin = Not at all Being so restless that it is hard to sit still: 0 = Not at all Becoming easily annoyed or irritable: 0 = Not at all Feeling afraid as if something awful might happen: 0 = Not at all Total LAUREN-7 score (0-4 normal; 5-9 mild; 10-14 moderate; 15-21 severe): 0 Source: Developed by Drs. Abhinav Nunes, Amalia Yuan, Romel Gandhi and colleagues, with an educational keshav from [employer]. LAUREN-7 Assessment Billing LAUREN-7 Assessment Tool: LAUREN-7 Assessment 57342 Review of Systems Const Denies body aches, Denies headache(s), Denies lethargy, Denies malaise and Denies poor appetite ENT Denies headache(s) Card Denies chest pain, Denies irregular heart rhythm, Denies lightheadedness and Denies dyspnea Resp Denies cough and Denies dyspnea GI Denies abdominal pain, Denies change in bowel habits and Denies heartburn Reports no additional complaints Musc Reports no additional complaints Skin/Breast Denies breast swelling, Denies breast pain, Denies breast mass and Denies rash Neuro Denies headache(s) Psych Reports as per HPI Endo Reports no additional complaints Eriberto/Lymph Reports no additional complaints Aller/Immun Reports no additional complaints Physical exam (Primary Care) Vital Signs: Last Vital Signs Temp 98.0 F 10/21/24 08:50 Pulse 82 10/21/24 08:50 Resp 16 10/21/24 08:50 BP 100/68 10/21/24 08:50 Pulse Ox 96 10/21/24 08:50 Oxygen Delivery Method Room Air 10/21/24 08:50 BMI result Body Mass Index 30.6 Tobacco/Smoking Status: Tobacco use Status Tobacco use date assessed 10/21/24 10/21/24 08:53 Patient Tobacco Use Status Never used Tobacco 10/21/24 08:45 e-Cigarette/Vaping Use Never Used 10/21/24 08:45 PHQ-9: PHQ-9 Score PHQ-9: Total score 0 10/21/24 09:05 Depression Screening Interpretation: Negative (Depression controlled with escitalopram 10 mg daily) Thrive Assessment: Date of Thrive Assessment Date Thrive assessed 10/18/24 10/21/24 08:45 Currently or been in a relationship where the following occur: No concerns reported Advance Care Planning discussion: Completed/Scanned Date of discussion: 10/21/24 Who was present: Patient Forms completed: Health Care Proxy Time spent: 16-45 minutes Actual minutes spent: 2 Const General: no acute distress and alert Orientation/consciousness: patient oriented x3 HENMT Head: Yes normocephalic and Yes atraumatic Ears: external ears normal, TM's normal bilaterally and EAC's normal General nose exam: Normal external nose present and No nasal discharge present Face and sinus: Yes face symmetric Mouth: Normal oral and palatal mucosa present, lip normal, tongue normal, oropharynx normal and moist mucous membranes Eyes General: appearance normal, both eyes and all related structures Conjunctivae: conjunctivae normal Sclerae: sclerae normal Pupils: Equal, round and reactive pupils present EOM: EOMs intact bilaterally Neck Neck: Yes full ROM, Yes no lymphadenopathy and Yes supple Thyroid: Thyroid normal Chest Chest palpation & inspection: normal inspection of the chest and normal palpation of entire chest wall Breast/axilla palpation: normal palpation of the breasts Resp Effort & Inspection: normal respiratory effort and able to speak in complete sentences Auscultation: clear to auscultation bilaterally Cardio Rate: regular rate Rhythm: regular rhythm Heart sounds: S1 normal heart sound present and S2 normal heart sound present GI Palpation (GI): Soft to palpation, nontender, no guarding and no masses Auscultation: normal bowel sounds General: Yes no CVA tenderness Back/Spine/Pelvis Back: no CVA tenderness and No back tenderness Skin General skin exam: no rashes or lesions noted Neuro General: patient oriented x3, gait normal, moves all extremities, Normal light touch and pain sensation, no focal motor deficits and CN's II-XI intact bilaterally Cranial nerves: Yes Equal, round and reactive pupils present Cognition (Neuro): normal cognition Gait exam (Neuro): Normal gait present Motor exam (neuro): 5/5 motor strength present throughout Extrem General: Yes normal to inspection, Yes full ROM, Yes no joint enlargement, Yes no pedal edema and Yes normal gait Psych Appearance: grossly normal and well kempt Mental Status: mental status grossly normal Speech and movement: Normal speech and movement present Affect: normal affect Attitude: cooperative Thought process: Normal thought process present Thought content: Normal thought content present Results Reviewed Results Reviewed: Laboratory Tests 10/18/24 07:58 Hgb 12.7 Hct 38.4 Name: Etelvina Terry Age/Sex: 48/F : 1975 Unit#: [id number] Attend Dr: Maria Del Rosario Bray MD Re10/18/24 Status: DEP [facility] Disch: SPEC : [id number] JONNA: 10/18/24 STATUS: COMP REQ : [id number] RECD: 10/18/24-[address]: Maria Del Rosario Bray MD COMP: 10/18/24-1049 ENTERED: 10/18/[address]: ORDERED: Glu Fasting, AST, ALT, Lipid Panel, Vitamin D 25-OH Test Result Flag Reference FBS 97 60-99 mg/dL AST (GOT) 27 5-31 U/L ALT (GPT) 18 0-31 U/L Triglyceride 132 <150 mg/dL Desirable Triglyceride: less than 150 mg/dL Borderline High Triglyceride 150-199 mg/dL High Triglyceride: 200-499 mg/dL Very High Triglyceride: greater than or equal to 5OO mg/dL Cholesterol 230 H <200 mg/dL Desirable Cholesterol: less than 200 mg/dL Borderline High Cholesterol: 200-239 mg/dL High Cholesterol: greater than 239 mg/dL LDL Calculated 144 H <100 mg/dL Desirable LDL: less than 100 mg/dL Near Optimal/Above Optimal LDL: 110-129 mg/dL Borderline High LDL: 130-159 mg/dL High LDL: 160-189 mg/dL Very High LDL: greater than or equal to 190 mg/dL HDL 60 >40 mg/dL Desirable HDL: greater than 40 mg/dL Note: This HDL assay may give artificially low results in patients with liver disease. Vitamin D 25-OH 33.7 >30 ng/mL Health Based Reference Values* < 20 ng/mL Deficient 20-30 ng/mL Insufficient > 30 ng/mL Sufficient Coding Level of Care Code Est Pt Prev Care 40-64y(58825) Diagnoses Annual visit for general adult medical examination with abnormal findings Z00.01 Complex ovarian cyst N83.299 Irritable bowel syndrome with constipation K58.1 Irritable bowel syndrome type: with constipation Major depressive disorder in full remission, unspecified whether recurrent F32.5 Depression Type: major depressive disorder Major depression recurrence: unspecified whether recurrent Active/Remission status: in full remission Impaired fasting glucose R73.01 Dyslipidemia E78.5 Chronic GERD K21.9 Advanced directives, counseling/discussion Z71.89 Additional Codes PHQ-9 - 46813 - PHQ-9 Billing: Yes ([id number]) LAUREN-7 Assessment Billing - LAUREN-7 Assessment Tool: LAUREN-7 Assessment 13633 ([id number]) Vital Signs *Quality* - Advance Care Planning discussion: Completed/Scanned ([id number]) Vital Signs *Quality* - Time spent: 16-45 minutes ([id number]) Assessment & Plan Assessment & Plan (1) Annual visit for general adult medical examination with abnormal findings: Code(s): Z00.01 - Encounter for general adult medical examination with abnormal findings Plan: Reviewed recent fasting lab results with patient. Recommended dental visit every 6 months and regular eye exams, at least every 2 years. Take adequate calcium in diet and vitamin-D 3 at 2000 IU per cap once a day, in addition to weight-bearing exercises to help maintain good muscle tone and weight control. Instructed to do self-breast exam, and r continue to get yearly mammogram, sees Dr. Muñoz for her routine Pap and pelvic exam. 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 Muñoz, currently asymptomatic, continued observation (3) IBS (irritable bowel syndrome): Code(s): K58.9 - Irritable bowel syndrome, unspecified Category: Medical Qualifiers: Irritable bowel syndrome type: with constipation Qualified Code(s): K58.1 - Irritable bowel syndrome with constipation Plan: Continue pantoprazole and famotidine as needed, follows FODMAP diet, (4) Depression: Code(s): F32.A - Depression, unspecified Category: Medical Qualifiers: Depression Type: major depressive disorder Major depression recurrence: unspecified whether recurrent Active/Remission status: in full remission Qualified Code(s): F32.5 - Major depressive disorder, single episode, in full remission Plan: Controlled on escitalopram 10 mg daily, continue with current dose (5) Impaired fasting glucose: Code(s): R73.01 - Impaired fasting glucose Category: Medical Plan: Your previous fasting blood sugars were elevated above 100 mg/dL. Impaired glucose metabolism increases the risk for developing diabetes mellitus type 2, as well as heart attack and stroke later on. Lifestyle changes that promotes weight loss, healthy eating habits, and regular exercise are important, and can prevent the progression to diabetes (6) Dyslipidemia: Code(s): E78.5 - Hyperlipidemia, unspecified Category: Medical Plan: Reviewed recent fasting lipid profile with patient with improvement in triglyceride levels but LDL cholesterol still remains above normal level, with good HDL cholesterol level . Continueadherence to low-cholesterol diet and regular exercise, at least 30 minutes 3 to 4 times a week. Advised patient to make healthy food choices, eat more fruits, vegetables, whole grains, wild caught fish and low-fat dairy. Limit amount of meat and fried or fatty food products, as well as processed foods and fast foods. (7) Chronic GERD: Code(s): K21.9 - Gastro-esophageal reflux disease without esophagitis Category: Medical Plan: Continue on pantoprazole 40 mg daily in the morning and famotidine 20 mg at night, avoidance of triggers for heartburn do not lie down right away after eating (8) Advanced directives, counseling/discussion: Code(s): Z71.89 - Other specified counseling Plan: Initiated the conversation about Advanced Directives. Advanced Directives help patients prepare for current and future decisions about their medical treatment and place of care. Discussed with patient that it is a process where a patients current condition and prognosis are reviewed, their wishes for information regarding their illness are elicited, and likely medical dilemmas are presented and options discussed. Healthcare proxy form completed today. The form can be amended as needed, reviewed yearly and make changes as needed Orders: Orders Lipid Panel 1 Year E55.9 - Vitamin D deficiency, unspecified, E78.5 - Hyperlipidemia, unspecified, F32.5 - Major depressive disorder, single episode, in full remission, K21.9 - Gastro-esophageal reflux disease without esophagitis, K58.1 - Irritable bowel syndrome with constipation, R73.01 - Impaired fasting glucose Basic Metabolic Panel Fasting 1 Year E55.9 - Vitamin D deficiency, unspecified, E78.5 - Hyperlipidemia, unspecified, F32.5 - Major depressive disorder, single episode, in full remission, K21.9 - Gastro-esophageal reflux disease without esophagitis, K58.1 - Irritable bowel syndrome with constipation, R73.01 - Impaired fasting glucose Vitamin D 25-OH Total 1 Year E55.9 - Vitamin D deficiency, unspecified, E78.5 - Hyperlipidemia, unspecified, F32.5 - Major depressive disorder, single episode, in full remission, K21.9 - Gastro-esophageal reflux disease without esophagitis, K58.1 - Irritable bowel syndrome with constipation, R73.01 - Impaired fasting glucose Aspartate Amino Transferase 1 Year E55.9 - Vitamin D deficiency, unspecified, E78.5 - Hyperlipidemia, unspecified, F32.5 - Major depressive disorder, single episode, in full remission, K21.9 - Gastro-esophageal reflux disease without esophagitis, K58.1 - Irritable bowel syndrome with constipation, R73.01 - Impaired fasting glucose Alanine Aminotransferase 1 Year E55.9 - Vitamin D deficiency, unspecified, E78.5 - Hyperlipidemia, unspecified, F32.5 - Major depressive disorder, single episode, in full remission, K21.9 - Gastro-esophageal reflux disease without esophagitis, K58.1 - Irritable bowel syndrome with constipation, R73.01 - Impaired fasting glucose Hemoglobin A1c 1 Year E55.9 - Vitamin D deficiency, unspecified, E78.5 - Hyperlipidemia, unspecified, F32.5 - Major depressive disorder, single episode, in full remission, K21.9 - Gastro-esophageal reflux disease without esophagitis, K58.1 - Irritable bowel syndrome with constipation, R73.01 - Impaired fasting glucose
[2024-10-21 08:50] VITALS: BP 100/68; PULSE 82; RESP 16; TEMP 36.7; O2SAT 96; BMI 30.6
--- OUTSIDE RECORDS SUMMARY | 2024-10-21 08:51 | XMS_ITS | Data Portability ---
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 Plan of Treatment Reminders Order Date Submit Date Provider Last Modified By Organization Details Last Modified Time Details Appointments None recorded. Lab hepatitis C virus Ab, serum 2019 020 [facility], [address] [place] [address], [address], 0 15:45:04 vitamin D, 25-hydroxy , total, serum 2019 020 [facility], [address] [place] [address], [address], 0 15:09:45 lipid panel, serum 2019 020 [facility], [address] [place] [address], [address], 0 17:08:00 CMP, serum or plasma 2019 020 [facility], [facility] [place], [address], 0 17:08:01 CBC w/ auto diff 2019 [facility], [address] [place] [address] [place], [address], 0 14:37:46 TSH, serum or plasma 2019 020 [facility], [address] [place], [address], 0 17:08:02 HbA1c (hemoglobi n A1c), blood 2019 020 [facility], [address] [place], [address], 0 15:17:28 culture, urine 2018 019 [facility], [address] [place], [address], 9 04:07:11 urinalysis , complete 2018 019 [facility], [address] [place], [address], 9 08:17:54 lipid panel, serum 2018 019 [facility], [address] [place], [address], 9 07:12:34 CMP, serum or plasma 2018 019 [facility], [address] [place], [address], 9 07:12:35 CBC w/ auto diff 2018 019 [facility], [place], [address], 9 07:12:32 TSH, serum or plasma 2018 019 [facility], [address] [place], [address], 9 07:12:33 vitamin D, 25-hydroxy , total, serum 2018 019 [facility], [address] [facility], [place], [address], 9 07:12:37 HbA1c (hemoglobi n A1c), blood 2018 019 [facility], [address] [facility], [place], [address], 9 07:12:36 Referral behavioral health referral - Referral for behavioral health evaluation - october schedule with any available behavioral health provider 2019 020 [facility], [address] [place] [address], [address], 1 13:54:[address] referral 2019 020 barbara Dyson MD, [address] [place], [address], 1 14:16:16 Procedures None recorded. Surgeries None recorded. Imaging MAMMO, screening, digital, bilateral 2019 [facility], [address] [facility], [place], [address], 0 15:21:43 Medication Orders escitalopr am 10 mg tablet 2019 020 [facility][id number], [address] [place], [place], [id number], 0 10:08:13 nitrofuran toin monohydrat e/macrocry stals 100 mg capsule 2018 019 [email or web address] [address] [facility] #[id number], [address] [place], [place], [id number], 0 14:29:46 Augmentin 875 mg-125 mg tablet 2017 018 [id number], [address] [facility], [place], [place], [id number], 9 10:19:50 Patient TargetsNo targets recorded. 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 neoplasm of cervix Referring Physician: Jo Ann Cast, Internal Medicine, Encounter Date: 03/10/2020 Behavioral Health Referral f or Depressive disorder depression - CBT Referral for behavioral health evaluation - october schedule with any available behavioral health provider Referring Physician: Jo Ann Cast, Internal Medicine, Encounter Date: 06/02/2020 Results Created Date Observation Date Name Description Value Unit Range Abnormal Flag Note LastModifiedBy Organization Detail LastModifiedTime 10/18/19 19 10/18/2018 CBC w/ auto diff WBC 7.1 x10e3 /uL 3.4-10 .8 normal Not Available [facility] [address] [place], [address], 10/18/2018 07:12:31 10/18/19 19 10/18/2018 CBC w/ auto diff RBC 4.36 x10e6 /uL 3.77-5 .28 normal Not Available [facility] [address] [place], [address], 10/18/2018 07:12:31 10/18/19 19 10/18/2018 CBC w/ auto diff hemoglobin 12.8 g/dL 11.1-1 5.9 normal Not Available [facility] [address] [place], [address], 10/18/2018 07:12:31 10/18/19 19 10/18/2018 CBC w/ auto diff hematocrit 38.2 % 34.0-4 6.6 normal Not Available [facility] [address] [place], [address], 10/18/2018 07:12:31 10/18/19 19 10/18/2018 CBC w/ auto diff MCV 88 fL 79-97 normal Not Available [facility] [address] [place], [address], 10/18/2018 07:12:31 10/18/19 19 10/18/2018 CBC w/ auto diff MCH 29.4 pg 26.6-3 3.0 normal Not Available [facility] [address] [place], [address], 10/18/2018 07:12:31 10/18/1910/18/2018 CBC w/ auto diff MCHC 33.5 g/dL 31.5-3 5.7 normal Not Available [facility] [address] [place], [address], 10/18/2018 07:12:31 10/18/19 19 10/18/2018 CBC w/ auto diff RDW 13.3 % 12.3-1 5.4 normal Not Available [facility] [address] [place], [address], 10/18/2018 07:12:31 10/18/19 19 10/18/2018 CBC w/ auto diff platelets 257 x10e3 /uL 150-37 9 normal Not Available [facility] [address] [place], [address], 10/18/2018 07:12:31 10/18/1910/18/2018 CBC w/ auto diff neutrophils 67 % not estab. normal Not Available [facility] [address] [place], [address], 10/18/2018 07:12:31 10/18/1910/18/2018 CBC w/ auto diff lymphs 21 % not estab. normal Not Available [facility] [address] [place], [address], 10/18/2018 07:12:31 10/18/1910/18/2018 CBC w/ auto diff monocytes 9 % not estab. normal Not Available [facility] [address] [place], [place] [address] [place], [address], 10/18/2018 07:12:31 10/18/19 19 10/18/2018 CBC w/ auto diff eos 3 % not estab. normal Not Available [facility] [address] [place] [address], [address], 10/18/2018 07:12:31 10/18/1910/18/2018 CBC w/ auto diff basos 0 % not estab. normal Not Available [facility] [address] [place] [address], [address], 10/18/2018 07:12:31 10/18/1910/18/2018 CBC w/ auto diff neutrophils (absolute) 4.7 x10e3 /uL 1.4-7. 0 normal Not Available [facility] [address] [place], [place] [address], [address], 10/18/2018 07:12:31 10/18/1910/18/2018 CBC w/ auto diff lymphs (absolute) 1.5 x10e3 /uL 0.7-3. 1 normal Not Available [facility] [address] [place] [address], [address], 10/18/2018 07:12:31 10/18/1910/18/2018 CBC w/ auto diff monocytes(ab solute) 0.6 x10e3 /uL 0.1-0. 9 normal Not Available [facility] [address] [place] [address], [address], 10/18/2018 07:12:31 10/18/1910/18/2018 CBC w/ auto diff eos (absolute) 0.2 x10e3 /uL 0.0-0. 4 normal Not Available [facility] [address] [place] [address], [address], 10/18/2018 07:12:31 10/18/1910/18/2018 CBC w/ auto diff baso (absolute) 0.0 x10e3 /uL 0.0-0. 2 normal Not Available [facility] [address] [place], [address], 10/18/2018 07:12:31 10/18/1910/18/2018 CBC w/ auto diff immature granulocytes 0 % not estab. normal Not Available [facility] [address] [place], [address], 10/18/2018 07:12:31 10/18/1910/18/2018 CBC w/ auto diff immature grans (abs) 0.0 x10e3 /uL 0.0-0. 1 normal Not Available [facility] [place], [address], 10/18/2018 07:12:31 10/18/1910/18/2018 TSH, serum or plasm a TSH 2.240 uIU/m L 0.450- 4.500 normal Not Available [facility] [address] [place], [address], 10/18/2018 07:12:33 10/18/1910/18/2018 lipid panel , serum cholesterol, total 231 mg/dL 100-19 9 high Not Available [facility] [place], [address], 10/18/2018 07:12:34 10/18/1910/18/2018 lipid panel , serum triglyceride s 127 mg/dL 0-149 normal Not Available [facility] [address] [place], [address], 10/18/2018 07:12:34 10/18/1910/18/2018 lipid panel , serum HDL cholesterol 63 mg/dL >39 normal Not Available [facility] [address] [place], [address], 10/18/2018 07:12:34 10/18/19 19 10/18/2018 lipid panel , serum VLDL cholesterol jocelyn 25 mg/dL 5-40 normal Not Available [place] [address] [place], [address], 10/18/2018 07:12:34 10/18/19 19 10/18/2018 lipid panel , serum LDL cholesterol calc 143 mg/dL 0-99 high Not Available [place] [address] [place], [address], 10/18/2018 07:12:34 10/18/1910/18/2018 lipid panel , serum LDL/HDL ratio 2.3 ratio 0.0-3. 2 normal LDL/H DL Ratio Men Women 1/2 Avg.R isk 1.0 1.5 Avg.R isk 3.6 3.2 2X Avg.R isk 6.2 5.0 3X Avg.R isk 8.0 6.1 Not Available [facility] [place], [address], 10/18/2018 07:12:34 10/18/1910/18/2018 CMP, serum or plasm a glucose 93 mg/dL 65-99 normal Not Available [facility] [place], [address], 10/18/2018 07:12:35 10/18/1910/18/2018 CMP, serum or plasm a BUN 16 mg/dL 6-24 normal Not Available [facility] [place], [address], 10/18/2018 07:12:35 10/18/1910/18/2018 CMP, serum or plasm a creatinine 0.77 mg/dL 0.57-1 .00 normal Not Available [facility] [place], [address], 10/18/2018 07:12:35 10/18/1910/18/2018 CMP, serum or plasm a eGFR if nonafricn AM 97 mL/mi n/1.7 3 >59 normal Not Available [facility] [address] [place], [address], 10/18/2018 07:12:35 10/18/19 19 10/18/2018 CMP, serum or plasm a eGFR if africn AM 112 mL/mi n/1.7 3 >59 normal Not Available [facility] [place], [address], 10/18/2018 07:12:35 10/18/19 19 10/18/2018 CMP, serum or plasm a BUN/creatini ne ratio 21 9-23 normal Not Available [facility] [place], [address], 10/18/2018 07:12:35 10/18/19 19 10/18/2018 CMP, serum or plasm a sodium 138 mmol/ L 134-14 4 normal Not Available [facility] [place], [address], 10/18/2018 07:12:35 10/18/1910/18/2018 CMP, serum or plasm a potassium 4.2 mmol/ L 3.5-5. 2 normal Not Available [facility] [address] [place], [address], 10/18/2018 07:12:35 10/18/1910/18/2018 CMP, serum or plasm a chloride 101 mmol/ L 96-106 normal Not Available [facility] [address] [place], [address], 10/18/2018 07:12:35 10/18/1910/18/2018 CMP, serum or plasm a carbon dioxide, total 22 mmol/ L 20-29 normal Not Available [facility] [address] [place], [address], 10/18/2018 07:12:35 10/18/1910/18/2018 CMP, serum or plasm a calcium 9.4 mg/dL 8.7-10 .2 normal Not Available [facility] [address] [place], [address], 10/18/2018 07:12:35 10/18/1910/18/2018 CMP, serum or plasm a protein, total 7.1 g/dL 6.0-8. 5 normal Not Available [facility] [place], [address], 10/18/2018 07:12:35 10/18/1910/18/2018 CMP, serum or plasm a albumin 4.4 g/dL 3.5-5. 5 normal Not Available [facility] [place], [address], 10/18/2018 07:12:35 10/18/1910/18/2018 CMP, serum or plasm a globulin, total 2.7 g/dL 1.5-4. 5 normal Not Available [facility] [address] [place], [address], 10/18/2018 07:12:35 10/18/1910/18/2018 CMP, serum or plasm a A/G ratio 1.6 1.2-2. 2 normal Not Available [facility] [place], [address], 10/18/2018 07:12:35 10/18/1910/18/2018 CMP, serum or plasm a bilirubin, total 0.3 mg/dL 0.0-1. 2 normal Not Available [facility] [place], [address], 10/18/2018 07:12:35 10/18/1910/18/2018 CMP, serum or plasm a alkaline phosphatase 56 IU/L 39-117 normal Not Available [facility] [place], [address], 10/18/2018 07:12:35 10/18/1904 1110/18/2018 CMP, serum or plasm a AST (SGOT) 21 IU/L 0-40 normal Not Available [facility] [address] [place], [address], 10/18/2018 07:12:35 10/18/19 19 10/18/2018 CMP, serum or plasm a ALT (SGPT) 18 IU/L 0-32 normal Not Available [facility] [address] [place], [address], 10/18/2018 07:12:35 10/18/1910/18/2018 HbA1c (hemo globi n A1c), blood hemoglobin A1C 5.6 % 4.8-5. 6 normal Predi abete s: 5.7 - 6.4 Diabe farshad: >6.4 Glyce raquel contr ol for adult s with diabe farshad: <7.0 Not Available [facility] [address] [place], [address], 10/18/2018 07:12:36 10/18/19 19 10/18/2018 vitam in D, 25-hy droxy , total , serum vitamin D, 25-hydroxy 19.7 NG/mL 30.0-1 00.0 low Vitam in D defic iency has been defin ed by the Insti tute of Medic ine and an Endoc rine Socie ty pract ice guide line as a level of serum 25-OH vitam in D less than 20 ng/mL (1,2) . The Endoc rine Socie ty went on to [facility] er defin e vitam in D insuf ficie ncy as a level betwe en 21 and 29 ng/mL (2). 1. IOM (Inst itute of Medic ine). 2010. Dieta ry refer ence otoniel es for calci um and D. Nora church [place]: The Natio nal [facility] Press . 2. Jaye sánchez [place], Keisha toussaint [place], Carolee off-F errar i [place], et al. Evalu ation , treat ment, and preve ntion of vitam in D defic iency : an Endoc rine Socie ty clini jocelyn pract ice guide line. JCEM. 2010; 96(3) :1911 -30. Not Available [facility] [address] [place], [address], 10/18/2018 07:12:37 11/16/19 19 11/16/2018 urina lysis , compl ete specific gravity 1.009 1.005- 1.030 normal Not Available [facility] [address] [place], [address], 11/16/2018 08:17:54 11/16/19 19 11/16/2018 urina lysis , compl ete pH 7.0 5.0-7. 5 normal Not Available [facility] [address] [place], [address], 11/16/2018 08:17:54 11/16/1911/16/2018 urina lysis , compl ete urine-color Yellow yellow normal Not Available [facility] [address] [place], [address], 11/16/2018 08:17:54 11/16/1911/16/2018 urina lysis , compl ete appearance Clear clear normal Not Available [facility] [address] [place], [address], 11/16/2018 08:17:54 11/16/1911/16/2018 urina lysis , compl ete WBC esterase Trace negati ve abnormal Not Available [facility] [address] [place], [address], 11/16/2018 08:17:54 11/16/1911/16/2018 urina lysis , compl ete protein Negati ve negati ve/tra ce normal Not Available [facility] [address] [place], [address], 11/16/2018 08:17:54 11/16/1911/16/2018 urina lysis , compl ete glucose Negati ve negati ve normal Not Available [facility] [address], [place], [address], 11/16/2018 08:17:54 11/16/1911/16/2018 urina lysis , compl ete ketones Negati ve negati ve normal Not Available [facility] [address], [place], [address], 11/16/2018 08:17:54 11/16/19 19 11/16/2018 urina lysis , compl ete occult blood Negati ve negati ve normal Not Available [facility] [address] [place], [address], 11/16/2018 08:17:54 11/16/1911/16/2018 urina lysis , compl ete bilirubin Negati ve negati ve normal Not Available [facility] [address] [place], [address], 11/16/2018 08:17:54 11/16/19 19 11/16/2018 urina lysis , compl ete urobilinogen ,semi-qn 0.2 eu/dL 0.2-1. 0 normal Not Available [facility] [address] [place], [address], 11/16/2018 08:17:54 11/16/1911/16/2018 urina lysis , compl ete nitrite, urine Negati ve negati ve normal Not Available [facility] [address] [place], [address], 11/16/2018 08:17:54 11/16/1911/16/2018 urina lysis , compl ete microscopic examination See below: normal Not Available [facility] [address], [address], 11/16/2018 08:17:54 11/16/19 19 11/16/2018 urina lysis , compl ete WBC 6-10 /hpf 0 - 5 abnormal Not Available [facility] [address] [place], [address], 11/16/2018 08:17:54 11/16/1911/16/2018 urina lysis , compl ete RBC None seen /hpf 0 - 2 normal Not Available [facility] [address] [place], [address], 11/16/2018 08:17:54 11/16/19 19 11/16/2018 urina lysis , compl ete epithelial cells (non renal) 0-10 /hpf 0 - 10 normal Not Available [facility] [address] [place], [address], 11/16/2018 08:17:54 11/16/19 19 11/16/2018 urina lysis , compl ete bacteria Few none seen/f ew normal Not Available [facility] [address] [place], [address], 11/16/2018 08:17:54 11/16/19 19 11/17/2018 cultu re, urine urine culture, routine Final report normal Not Available [facility] [address] [place], [address], 11/17/2018 04:07:11 11/16/1911/17/2018 cultu re, urine result 1 No growth normal Not Available [facility] [address] [place], [address], 11/17/2018 04:07:11 04/07/2004/07/2020 CBC w/ auto diff white blood cells 5.7 10^3/ uL 3.3-9. 4 Not Available [facility] [address] [place], [address], 04/07/2020 14:37:46 04/07/2004/07/2020 CBC w/ auto diff red blood cells 4.24 10^6/ uL 3.87-5 .15 Not Available [facility] [address] [place], [address], 04/07/2020 14:37:46 04/07/2004/07/2020 CBC w/ auto diff hemoglobin 12.6 g/dL 11.1-1 5.0 Not Available [facility] [place], [address], 04/07/2020 14:37:46 04/07/2004/07/2020 CBC w/ auto diff hematocrit 39.4 % 34.1-4 4.7 Not Available [facility] [place], [address], 04/07/2020 14:37:46 04/07/2004/07/2020 CBC w/ auto diff platelet count 289 10^3/ uL 158-38 4 Not Available [facility] [place], [address], 04/07/2020 14:37:46 04/07/2004/07/2020 CBC w/ auto diff MCV 93 fL 76-98 Not Available [facility] [place], [address], 04/07/2020 14:37:46 04/07/2004/07/2020 CBC w/ auto diff MCH 29.7 pg 23.5-3 2.8 Not Available [facility] [place], [address], 04/07/2020 14:37:46 04/07/2004/07/2020 CBC w/ auto diff MCHC 32.0 g/dL 31.4-3 5.2 Not Available [facility] [place], [address], 04/07/2020 14:37:46 04/07/2004/07/2020 CBC w/ auto diff RDW-CV 12.4 % 12.1-1 5.9 Not Available [facility] [place], [address], 04/07/2020 14:37:46 04/07/2004/07/2020 CBC w/ auto diff neutro-segs % 59.9 % 37.0-7 3.0 Not Available [facility] [address] [place] [address], [address], 04/07/2020 14:37:46 04/07/2004/07/2020 CBC w/ auto diff lymphocytes% 27.6 % 18.0-5 1.0 Not Available [facility] [address] [place] [address], [address], 04/07/2020 14:37:46 04/07/2004/07/2020 CBC w/ auto diff monocytes% 7.8 % 4.0-12 .0 Not Available [facility] [address] [place] [address], [address], 04/07/2020 14:37:46 04/07/2004/07/2020 CBC w/ auto diff eosinophils % 3.4 % 1.0-9. 0 Not Available [facility] [address] [place] [address], [address], 04/07/2020 14:37:46 04/07/2004/07/2020 CBC w/ auto diff basophils 0.9 % 0.0-1. 0 Not Available [facility] [address] [place] [address], [address], 04/07/2020 14:37:46 04/07/2004/07/2020 CBC w/ auto diff neutrophil, absolute 3.40 10^3/ uL 1.43-6 .19 Not Available [facility] [address] [place] [address], [address], 04/07/2020 14:37:46 04/07/2004/07/2020 CBC w/ auto diff lymphocytes, absolute 1.56 10^3/ uL 1.02-3 .25 Not Available [facility] [address] [place] [address], [address], 04/07/2020 14:37:46 04/07/20 20 04/07/2020 CBC w/ auto diff monocytes, absolute 0.44 10^3/ uL 0.23-0 .76 Not Available [facility] [place], [address], 04/07/2020 14:37:46 04/07/20 20 04/07/2020 CBC w/ auto diff eosinophils, absolute 0.19 10^3/ uL 0.03-0 .51 Not Available [facility] [address] [place], [place] [address] [place], [address], 04/07/2020 14:37:46 04/07/20 20 04/07/2020 CBC w/ auto diff basophils, absolute 0.05 10^3/ uL 0.01-0 .08 Not Available [facility] [address] [place] [address], [address], 04/07/2020 14:37:46 04/07/20 20 04/07/2020 vitam in D, 25-hy droxy , total , serum vitamin D 17.0 NG/mL 30.0-1 00.0 low Not Available [facility] [address] [place] [address], [address], 04/07/2020 15:09:45 04/07/20 20 04/07/2020 HbA1c (hemo globi n A1c), blood hemoglobin A1C 5.8 % <5.7 high The follo wing range s may be used for inter preta tion of resul ts: 5.7% - 6.4% High Risk for futur e diabe farshad >/= 6.5% Diabe farshad <7.0% Ilsa able for non pregn ant adult s with diabe farshad Tomeka DB, Davide marti M, Hardeep rosales GL, et.al . Guide lines and recom menda tions for labor atory damian sis in the diagn osis and manag ement of diabe farshad christine tus. Diabe farshad Care 2011; e61-e 99 Not Available [facility] [address] [place], [place] [address], [address], 04/07/2020 15:17:28 04/07/20 20 04/07/2020 HbA1c (hemo globi n A1c), blood Q1N-onvamqd average glucose 118 mg/dL Est Avg Gluco se A1c% mg/dL ----- ----- ----- ----- 7 123-1 85 8 147-2 17 9 170-2 49 10 193-2 82 11 217-3 14 Not Available [facility] [address], [place], [address], 04/07/2020 15:17:28 04/07/2004/07/2020 hepat itis C virus Ab, serum hepatitis C virus Non-Re active non-re active Testi ng perfo rmed on [facility] XP Not Available [facility] [address], [place], [address], 04/07/2020 15:45:04 04/07/2004/07/2020 lipid panel , serum cholesterol 225 mg/dL <199 high Expec rylee Value s: <200 mg/dL Ilsa eable 200-2 40 mg/dL Borde rline >240 mg/dL High Risk Not Available [facility] [address], [place], [address], 04/07/2020 17:08:00 04/07/2004/07/2020 lipid panel , serum HDLC 62 mg/dL 40-59 high A HDL level of >=60 mg/dL is consi dered prote ctive again st heart disea se and count s as a nega tive risk facto r. Its prese nce remov es one risk facto r from the total count . Not Available [facility] [address] [place], [address], 04/07/2020 17:08:00 04/07/20 20 04/07/2020 lipid panel , serum triglyceride 119 mg/dL <149 Expec rylee Value s: <150 mg/dL Shani l 150-1 99 mg/dL Borde rline 200-4 99 mg/dL High >=500 mg/dL Very High Not Available [facility] [address] [place], [place] [address], [address], 04/07/2020 17:08:00 04/07/20 20 04/07/2020 lipid panel , serum calculated LDL 139 mg/dL <130 high Not Available [address], [address], 04/07/2020 17:08:00 04/07/20 20 04/07/2020 lipid panel , serum non-HDL 163.0 mg/dL Not Available [facility] [address] [place] [address], [address], 04/07/2020 17:08:00 04/07/2004/07/2020 lipid panel , serum cholesterol/ HDL ratio 3.63 ratio Not Available [address], [address], 04/07/2020 17:08:00 04/07/2004/07/2020 lipid panel , serum LDL/HDL ratio 2.25 ratio Not Available [address], [address], 04/07/2020 17:08:00 04/07/2004/07/2020 CMP, serum or plasm a glucose, fasting 95 mg/dL 70-99 Not Available [address], [address], 04/07/2020 17:08:01 04/07/2004/07/2020 CMP, serum or plasm a BUN 18 mg/dL 9-25 Not Available [facility] [address] [place] [address], [address], 04/07/2020 17:08:01 04/07/2004/07/2020 CMP, serum or plasm a creatinine 0.90 mg/dL 0.51-0 .95 Not Available [facility] [address] [place] [address], [address], 04/07/2020 17:08:01 04/07/20 20 04/07/2020 CMP, serum or plasm a sodium 138 mmol/ L 136-14 5 Not Available [facility] [place], [address], 04/07/2020 17:08:01 04/07/20 20 04/07/2020 CMP, serum or plasm a potassium 4.1 mmol/ L 3.5-5. 1 Not Available [facility] [address] [place], [place] [address], [address], 04/07/2020 17:08:01 04/07/2004/07/2020 CMP, serum or plasm a chloride 106 mmol/ L 100-10 9 Not Available [facility] [address] [place], [place] [address], [address], 04/07/2020 17:08:01 04/07/2004/07/2020 CMP, serum or plasm a carbon dioxide 27.0 mmol/ L 21.0-3 2.0 Not Available [facility] [address] [place], [place] [address], [address], 04/07/2020 17:08:01 04/07/20 20 04/07/2020 CMP, serum or plasm a calcium 8.8 mg/dL 8.5-10 .1 Not Available [facility] [place], [address], 04/07/2020 17:08:01 04/07/2004/07/2020 CMP, serum or plasm a total protein 7.5 g/dL 6.7-8. 4 Not Available [facility] [address] [place], [place] [address], [address], 04/07/2020 17:08:01 04/07/20 20 04/07/2020 CMP, serum or plasm a albumin 3.8 g/dL 3.4-5. 0 Not Available [facility] [address] [place], [place] [address], [address], 04/07/2020 17:08:01 04/07/20 20 04/07/2020 CMP, serum or plasm a total bilirubin 0.35 mg/dL 0.20-1 .00 Not Available [facility] [address] [place] [address], [address], 04/07/2020 17:08:01 04/07/20 20 04/07/2020 CMP, serum or plasm a alkaline phosphatase 55 U/L 45-117 Not Available [facility] [address] [place] [address], [address], 04/07/2020 17:08:01 04/07/20 20 04/07/2020 CMP, serum or plasm a SGOT (AST) 14 U/L 15-37 low Not Available [facility] [address] [place] [address], [address], 04/07/2020 17:08:01 04/07/20 20 04/07/2020 CMP, serum or plasm a SGPT (ALT) 19 U/L 13-56 Not Available [facility] [address] [place] [address], [address], 04/07/2020 17:08:01 04/07/20 20 04/07/2020 CMP, serum or plasm a glomerular filtration rate-calcula rylee >60 mL/mi n/1.7 3m2 > 60 GFR shoul d be appli ed to patie nts 18 yrs or older . If patie nt is Afric an Ameri can multi ply resul t by 1.210 . Not Available [facility] [address] [place] [address], [address], 04/07/2020 17:08:01 04/07/20 20 04/07/2020 TSH, serum or plasm a TSH - reflex to FT4 2.440 uIU/m L 0.459- 4.229 Not Available [facility] [address] [place] [address], [address], 04/07/2020 17:08:02 05/05/20 20 05/05/2020 MAMMO , scree stewart, digit al, bilat eral No observ ation record ed. [email or web address] [facility] [address], [place], [address], 05/06/2020 10:18:36 05/21/20 20 05/20/2020 US, breas t, bilat eral No observ ation record ed. BAYLEE [facility] [address], [place], [address], 05/25/2020 10:22:50 Result Notes None recorded. Problems Name Problem SNOMED Code Status Onset Date Resolution Date Notes Provider Name and Address Organization Details Recorded Time Irritabl e bowel syndrome 19980691 Active constipa tion Karely Borja Jr, DO [address] [place], [address] , [place] - .[facility] 6 12:36:19 Hiatal hernia 74517309 Active 2001 Karely Borja Jr, DO [address] [place], [address] , [place] - .[facility] 6 12:36:19 Ankle pain 254915237 Completed 201710/03/2018 Jo Ann Cast APN [address] [place], [address] , [place] - .[facility] 9 10:40:17 Sprain of left ankle 83889897313 023867 Active 2017 Brandan CARYM [address] [place], [address] , [place] - .[facility] 8 23:58:53 Plantar fasciiti s 003889082 Active 2017 Brandan Bueno DPM [address] [place], [address] , [place] - .[facility] 8 10:53:03 Hyperlip idemia 84484842 Active 2018 LDL - 143 Jo Ann Cast APN [address] [place], [address] , [place] - .[facility] 9 12:45:23 Vitamin D deficien cy 17994661 Active 2018 Jo Ann Segun [address] [place], [address] , [place] - .[facility] 9 12:46:04 Family history of malignan t neoplasm of ovary 394537770 Active 2019 Jo Ann Segun [address] [place], [address] , [place] - .[facility] 0 11:36:59 Problem Notes None recorded. Procedures Surgical History Date Name Laterality Status Provider Name and Address Organization Details Recorded Time 5 Date of Last Pap Smear completed Karely Borja Jr, DO [address] [place], [address], [facility] - .[facility] 11/04/2015 12:21:44 2 Orthopedic Surgery completed Ladan El [place] - .[facility] 07/13/2015 15:38:59 Imaging Results Imaging Date Name Status LastModified by Organiz ation Details LastModified Time 05/05/2020 MAMMO, screening, digital, bilateral completed [email or web address] [facility] [address] [place], [address], 05/06/2020 10:18:36 05/20/2020 US, breast, bilateral completed BAYLEE [facility] [address] [place], [address], 05/25/2020 10:22:50 Procedure Notes None recorded. Medical Equipment None Reported. Allergies Allergen ID Allergen Name Allergen Category Reaction Reaction Severity Criticality Documentation Date Start Date Code Code System Note Provider Name and Address Organization Details Recorded Time 147581 Skelaxin medicatio n rash Not available Not available 07/13/2015 19939 5 RxNorm Karely Borja Jr, DO [address] [place], [address] , [place] - .[facility] 6 15:56:11 Medications Name Sig Start Date Stop Date Status Note LastModified by Organization Details LastModified Time Miralax 17 gram/dose oral powder Take 17 g every day by oral route. 09/11 completed Not Available Not Available Not Available Augmentin 875 mg-125 mg tablet Take 1 tablet every 12 hours by oral route for 7 days. 10/03 completed Not Available Not Available Not Available triamcinolo ne acetonide 0.1 % topical cream APPLY TO ECZEMA ON BODY TWICE A DAY active Not Available Not Available No t Available amoxicillin 500 mg tablet 03/10 completed Not Available Not Available Not Available triamcinolo ne acetonide 0.025 % topical cream CLAIRE EXT TO BODY BID FOR 2 WKS active Not Available Not Available No t Available Kenalog 10 mg/mL suspension for injection Take 1 mL by injection route. 03/10 completed Not Available Not Available Not Available prednisone 50 mg tablet active Not Available Not Available Not Available mupirocin 2 % topical ointment APPLY TWICE A DAY TO BIOPSY SITE X2 WEEKS. active Not Available Not Available No t Available ergocalcife rol (vitamin D2) 1,250 mcg (50,000 unit) capsule Take 1 capsule every week by oral route. 03/10 completed Not Available Not Available Not Available bromphenira mine-pseudo ephedrine-D M 2 mg-30 mg-10 mg/5 mL oral syrup 10/20 completed Not Available Not Available Not Available diazepam 5 mg tablet take 1-2 tablets twice daily as needed for dizziness (max 4/d) 09/11 completed Not Available Not Available Not Available Ventolin HFA 90 mcg/actuati on aerosol inhaler active Not Available Not Available Not Available meclizine 25 mg chewable tablet Chew 1 tablet 3 times a day by oral route as needed. 2015 active Not Available Not Available Not Avai lable escitalopra m 10 mg tablet TAKE 1 TABLET BY MOUTH EVERY DAY active Not Available Not Available No t Available bupivacaine (PF) 0.5 % (5 mg/mL) injection solution Take 1 mL by injection route. 03/10 completed Not Available Not Available Not Available Prilosec OTC 20 mg tablet,yuniel yed release Take 1 tablet every day by oral route. 09/11 completed Not Available Not Available Not Available nitrofurant oin monohydrate /macrocryst als 100 mg capsule Take 1 capsule every 12 hours by oral route for 5 days. 03/10 completed Not Available Not Available Not Available meclizine as needed for dizziness 10/03 completed Not Available Not Available Not Available Nexium 24HR active Not Available Not A vailable Not Available Vitals Date Recorded Body height Body mass index (BMI) Body weight Body temperature Heart rate Systolic blood pressure Diastolic blood pressure Provider Name and Address Organization Details Last Updated DateTime 8 172.72 cm 28.9 kg/m2 65375.5 5 g 97.8 [degF] 74 /min 110 mm[Hg] 74 mm[Hg] Mamadou Nieves [place] - .[facility] 8 15:38:50 Date Recorded Body height Body mass index (BMI) Body weight Body temperature Heart rate Oxygen saturation Oxygen saturation in Arterial blood by Pulse oximetry Systolic blood pressure Diastolic blood pressure Provider Name and Address Organization Details Last Updated DateTime 9 172.72 cm 30.4 kg/m2 18226.4 7 g 97.6 [degF] 78 /min 98 % 98 % 110 mm[Hg] 70 mm[Hg] Ladan Henry [place] - .[facility] 9 10:04:54 Date Recorded Body height Body mass index (BMI) Body weight Body temperature Heart rate Systolic blood pressure Diastolic blood pressure Provider Name and Address Organization Details Last Updated DateTime 9 172.72 cm 30.4 kg/m2 49708.4 7 g 97.8 [degF] 80 /min 118 mm[Hg] 82 mm[Hg] Shereen Warren [place] - .[facility] 9 10:45:12 Date Recorded Body height Body mass index (BMI) Body weight Heart rate Systolic blood pressure Diastolic blood pressure Provider Name and Address Organization Details Last Updated DateTime 0 172.72 cm 30.4 kg/m2 82552.4 7 g 98 /min 118 mm[Hg] 74 mm[Hg] Marylin Dyson [place] - .[facility] 0 14:34:56 Date Recorded Body height Body mass index (BMI) Body weight Heart rate Systolic blood pressure Diastolic blood pressure Provider Name and Address Organization Details Last Updated DateTime 0 172.72 cm 30.7 kg/m2 85386.6 6 g 86 /min 124 mm[Hg] 70 mm[Hg] Mamadou Valladares REBEL - .[facility] 0 09:44:34 Social History Question Answer Notes LastModified by Organization Details LastModified Time Tobacco Smoking Status Never Smoker REBEL [place] - .[facility] 07/13/2015 15:38:59 What Is Your Level Of Alcohol Consumption? Occasional [email or web address] Information not available 07/13/2015 Animal Exposure? Yes Dog Informat ion not available 01/26/2018 What Is Your Level Of Caffeine Consumption? Occasional [email or web address] Information not available 10/03/2018 Are You Currently Employed? Yes Information not available 01/26/2018 What Type Of Diet Are You Following? 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 No Information not available 01/26/2018 Hard Of Hearing Or Deaf In One Or Both Ears? No Information not available 01/26/2018 Legally Blind In One Or Both Eyes? No Information not available 01/26/2018 Live Alone Or With Others? With Others Information not available 01/26/2018 *Advanced Directive No Information not available 01/26/2018 *Gender ID Female [email or web address] Information not available 07/13/2015 * Gender Female [email or web address] Information not available 07/13/2015 *Sexual Orientation Homosexual Information not available 09/11/2017 *Advance Directive On File No Information not available 01/26/2018 RISK LEVEL - Segmentation Level 0 - Unknown/Insuffi cient Recent Data [email or web address] Information not available 08/25/[address] Ind[address]ently [email or web address] Information not available 07/13/2015 What Was The Date Of Your Most Recent Tobacco Screening? 06/02/2020 [email or web address] Information not available 06/02/2020 How Many Children Do You Have? 0 [email or web address] Information not available 07/13/2015 What Is Your Relationship Status? Has A Information not available 09/11/2017 Seat Belts Used Routinely Yes [email or web address] Information not available 07/13/2015 Do You Use Sunscreen Routinely? Yes [email or web address] Information not available 07/13/2015 Sex: Unknown Functional Status Question Answer Note LastModified by Organizat ion Details LastModified Time Do you have transportation difficulties? No Information not available 01/26/2018 Are you able to care for yourself? Yes Information not available 01/26/2018 What is your exercise level? Moderate Information not available 01/26/2018 Mental Status None recorded. Family History Relationship Description Onset Age of this Age Resolved Age Notes LastModified by Organization Details LastModified Time Mother History of carcinoma 47 ovaria n - at age 47 Not available 03/10/2020 14:46:10 Father Alzheimer's disease 83 [facility] Not available 2015 12:20:40 Father Malignant neoplasm of urinary bladder was a firefi ghter [facility] Not available 11/04/2015 12:20:40 Sister Well adult [facility] Not availabl e 11/04/2015 12:20:40 Medical History No medical history recorded. Gynecological History Statement/Question Response Abnormal Pap N Date of Last Pap Smear 09/17/2014 Date of Last Mammogram Obstetrics History GPAL:G 0 P 0 0 0 0 Type Value Living 0 Total 0 Immunizations Vaccine Type Date Status Note Provider Nam e and Address Organization Details Recorded Time Tdap 10/03/2018 completed Not Available [facility] 07/06/2019 02:31:01 Influenza, split virus, quadrivalent, PF 03/10/2020 completed REBEL [place] - .[facility] 03/10/2020 15:09:01 Past Encounters Encounter ID Performer Location Encounter Start Date Encounter Closed Date Diagnosis/Indication Diagnosis SNOMED-CT Code Diagnosis ICD10 Code Diagnosis Note [id number] Karely Borja Jr DO [facility] [place] [address]_ _ 6 [facility],[address] [place] [address] 07/13/2015 15:24:18 07/13/2015 16:16:12 Acute bronchitis 20625917 J20.9 Irritable bowel syndrome 32410262 K58.9 Hiatal hernia 65463507 K 44.9 Vitamin D deficiency 347 80652 E59.9 [id number] Karely Borja Jr DO [facility] [address] 7 07/13/2015 17:38:08 07/13/2015 17:40:46 [id number] Jo Ann Cast APN [facility] [address] [place] [address] 7 10/21/2015 11:33:07 10/21/2015 12:01:02 Vertigo 786171433 R42 Will prescribe meclizine. ENT referral. Patient advised to let me know if symptoms do not improve. [id number] Karely Borja Jr DO [facility] [address] [place] [address] 11/04/2015 11:27:50 11/04/2015 12:58:19 Adult health examination 673104031 Z00.00 Irritable bowel syndrome 13559503 K58.9 Hiatal hernia 73646706 K 44.9 continue Prilosec OTC Vertigo 191265798 R42 rare recurrent symptoms of vertigo (generally few days) next episode, might try benzodiaze gayle (i.e. diazepam 10 mg) [id number] Karely Borja Jr DO [facility] [address] [place] [address] 09/11/2017 13:52:14 09/11/2017 14:35:10 Adult health examination 454743919 Z00.00 Irritable bowel syndrome characterized by constipation 191019187 K58.1 takes miralax daily Hiatal her ricky with gastroesophageal reflux 674808857 K21.9 takes OTC meds as neededcons idering referral to GI Vertigo 129315472 R42 patient with recurrent symptoms taken meclizine in the past [id number] Karely Borja Jr DO [facility] [address] [place] [address] 01/26/2018 12:59:40 01/26/2018 13:32:19 Sprain of left ankle 2350098075 7207353 S93.402A continue ibuprofen as needed [id number] Brandan Ximena DPM [facility] [address] [place], [place] [address] 03/15/2018 16:05:51 03/16/2018 16:18:56 Ankle pain 203174966 M25.572 Sprain of left ankle 070 0388717 2555287 S93.492A [id number] [facility] [address] [place], [place] [address] 03/22/2018 09:24:46 03/26/2018 07:58:24 Ankle pain 629306444 M25.572 Sprain of left ankle 496 6263659 5063325 S93.492A [id number] [facility] [address] [place] [address] 04/05/2018 09:35:47 04/05/2018 12:39:06 Sprain of left ankle 7578228778 6258147 S93.492A Ankle pain 154900273 M25 .572 [id number] [facility] [address] [place] [address] 05/03/2018 11:31:20 05/11/2018 07:19:49 Sprain of left ankle 6965210110 4798120 S93.492A Plantar fasciitis 122947 003 M72.2 Ankle pain 772638849 M25 .572 [id number] Ilya Adorno [facility] [address] [place] [address] 05/31/2018 15:22:09 05/31/2018 15:50:15 Congestion of nasal sinus 45601108 R09.81 Given symptoms x 10 days unresponsi ve to supportive measures, tx with Augmentin to cover for sinusitis. Advised probiotic to minimize GI upset (hx IBS).Toyin nue neti-pot and mucinex. May try flonase. [id number] Jo Ann Cast APN [facility] [address] [address] 10/03/2018 09:53:15 10/03/2018 10:41:45 Active or passive immunization 347992196 Z23 Adult heal th examination 088636283 Z00.00 Overall, healthy exam except overweight .Encourage d more routine exercise and continue healthy diet.She is due for Pap and mammo.Will schedule with ELECTRICIAN TECHNICIAN.She will return for fasting BW. Plantar fasciitis 20280119 003 M72.2 Continue exercises and stretching .Encourage d follow up with Dr. Major with persistent pain. 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 Patient understand s to call with worsening symptoms, including fever and back pain. 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 Administra tion of influenza vaccine 39468178 Z23 Viral screening 98873188 4 Z11.59 Vitamin D deficiency 347 20731 E55.9 [id number] Ilya [facility] [address] [place] [address] 06/02/2020 09:33:54 06/02/2020 13:07:08 Depressive disorder 30752490 F32.9 PHQ - 9 is 10.Lengthy discussion about both pharmacolo gical and non pharmacolo gical treatment of depression Will start on Lexapro 10 mg. Reviewed proper usage of medication , potential side effects, and risks.She will f/u in 1 month or sooner if needed.Als o referral to . Health Concerns Section Related Observation LastModified by Organization Detai ls LastModified Time None Recorded Concern Status LastModified by Organization Details LastModified Time None Recorded Advance Directives Directive None Recorded Payers Encounter Date Sequence Insurance Name Policy Number Policy Carty Covered Member ID Carty Member ID Guarantor Name 05/31/[address] [facility] [id number] Etelvina Croosk [id number] Etelvina Franco n 10/03/2018 1 [facility] [id number] Etelvina Crooks [id number] Etelvina Franco n 11/15/2018 1 [facility] [id number] Etelvina Crooks [id number] Etelvina Franco n 03/10/2020 1 [employer] - OPEN ACCESS PLUS [id number] Etelvina Crooks [id number] Etelvina Franco n 06/02/2020 1 [employer] - OPEN ACCESS PLUS [id number] Etelvina Crooks [id number] Etelvina Franco n Notes Date Note Type Note Provider Name and Address Organization Details Recorded Time 05/31/2018 text/html Sick with congestion and sinus pressure since last week- 05/21.Neti-pot not helpful on L.Using mucinex and tylenol sinus severe.Denies cough. No fever.Did not have a flu vaccine. Robert Banuelos APN 1 [facility], [place], [address], [place] - .[facility] 05/31/2018 15:52:23 10/03/2018 text/html 42 yr old female , here for physical exam.She is concerned about weight gain over the past several years.She reports low back pain and plantar fasciitis has limited her exercise to a certain extent.She has been doing PT for plantar fasciitis.Also seeing chiropractor for backLast pap and mammo - 2 years ago. Jo Ann Tiptonasher [place] [place], [address], [facility] - .[facility] 10/03/2018 10:43:04 11/15/2018 text/html 42 yr old female , reports some burning with urination.Symptoms for about 1 week.No fever, no backache.No blood in urine. Jo Ann [address] [place], [address], [facility] - .[facility] 11/15/2018 11:06:55 03/10/2020 text/html 44 yr old female , here for physical exam.H/O low back pain, seeing chiropractor about every 3 weeks.Reports somewhat better.Went to derm today.Due for ELECTRICIAN TECHNICIAN exam and mammo - needs new ELECTRICIAN TECHNICIAN due to insurance change.Notes non tender swelling on abdomen - for about 2 years Jo Ann [address] [place], [address], [facility] - .[facility] 03/12/2020 11:38:32 06/02/2020 text/html 44 yr old female , here to discuss concerns related to depression.She reports stress related to her job - her job has changed a lot, lost funding, and she is actively looking for a new one. This is providing stress.In addition her dog . Her is out of work.She finds herself crying a lot. She is struggling to stay motivated.Also feels unfocused and cloudy + coping mechanisms include walking a few miles daily.She has done therapy in the past but not for a few years.She has never been on medication for mood. Jo Ann [address] [place], [address], [facility] - .[facility] 06/02/2020 15:27:59 OBGyn Episode No OBEpisode recorded.
== END 2024-10-21 09:39 | disposition home or self-care (01) ==
LOC: HO.HMCC 08:31
PROVIDERS: PCP Internal Medicine; Visit Provider Internal Medicine
DX: Z00.01 Encounter for general adult medical examination with abnormal findings (principal); N83.299 Other ovarian cyst, unspecified side; K58.1 Irritable bowel syndrome with constipation; F32.5 Major depressive disorder, single episode, in full remission; R73.01 Impaired fasting glucose; E78.5 Hyperlipidemia, unspecified; K21.9 Gastro-esophageal reflux disease without esophagitis; Z71.89 Other specified counseling; Z00.00 Encounter for general adult medical examination without abnormal findings

== ENCOUNTER → 2024-10-21 08:30 | Outpatient (BNVA) | payer OTHER, SELFPAY | PROVIDERS: PCP Internal Medicine; Visit Provider Internal Medicine | DX: Z00.01 Encounter for general adult medical examination with abnormal findings (principal); N83.299 Other ovarian cyst, unspecified side; K58.1 Irritable bowel syndrome with constipation; F32.5 Major depressive disorder, single episode, in full remission; R73.01 Impaired fasting glucose; E78.5 Hyperlipidemia, unspecified; K21.9 Gastro-esophageal reflux disease without esophagitis; Z79.899 Other long term (current) drug therapy; Z71.89 Other specified counseling | CPT/HCPCS: 96127 ==

== ENCOUNTER 2025-05-29 08:55 | Outpatient (REF) | payer OTHER, SELFPAY ==
--- NOTE | ~2025-05-29 | MM_ITS ---
EXAMINATION: MM SCREENING DIGITAL BREAST TOMOSYNTHESIS, BILATERAL CLINICAL INFORMATION: Screening. Asymptomatic. COMPARISON: Mammography: Comparison is made with available priors TECHNIQUE: Digital breast mammography with tomosynthesis is performed in both the craniocaudal and mediolateral oblique views along with computer-aided detection (CAD). FINDINGS: The breasts are heterogeneously dense, which may obscure small masses. Bilateral circumscribed oval masses which wax and wane consistent with benign fibrocystic changes and cysts. There are no significant masses, abnormal calcifications, or other abnormalities. MM/MM tomosynthesis screening BI IMPRESSION: No mammographic evidence of malignancy. ASSESSMENT: BI-RADS Category 2: Benign RECOMMENDATION: Routine annual mammography screening. 1 year F/U This examination should not preclude the clinical evaluation of a suspicious palpable abnormality. This patient's information was entered into a reminder system with a target due date for their next mammogram. Electronically signed by: Karla Jenkins DO 05/30/2025 07:08 PM [facility]LEX
== END 2025-05-29 08:56 | disposition home or self-care (01) ==
LOC: HO.MAMMO 08:55
PROVIDERS: PCP Internal Medicine; Visit Provider Internal Medicine
DX: Z12.31 Encounter for screening mammogram for malignant neoplasm of breast (principal)
CPT/HCPCS: 77063; 77067

== ENCOUNTER → 2025-05-29 09:00 | Outpatient (BNV) | payer OTHER, SELFPAY | PROVIDERS: PCP Internal Medicine; Visit Provider Internal Medicine | DX: Z12.31 Encounter for screening mammogram for malignant neoplasm of breast (principal) | CPT/HCPCS: 77063; 77067 ==